=== PATIENT | female | born 1950 | race African-American/Black ===

== ENCOUNTER 2018-08-22 18:10 | Inpatient (IN) | payer MEDICARE, MEDICAID, SELFPAY ==
[2018-08-22 18:12] VITALS: BP 158/96; PULSE 73; RESP 18; TEMP 37.1; O2SAT 100; BMI 25.2
[2018-08-22] MEDS: HYDROcodone Bitartrate/Apap 5/325 Tablet PO (18:39)
--- NOTE | 2018-08-22 18:45 | RAD_ITS ---
STUDY: X-RAY - RIGHT KNEE REASON FOR EXAM: Female, 68 years old. Acute fracture of the distal femur. TECHNIQUE: AP and crosstable lateral view(s) of the knee. COMPARISON: Prior comparison studies are not available for review at this time. FINDINGS: There is demineralization of the visualized distal femur. There is an acute displaced fracture of the distal femoral diaphysis just proximal to the femoral prosthesis. Angulated fracture fragments are present at approximately 55 degrees There is demineralization of the tibia and fibula. 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 Patient has had a total right knee arthroplasty. Patient has distal femoral, proximal tibial and posterior patellar components. Normal patellofemoral articulation. There is a soft tissue prominence in the suprapatellar region suggesting a small volume joint effusion. There is soft tissue swelling. RAD/Knee 1 or 2 Views IMPRESSION: 1. Acute angulated displaced fracture of distal femoral diaphysis. 2. Osteoporosis. 3. Status post total right knee arthroplasty. Electronically Signed: Faith Garay MD at 19:34 EDT , Service support ,
[2018-08-22] MEDS: Morphine 4 MG/ML Syringe IV (19:00)
[2018-08-22] MEDS: Ondansetron 4 MG/2 ML Vial IV (19:00)
--- NOTE | 2018-08-22 19:08 | ED.RN ---
NO OLD EKGS IN MUSE
[2018-08-22 19:22] LABS: Absolute Lymphocyte Count 1.54 X10^3/ul (0.83-4.51); Absolute Neutrophil Count 3.9 X10^3/uL (2.0-7.7); Basophil# 0.01 X10^3/uL; Basophil% 0.2 % (0-1); Eosinophil# 0.07 X10^3/uL; Eosinophils% 1.2 % (0-5); Hematocrit 38.4 % (37-47); Hemoglobin 12.2 g/dl (12.0-15.0); Lymphocyte # 1.54 X10^3/ul (4.0); Lymphocyte % 26.1 % (19-41); Mean Corp Hgb Conc 31.8 g/gl (32-36); Mean Corpuscular Hgb 27.1 pg (27.0-32.0); Mean Corpuscular Volume 85.3 fL (81-99); Mean Platelet Vol. 8.7 fl (6.2-12.0); Monocyte# 0.38 X10^3/uL; Monocyte% 6.4 % (0-10); Neutrophil % 65.9 % (47-70); Platelet Count 304 K/mm3 (150-450); RBC Distribution Width SD 40.6 fl (35.1-43.9); White Blood Count 5.9 K/mm3 (4.4-11.0)
[2018-08-22 19:23] LABS: POSITIVE COUNT NO; POSITIVE DIFFERENTIAL NO; POSITIVE MORPHOLOGY NO
[2018-08-22 19:27] LABS: International Normalized Ratio 1.2; Prothrombin Time (Protime)PT. 14.9 SECONDS (11.7-14.9)
--- NOTE | 2018-08-22 19:27 | ED.VISSUMM ---
- ER Visit Summary Date of Service: 08/22/18 Chief Complaint: Right knee pain History of Present Illness: The patient is a 68 F who presents with right knee pain. She states that she fell on her deck. She was wearing flip-flops and slipped on the wet deck. Her right knee was caught behind her and she fell with all of her weight. She had a right total knee arthroplasty on that side in [address] [facility] in [place]. She was unable to walk afterwards. She called EMS. They administered a vacuum splint on that leg. Physical Examination: Vital signs reviewed. Right knee exam reveals no significant tenderness to palpation. However, if you move her knee and any range of motion it is painful. She has mild swelling. She has 2+ DP pulses. Test Results: Right knee x-ray reveals a right distal femur fracture Emergency Department Course and Treatment: Patient was discussed with Dr. Martines. She reviewed the images and she states that she will be able to repair this here. Patient was given [place] and morphine for pain. She will be admitted to the hospitalist. Treatment Plan: [] Disposition: Admit Impression: Closed right distal femur fracture This note was generated with Aprimo dictation software. It may contain incorrect words, spelling, and punctuation that were not noted in review of the chart prior to signing ED Disposition - Plan for ED Patient: Chief Complaint: Lower Extremity Injury Referrals: [facility] Doctor,Out of [Primary Care Provider] -
--- NOTE | 2018-08-22 19:34 | ED.DCSUM_ITS ---
- ER Visit Summary Date of Service: 08/22/18 Chief Complaint: Right knee pain History of Present Illness: The patient is a 68 F who presents with right knee pain. She states that she fell on her deck. She was wearing flip-flops and slipped on the wet deck. Her right knee was caught behind her and she fell with all of her weight. She had a right total knee arthroplasty on that side in 2016 at [facility] in [place]. She was unable to walk afterwards. She called EMS. They administered a vacuum splint on that leg. Physical Examination: Vital signs reviewed. Right knee exam reveals no significant tenderness to palpation. However, if you move her knee and any range of motion it is painful. She has mild swelling. She has 2+ DP pulses. Test Results: Right knee x-ray reveals a right distal femur fracture Emergency Department Course and Treatment: Patient was discussed with Dr. Martines. She reviewed the images and she states that she will be able to repair this here. Patient was given [place] and morphine for pain. She will be admitted to the hospitalist. Treatment Plan: [] Disposition: Admit Impression: Closed right distal femur fracture This note was generated with [employer] dictation software. It may contain incorrect words, spelling, and punctuation that were not noted in review of the chart prior to signing ED Disposition - Plan for ED Patient: Chief Complaint: Lower Extremity Injury Referrals: [facility] Doctor,Out of [Primary Care Provider] -
[2018-08-22 19:37] LABS: Anion Gap 10 (5-15); BUN 11 mg/dL (7-18); BUN/Creat Ratio 11.8 RATIO (10-20); Calcium,Total 9.2 mg/dL (8.5-10.1); Chloride 103 mmol/L (98-107); Creatinine, Serum 0.93 mg/dL (0.55-1.02); EST Glomerular Filtration Rate 63 mL/min (>60); Est Glom Filt Rate - Afr Amer 77 mL/min (>60); Estimated Creatinine Clearance 51.37 ml/min; Glucose 98 mg/dL (74-106); Potassium 3.9 mmol/L (3.5-5.1); Sodium Level 140 mmol/L (136-145)
--- NOTE | 2018-08-22 19:40 | HP.PCM_ITS ---
Problem List (1) Femur fracture, right Status: Acute (2) HTN (hypertension) Status: Chronic History of Present Illness Date of Admission: 08/22/18 Chief Complaint: FALL The patient is a 68 year old F with a significant history of hypertension, hyperlipidemia, arthritis, bilateral knee replacements who presented because of a fall on the same day of admission. Patient reported that while at home she slid and fell trapping her right leg. She denied any dizziness, or palpitations before the fall. She thinks that her fall was purely mechanical. She reports excruciating pain in her right knee because of the fall. She describes the pain as a 'strain'. In the same extremity she reports buttocks pain and leg pain. She sustained a bruise at her right posterior forearm; and a small wound at right medial ankle because of the fall. At emergency department she received pain medication that helped with her pain. X-ray showed Acute angulated displaced fracture of distal femoral diaphysis. Orthopedic doctor, Dr. Martines, was consulted by the ED doctor. Per ED doctor, Dr. Martines might do surgery tomorrow. Past Medical History Past Medical History (Chronic Problems): Chronic Problems HTN (hypertension) (Chronic) Allergies meloxicam Allergy (Verified 08/22/18 18:15) Itching Sulfa (Sulfonamide Antibiotics) Allergy (Verified 08/22/18 18:15) Swelling Home Medications: Ambulatory Orders Medication Instructions Recorded Amlodipine [Norvasc] 10 mg PO DAILY 08/22/18 Aspirin 81 mg PO DAILY 08/22/18 Atorvastatin Calcium [Lipitor] 20 mg PO QHS 08/22/18 Cholecalciferol (Vitamin D3) 2,000 unit PO DAILY 08/22/18 [Vitamin D3] Cyanocobalamin (Vitamin B-12) 1,000 mcg PO DAILY 08/22/18 [Vitamin B-12] Surgical History: - - Bilateral knee surgery; surgery on fourth finger of left hand. Bilateral foot surgery. Lives: - - She lives by herself in [place]. But she is currently visiting her youngest daughter. Smoking Status: Former smoker Alcohol: None - *Family History Maternal Family History: Family History (Last Updated 08/22/18 @ 20:02 by Rolando Aparicio MD) Mother Chronic mental illness Father Cancer Emphysema lung Review of Systems Constitutional: Denies: Chills, Fever, Weight Change Eyes: Denies: Blurred vision, Pain HEENT: Denies: Head Aches, Sinus Congestion, Sinus Drainage Cardiovascular: Denies: Chest Pain, Palpitations Respiratory: Denies: Cough, Shortness of Breath, Shortness of breath at rest, Shortness of breath upon exertion, Sputum production Gastrointestinal: Denies: Abdominal Pain, Nausea, Vomiting Genitourinary: Denies: Dysuria Musculoskeletal: Reports: Leg Pain - R leg. Denies: Joint Pain, Joint Tenderness Skin: Denies: Rash, Wounds Neurological: Denies: Numbness, Tingling, Focal weakness Psychiatric: Denies: Anxiety, Depression, Homicidal Ideations, Suicidal Ideations Hematologic/ Lymphatic: Denies: Easy Bruising, Easy Bleeding VTE Information - Inpt Only VTE Present on Admission: No VTE Mechan Device Prophylaxis: None VTE Pharm Prophylaxis ordered?: Yes Patient Problems: Active and Suspected Problems Femur fracture, right (Acute) - Physical Exam General: Alert, Oriented x3, Cooperative HEENT: Atraumatic, PERRLA, EOMI, Normocephalic Neck: Supple, No JVD, Negative Carotid Bruits Lungs: Clear to auscultation, Normal air movement Cardiovascular: Regular rate, No murmurs Abdomen: Bowel Sounds Present, Soft, Non Tender Extremities: Capillary Refill Less than 3 Seconds, - - Surgical scar on right knee. swelling of right thigh. Decreased range of motion of right lower extremities. Left lower extremities with sugar scar on knee, otherwise unremarkable Skin: Excoriated - right posterior forearm; opening at right medial ankle. Musculoskeletal: No Tenderness to Palpation of Joints or Extremities Neurological: Cranial nerves II-XII grossly intact Psych/Mental Status: Normal Affect, Anxious - and shaking Vital Signs Temp Pulse Resp BP Pulse Ox 98.7 F 73 18 158/96 H 100 08/22/18 18:12 08/22/18 18:12 08/22/18 18:12 08/22/18 18:12 08/22/18 18:12 Weight: 68.946 kg Body Mass Index (BMI) 25.2 Laboratory Tests Past 24 Hrs 08/22/18 08/22/18 08/22/18 19:10 19:10 19:10 WBC 5.9 RBC 4.50 Hgb 12.2 Hct 38.4 MCV 85.3 MCH 27.1 MCHC 31.8 L RDW 13.0 RDW Differential 40.6 Plt Count 304 MPV 8.7 Immature Gran % (Auto) 0.200 Neut % (Auto) 65.9 Lymph % (Auto) 26.1 [place] % (Auto) 6.4 Eos % (Auto) 1.2 Baso % (Auto) 0.2 Absolute Neuts (auto) 3.9 Absolute Lymphs (auto) 1.54 Total Counted Not Reportable PT 14.9 INR 1.2 Sodium 140 Potassium 3.9 Chloride 103 Carbon Dioxide 27.0 Anion Gap 10 BUN 11 Creatinine 0.93 Estim Creat Clear Calc 51.37 Est GFR (MDRD) Af Amer 77 Est GFR (MDRD) Non-Af 63 BUN/Creatinine Ratio 11.8 Glucose 98 Calcium 9.2 Assessment/Plan All Active Problems Femur fracture, right (Acute) The patient is a 68 year old F with a significant history of hypertension, hyperlipidemia, arthritis, bilateral knee replacements who presented because of a fall and found to have radiographic evidence of acute angulated displaced fracture of the distal femoral diaphysis. Acute angulated displaced fracture of the distal femoral diaphysis X-ray independent reviewed confirms acute angulated displaced fracture of the distal femoral diaphysis Pain control with as needed oxycodone morphine and scheduled Tylenol. Bowel pr otocol initiated. Keep patient n.p.o. for possible procedure in a.m. In view of patient being n.p.o. we will start IV fluids. Aspirin held. Vitamin D continued Vitamin D level ordered. Right posterior forearm excoriation and opening at right medial ankle. Left Leave CAMPAIGN CONSULTANT Hypertension Blood pressure uncontrolled at the time of admission. Amlodipine continued Labetalol as needed ordered. Hyperlipidemia Lipitor continued DVT prophylaxis Subcutaneous heparin. Code Visit Inpatient E&M: 66945 Init Hosp L3
[2018-08-22 19:48] VITALS: BMI 26.3
[2018-08-22] MEDS: Atorvastatin Calcium 20 MG Tablet PO (20:50)
[2018-08-22] MEDS: 0.9% Normal Saline 1,000 ML 75 ML IV (20:50)
[2018-08-22] MEDS: Heparin Injection (Vial) 5,000 UNIT/ML VIAL 5000 UNIT SC (20:50)
[2018-08-22] MEDS: Senna Tablet 1 TABLET PO (20:50)
[2018-08-22] MEDS: oxyCODONE 5 MG Tablet 10 MG PO (20:51)
[2018-08-22 21:06] VITALS: BMI 26.3
[2018-08-22 21:36] LABS: Vitamin D,25 Hydroxy 37.6 ng/mL (29.95-100.01)
[2018-08-22 22:56] VITALS: BP 119/69; PULSE 90; RESP 18; TEMP 37.2; O2SAT 98
[2018-08-22] MEDS: Morphine 2 MG/ML Syringe IV (22:59)
[2018-08-22] MEDS: Acetaminophen 500 MG Tablet PO (22:59)
[2018-08-23] VITALS (12 sets, daily range): BP systolic 93–116; BP diastolic 55–79; PULSE 67–94; RESP 15–16; TEMP 36.5–37.4; O2SAT 91–98; BMI 26.3
[2018-08-23] MEDS: Morphine 2 MG/ML Syringe IV (06:48)
[2018-08-23 08:20] LABS: BUN 11 mg/dL (7-18); BUN/Creat Ratio 13.6 RATIO (10-20); Calcium,Total 7.8 mg/dL (8.5-10.1); Creatinine, Serum 0.81 mg/dL (0.55-1.02); EST Glomerular Filtration Rate 74 mL/min (>60); Est Glom Filt Rate - Afr Amer 90 mL/min (>60); Glucose 104 mg/dL (74-106)
[2018-08-23 08:21] LABS: Anion Gap 10 (5-15); Chloride 105 mmol/L (98-107); Potassium 3.9 mmol/L (3.5-5.1); Sodium Level 142 mmol/L (136-145)
--- NOTE | 2018-08-23 09:06 | CASEMGMT ---
RICHAR VELASCO Assessment PCP: Dr. Jazzmine Gaspar ([place], [place]) Specialists: Ortho physician retired Pharmacy: [facility] [place] -pt would like scripts sent to [facility] on [address]. Entered in chart Prescription coverage: Yes Living Arrangements: Lives in [place] in ground floor apartment. Was in [place] staying with daughter to help with children when fell. DME: Has walker, cane tub bench in her [place] apartment. Daughter will bring down for her. Social Work Consult:no Intro role of CM to patient in room. She plans to return to her daughter's home in [place] on dc. Daughter has two story home, bedrooms upstairs. RN ROD Encouraged pt to have daughter bring her walker from her apartment for use on dc. -PT/OT evaluations pending due to procedure today. Dr. Martines consult. DC PLAN: Home pending PT/OT evaluations and pt ability on dc.
[2018-08-23] MEDS: Dext 5%-0.45% NS 1,000 ML 75 ML IV ×2 (11:15→16:55)
--- NOTE | 2018-08-23 12:01 | PCM.PN.HOSP ---
Patient Problems: Active and Suspected Problems Femur fracture, right (Acute) Subjective: Patient was admitted yesterday after she had mechanical fall complicating into angulated displaced fracture of distal femoral diaphysis. Patient denies cardiac, pulmonary or abdominal chronic disease. She slipped and fell down with right leg trapped under her buttock. She has bilateral TKR. Vitals/I&O's: Vital Signs Temp Pulse Resp BP Pulse Ox 99.4 F H 82 16 113/79 97 08/23/18 11:46 08/23/18 11:46 08/23/18 11:46 08/23/18 11:46 08/23/18 11:46 Oxygen Delivery Method Room Air Weight: 158 lb 1.143 oz Body Mass Index (BMI) 26.3 Intake and Output for Last 24 Hours 08/21/18 08/22/18 08/23/18 23:59 23:59 23:59 Intake Total 852 / 852 Output Total 800 / 800 Balance 52 / 52 General: Alert, Oriented x3, Cooperative HEENT: Atraumatic, PERRLA, EOMI, Normocephalic Neck: Supple, No JVD, Negative Carotid Bruits Lungs: Clear to auscultation, Normal air movement Cardiovascular: Regular rate, Regular Rhythm, Normal S1, Normal S2, No murmurs Abdomen: Bowel Sounds Present, Soft, Non Tender, Non-Distended Extremities: Capillary Refill Less than 3 Seconds, Edema - Right thigh edema Skin: No rashes, No breakdown Musculoskeletal: No Tenderness to Palpation of Joints or Extremities, Arthritic Changes, Muscle Wasting Neurological: Cranial nerves II-XII grossly intact, Neuro grossly intact Psych/Mental Status: Normal Affect, Appropriate Laboratory Results 08/22/18 19:10: WBC 5.9, RBC 4.50, Hgb 12.2, Hct 38.4, MCV 85.3, MCH 27.1, MCHC 31.8 L, RDW 13.0, RDW Differential 40.6, Plt Count 304, MPV 8.7, Immature Gran % (Auto) 0.200, Neut % (Auto) 65.9, Lymph % (Auto) 26.1, [place] % (Auto) 6.4, Eos % (Auto) 1.2, Baso % (Auto) 0.2, Absolute Neuts (auto) 3.9, Absolute Lymphs (auto) 1.54, Total Counted Not Reportable 08/22/18 19:10: PT 14.9, INR 1.2 08/22/18 19:10: Sodium 140, Potassium 3.9, Chloride 103, Carbon Dioxide 27.0, Anion Gap 10, BUN 11, Creatinine 0.93, Estim Creat Clear Calc 51.37, Est GFR (MDRD) Af Amer 77, Est GFR (MDRD) Non-Af 63, BUN/Creatinine Ratio 11.8, Glucose 98, Calcium 9.2 08/22/18 20:51: Vitamin D 25-Hydroxy 37.6 08/23/18 07:00: Sodium 142, Potassium 3.9, Chloride 105, Carbon Dioxide 27.0, Anion Gap 10, BUN 11, Creatinine 0.81, Estim Creat Clear Calc 56.60, Est GFR (MDRD) Af Amer 90, Est GFR (MDRD) Non-Af 74, BUN/Creatinine Ratio 13.6, Glucose 104, Calcium 7.8 L Current Medications Acetaminophen (Tylenol) 500 mg PO Q6 [facility] Last Admin: 08/23/18 04:46 Dose: Not Given Amlodipine Besylate (Norvasc) 10 mg PO DAILY [facility] Atorvastatin Calcium (Lipitor) 20 mg PO QHS [facility] Last Admin: 08/22/18 20:50 Dose: 20 mg Cholecalciferol (Vitamin D) 2,000 unit PO DAILY [facility] Cyanocobalamin (Vitamin B12) 1,000 mcg PO DAILY [facility] Heparin Sodium (Porcine) (Heparin Na) 5,000 unit SC Q8 [facility] Last Admin: 08/23/18 04:45 Dose: Not Given Cefazolin Sodium 2 gm/ Sodium (Chloride) 120 mls @ 240 mls/hr IV SEND TO OR W/PATIENT ONE Stop: 08/23/18 12:29 Dextrose/Sodium Chloride () 1,000 mls @ 75 mls/hr IV .[id number] [facility] Last Admin: 08/23/18 11:15 Dose: 75 mls/hr Labetalol HCl (Trandate) 10 mg IV Q4H PRN PRN PRN Reason: SBP > 160 Magnesium Hydroxide (Milk Of Magnesia) 30 ml PO DAILY PRN PRN PRN Reason: Constipation Morphine Sulfate () 1 - 2 mg IV Q4H PRN PRN PRN Reason: SEVERE PAIN (-08/27) Last Admin: 08/23/18 06:48 Dose: 2 mg Ondansetron HCl (Zofran) 4 mg IV Q8H PRN PRN PRN Reason: NAUSEA Oxycodone HCl (Oxyir) 10 mg PO Q4H PRN PRN PRN Reason: MODERATE PAIN (4-5/10) Last Admin: 08/22/18 20:51 Dose: 10 mg Senna (Senokot) 1 tablet PO BID [facility] Last Admin: 08/22/18 20:50 Dose: 1 tablet Sodium Chloride () 5 - 30 ml IV UD PRN PRN Reason: SALINE FLUSH Zolpidem Tartrate (Ambien (Generic)) 5 mg PO QHS PRN PRN PRN Reason: INSOMNIA Medical Necessity - Tobacco Use Smoking Status: Former smoker Assessment/Plan All Active Problems Femur fracture, right (Acute) The patient is a 68 year old F with a significant history of hypertension, hyperlipidemia, arthritis, bilateral knee replacements who presented because of a fall and found to have radiographic evidence of acute angulated displaced fracture of the distal femoral diaphysis. Patient denies cardiac history including CHF, coronary artery disease/[place], chronic pulmonary disease or stroke. 1. Acute angulated displaced fracture of the distal femoral diaphysis secondary to mechanical fall X-ray reported as acute angulated displaced fracture of the distal femoral diaphysis Pain control with as needed oxycodone morphine and scheduled Tylenol. Bowel protocol initiated. Patient is n.p.o. and is scheduled for orthopedic procedure as recommended by orthopedic surgeon. On IV fluid D5-NS. Aspirin held. Vitamin D continued Vitamin D level ordered. Right posterior forearm excoriation and at right medial ankle. Mupirocin dressing. Leave open Hypertension Blood pressure uncontrolled at the time of admission. Currently controlled. Amlodipine continued Labetalol as needed ordered. Dyslipidemia Lipitor continued DVT prophylaxis Subcutaneous heparin. Home medication reconciliation done. Code Visit Inpatient E&M: 52141 [facility] L3
--- NOTE | 2018-08-23 12:08 | PN_ITS ---
Patient Problems: Active and Suspected Problems Femur fracture, right (Acute) Subjective: Patient was admitted yesterday after she had mechanical fall complicating into angulated displaced fracture of distal femoral diaphysis. Patient denies cardiac, pulmonary or abdominal chronic disease. She slipped and fell down with right leg trapped under her buttock. She has bilateral TKR. Vitals/I&O's: Vital Signs Temp Pulse Resp BP Pulse Ox 99.4 F H 82 16 113/79 97 08/23/18 11:46 08/23/18 11:46 08/23/18 11:46 08/23/18 11:46 08/23/18 11:46 Oxygen Delivery Method Room Air Weight: 158 lb 1.143 oz Body Mass Index (BMI) 26.3 Intake and Output for Last 24 Hours 08/21/18 08/22/18 08/23/18 23:59 23:59 23:59 Intake Total 852 / 852 Output Total 800 / 800 Balance 52 / 52 General: Alert, Oriented x3, Cooperative HEENT: Atraumatic, PERRLA, EOMI, Normocephalic Neck: Supple, No JVD, Negative Carotid Bruits Lungs: Clear to auscultation, Normal air movement Cardiovascular: Regular rate, Regular Rhythm, Normal S1, Normal S2, No murmurs Abdomen: Bowel Sounds Present, Soft, Non Tender, Non-Distended Extremities: Capillary Refill Less than 3 Seconds, Edema - Right thigh edema Skin: No rashes, No breakdown Musculoskeletal: No Tenderness to Palpation of Joints or Extremities, Arthritic Changes, Muscle Wasting Neurological: Cranial nerves II-XII grossly intact, Neuro grossly intact Psych/Mental Status: Normal Affect, Appropriate Laboratory Results 08/22/18 19:10: WBC 5.9, RBC 4.50, Hgb 12.2, Hct 38.4, MCV 85.3, MCH 27.1, MCHC 31.8 L, RDW 13.0, RDW Differential 40.6, Plt Count 304, MPV 8.7, Immature Gran % (Auto) 0.200, Neut % (Auto) 65.9, Lymph % (Auto) 26.1, [place] % (Auto) 6.4, Eos % (Auto) 1.2, Baso % (Auto) 0.2, Absolute Neuts (auto) 3.9, Absolute Lymphs (auto) 1.54, Total Counted Not Reportable 08/22/18 19:10: PT 14.9, INR 1.2 08/22/18 19:10: Sodium 140, Potassium 3.9, Chloride 103, Carbon Dioxide 27.0, Anion Gap 10, BUN 11, Creatinine 0.93, Estim Creat Clear Calc 51.37, Est GFR (MDRD) Af Amer 77, Est GFR (MDRD) Non-Af 63, BUN/Creatinine Ratio 11.8, Glucose 98, Calcium 9.2 08/22/18 20:51: Vitamin D 25-Hydroxy 37.6 08/23/18 07:00: Sodium 142, Potassium 3.9, Chloride 105, Carbon Dioxide 27.0, Anion Gap 10, BUN 11, Creatinine 0.81, Estim Creat Clear Calc 56.60, Est GFR (MDRD) Af Amer 90, Est GFR (MDRD) Non-Af 74, BUN/Creatinine Ratio 13.6, Glucose 104, Calcium 7.8 L Current Medications Acetaminophen (Tylenol) 500 mg PO Q6 [facility] Last Admin: 08/23/18 04:46 Dose: Not Given Amlodipine Besylate (Norvasc) 10 mg PO DAILY [facility] Atorvastatin Calcium (Lipitor) 20 mg PO QHS [facility] Last Admin: 08/22/18 20:50 Dose: 20 mg Cholecalciferol (Vitamin D) 2,000 unit PO DAILY [facility] Cyanocobalamin (Vitamin B12) 1,000 mcg PO DAILY [facility] Heparin Sodium (Porcine) (Heparin Na) 5,000 unit SC Q8 [facility] Last Admin: 08/23/18 04:45 Dose: Not Given Cefazolin Sodium 2 gm/ Sodium (Chloride) 120 mls @ 240 mls/hr IV SEND TO OR W/PATIENT ONE Stop: 08/23/18 12:29 Dextrose/Sodium Chloride () 1,000 mls @ 75 mls/hr IV .[id number] [facility] Last Admin: 08/23/18 11:15 Dose: 75 mls/hr Labetalol HCl (Trandate) 10 mg IV Q4H PRN PRN PRN Reason: SBP > 160 Magnesium Hydroxide (Milk Of Magnesia) 30 ml PO DAILY PRN PRN PRN Reason: Constipation Morphine Sulfate () 1 - 2 mg IV Q4H PRN PRN PRN Reason: SEVERE PAIN (-08/27) Last Admin: 08/23/18 06:48 Dose: 2 mg Ondansetron HCl (Zofran) 4 mg IV Q8H PRN PRN PRN Reason: NAUSEA Oxycodone HCl (Oxyir) 10 mg PO Q4H PRN PRN PRN Reason: MODERATE PAIN (4-5/10) Last Admin: 08/22/18 20:51 Dose: 10 mg Senna (Senokot) 1 tablet PO BID [facility] Last Admin: 08/22/18 20:50 Dose: 1 tablet Sodium Chloride () 5 - 30 ml IV UD PRN PRN Reason: SALINE FLUSH Zolpidem Tartrate (Ambien (Generic)) 5 mg PO QHS PRN PRN PRN Reason: INSOMNIA Medical Necessity - Tobacco Use Smoking Status: Former smoker Assessment/Plan All Active Problems Femur fracture, right (Acute) The patient is a 68 year old F with a significant history of hypertension, hyperlipidemia, arthritis, bilateral knee replacements who presented because of a fall and found to have radiographic evidence of acute angulated displaced fracture of the distal femoral diaphysis. Patient denies cardiac history including CHF, coronary artery disease/[place], chronic pulmonary disease or stroke. 1. Acute angulated displaced fracture of the distal femoral diaphysis secondary to mechanical fall X-ray reported as acute angulated displaced fracture of the distal femoral diaphysis Pain control with as needed oxycodone morphine and scheduled Tylenol. Bowel protocol initiated. Patient is n.p.o. and is scheduled for orthopedic procedure as recommended by orthopedic surgeon. On IV fluid D5-NS. Aspirin held. Vitamin D continued Vitamin D level ordered. Right posterior forearm excoriation and at right medial ankle. Mupirocin dressing. Leave open Hypertension Blood pressure uncontrolled at the time of admission. Currently controlled. Amlodipine continued Labetalol as needed ordered. Dyslipidemia Lipitor continued DVT prophylaxis Subcutaneous heparin. Home medication reconciliation done. Code Visit Inpatient E&M: [id number] [facility] L3
--- NOTE | 2018-08-23 13:19 | NURSING ---
PT TO OR VIA BED.
[2018-08-23] MEDS: Cefazolin 2 GM in 0.9% Normal Saline 100 ML IV (13:35)
--- NOTE | 2018-08-23 13:36 | PCM.CONS.GEN ---
Problem List (1) Fracture, femur, distal Status: Acute Qualifiers: Encounter type: initial encounter Fracture type: closed Fracture morphology: other fracture Laterality: right Qualified Code(s): S72.491A - Other fracture of lower end of right femur, initial encounter for closed fracture Reason for Consult History of Present Illness: The patient is a 68 year old F [] Past Medical History Past Medical History (Chronic Problems): Chronic Problems HTN (hypertension) (Chronic) Allergies meloxicam Allergy (Verified 08/22/18 18:15) Itching Sulfa (Sulfonamide Antibiotics) Allergy (Verified 08/22/18 18:15) Swelling Home Medications: Ambulatory Orders Medication Instructions Recorded Acetaminophen 500 mg PO TID PRN PRN 08/22/18 Amlodipine [Norvasc] 10 mg PO DAILY 08/22/18 Aspirin 81 mg PO DAILY 08/22/18 Atorvastatin Calcium [Lipitor] 20 mg PO QHS 08/22/18 Cholecalciferol (Vitamin D3) 2,000 unit PO DAILY 08/22/18 [Vitamin D3] Cyanocobalamin (Vitamin B-12) 1,000 mcg PO DAILY 08/22/18 [Vitamin B-12] Surgical History: - - Bilateral knee surgery; surgery on fourth finger of left hand. Bilateral foot surgery. Lives: - - She lives by herself in [place]. But she is currently visiting her youngest daughter. Smoking Status: Former smoker Alcohol: None - *Family History Maternal Family History: Family History (Last Updated 08/22/18 @ 20:02 by Rolando Aparicio MD) Mother Chronic mental illness Father Cancer Emphysema lung Patient Problems: Active and Suspected Problems Femur fracture, right (Acute) Fracture, femur, distal (Acute) - Physical Exam Vital Signs Temp Pulse Resp BP Pulse Ox 99.4 F H 82 16 113/79 97 08/23/18 11:46 08/23/18 11:46 08/23/18 11:46 08/23/18 11:46 08/23/18 11:46 Oxygen Delivery Method Room Air Weight: 158 lb 1.143 oz Body Mass Index (BMI) 26.3 Intake and Output for Last 24 Hours 08/21/18 08/22/18 08/23/18 23:59 23:59 23:59 Intake Total 1372 / 1372 Output Total 1050 / 1050 Balance 322 / 322 Laboratory Tests Past 24 Hrs 08/22/18 08/22/18 08/22/18 19:10 19:10 19:10 WBC 5.9 RBC 4.50 Hgb 12.2 Hct 38.4 MCV 85.3 MCH 27.1 MCHC 31.8 L RDW 13.0 RDW Differential 40.6 Plt Count 304 MPV 8.7 Immature Gran % (Auto) 0.200 Neut % (Auto) 65.9 Lymph % (Auto) 26.1 Payette % (Auto) 6.4 Eos % (Auto) 1.2 Baso % (Auto) 0.2 Absolute Neuts (auto) 3.9 Absolute Lymphs (auto) 1.54 Total Counted Not Reportable PT 14.9 INR 1.2 Sodium 140 Potassium 3.9 Chloride 103 Carbon Dioxide 27.0 Anion Gap 10 BUN 11 Creatinine 0.93 Estim Creat Clear Calc 51.37 Est GFR (MDRD) Af Amer 77 Est GFR (MDRD) Non-Af 63 BUN/Creatinine Ratio 11.8 Glucose 98 Calcium 9.2 Vitamin D 25-Hydroxy 08/22/18 08/23/18 20:51 07:00 WBC RBC Hgb Hct MCV MCH MCHC RDW RDW Differential Plt Count MPV Immature Gran % (Auto) Neut % (Auto) Lymph % (Auto) Payette % (Auto) Eos % (Auto) Baso % (Auto) Absolute Neuts (auto) Absolute Lymphs (auto) Total Counted PT INR Sodium 142 Potassium 3.9 Chloride 105 Carbon Dioxide 27.0 Anion Gap 10 BUN 11 Creatinine 0.81 Estim Creat Clear Calc 56.60 Est GFR (MDRD) Af Amer 90 Est GFR (MDRD) Non-Af 74 BUN/Creatinine Ratio 13.6 Glucose 104 Calcium 7.8 L Vitamin D 25-Hydroxy 37.6 Assessment/Plan All Active Problems Femur fracture, right (Acute) Fracture, femur, distal (Acute)
--- NOTE | 2018-08-23 13:38 | PCM.CONS.GEN ---
Problem List (1) Fracture, femur, distal Status: Acute Qualifiers: Encounter type: initial encounter Fracture type: closed Fracture morphology: other fracture Laterality: right Qualified Code(s): S72.491A - Other fracture of lower end of right femur, initial encounter for closed fracture Reason for Consult Date of Consultation: 08/23/18 Reason for Consultation: right femur fracture History of Present Illness: The patient is a 68 year old F who slipped in her flip flop slippers walking thru door and on water and hyperflexed her right knee and landed on it. Had to then straighten out her leg and was unable to weight bear on right leg. brought to er where xrays confirm distal femur fracture and ortho consulted. no head trauma, loc, nausea, vomiting, or other constitutional symptoms. pain localized to right knee. had total knee replacement at OSH and has had no issues or pain in knee recently. [] Past Medical History Past Medical History (Chronic Problems): Chronic Problems HTN (hypertension) (Chronic) Allergies meloxicam Allergy (Verified 08/22/18 18:15) Itching Sulfa (Sulfonamide Antibiotics) Allergy (Verified 08/22/18 18:15) Swelling Home Medications: Ambulatory Orders Medication Instructions Recorded Acetaminophen 500 mg PO TID PRN PRN 08/22/18 Amlodipine [Norvasc] 10 mg PO DAILY 08/22/18 Aspirin 81 mg PO DAILY 08/22/18 Atorvastatin Calcium [Lipitor] 20 mg PO QHS 08/22/18 Cholecalciferol (Vitamin D3) 2,000 unit PO DAILY 08/22/18 [Vitamin D3] Cyanocobalamin (Vitamin B-12) 1,000 mcg PO DAILY 08/22/18 [Vitamin B-12] Surgical History: - - Bilateral knee surgery; surgery on fourth finger of left hand. Bilateral foot surgery. Lives: - - She lives by herself in [place]. But she is currently visiting her youngest daughter. Smoking Status: Former smoker Alcohol: None - *Family History Maternal Family History: Family History (Last Updated 08/22/18 @ 20:02 by Rolando Aparicio MD) Mother Chronic mental illness Father Cancer Emphysema lung Review of Systems Constitutional: Denies: Chills, Fever, Weight Change HEENT: Denies: Head Aches, Sinus Congestion, Sinus Drainage Cardiovascular: Denies: Chest Pain, Palpitations Respiratory: Denies: Cough, Shortness of breath at rest, Sputum production Gastrointestinal: Denies: Abdominal Pain, Nausea, Vomiting Genitourinary: Denies: Dysuria Musculoskeletal: Reports: Leg Pain. Denies: Joint Pain, Joint Tenderness Skin: Denies: Rash, Wounds Neurological: Denies: Numbness, Tingling, Focal weakness Psychiatric: Denies: Anxiety, Depression, Homicidal Ideations, Suicidal Ideations Hematologic/ Lymphatic: Denies: Easy Bruising, Easy Bleeding Patient Problems: Active and Suspected Problems Femur fracture, right (Acute) Fracture, femur, distal (Acute) - Physical Exam General: Alert, Oriented x3, Cooperative HEENT: Atraumatic, PERRLA, EOMI, Normocephalic Neck: Supple, No JVD, Negative Carotid Bruits Lungs: Clear to auscultation, Normal air movement Cardiovascular: Regular rate, No murmurs Abdomen: Bowel Sounds Present, Soft, Non Tender Extremities: No edema, Capillary Refill Less than 3 Seconds Skin: No rashes, No breakdown Musculoskeletal: Tenderness - right distal femur pain, no hip pain, sgi, compts soft, toes rom intact without pain, secondary survey negative Neurological: Cranial nerves II-XII grossly intact Psych/Mental Status: Normal Affect, Appropriate Vital Signs Temp Pulse Resp BP Pulse Ox 99.4 F H 82 16 113/79 97 08/23/18 11:46 08/23/18 11:46 08/23/18 11:46 08/23/18 11:46 08/23/18 11:46 Oxygen Delivery Method Room Air Weight: 158 lb 1.143 oz Body Mass Index (BMI) 26.3 Intake and Output for Last 24 Hours 08/21/18 08/22/18 08/23/18 23:59 23:59 23:59 Intake Total 1372 / 1372 Output Total 1050 / 1050 Balance 322 / 322 Laboratory Tests Past 24 Hrs 08/22/18 08/22/18 08/22/18 19:10 19:10 19:10 WBC 5.9 RBC 4.50 Hgb 12.2 Hct 38.4 MCV 85.3 MCH 27.1 MCHC 31.8 L RDW 13.0 RDW Differential 40.6 Plt Count 304 MPV 8.7 Immature Gran % (Auto) 0.200 Neut % (Auto) 65.9 Lymph % (Auto) 26.1 Alfalfa % (Auto) 6.4 Eos % (Auto) 1.2 Baso % (Auto) 0.2 Absolute Neuts (auto) 3.9 Absolute Lymphs (auto) 1.54 Total Counted Not Reportable PT 14.9 INR 1.2 Sodium 140 Potassium 3.9 Chloride 103 Carbon Dioxide 27.0 Anion Gap 10 BUN 11 Creatinine 0.93 Estim Creat Clear Calc 51.37 Est GFR (MDRD) Af Amer 77 Est GFR (MDRD) Non-Af 63 BUN/Creatinine Ratio 11.8 Glucose 98 Calcium 9.2 Vitamin D 25-Hydroxy 08/22/18 08/23/18 20:51 07:00 WBC RBC Hgb Hct MCV MCH MCHC RDW RDW Differential Plt Count MPV Immature Gran % (Auto) Neut % (Auto) Lymph % (Auto) Alfalfa % (Auto) Eos % (Auto) Baso % (Auto) Absolute Neuts (auto) Absolute Lymphs (auto) Total Counted PT INR Sodium 142 Potassium 3.9 Chloride 105 Carbon Dioxide 27.0 Anion Gap 10 BUN 11 Creatinine 0.81 Estim Creat Clear Calc 56.60 Est GFR (MDRD) Af Amer 90 Est GFR (MDRD) Non-Af 74 BUN/Creatinine Ratio 13.6 Glucose 104 Calcium 7.8 L Vitamin D 25-Hydroxy 37.6 Assessment/Plan All Active Problems Femur fracture, right (Acute) Fracture, femur, distal (Acute) right distal femur intact xrays of entire femur intraop as not done in ER consent with sachinugther present di discussed risks benefits and alternatives surgery. Risks including but not limited to blood loss, blood clot, infection, neurovascular injury, failure procedure, loss of life and loss of limb. Patient and daughter aware would like proceed with right intramedullary fixation of distal femur versus open reduction internal fixation with plating. Ancef on-call the OR [employer] rep notified As long as fracture well aligned well-positioned Intra-Op should be able to weight-bear as tolerated postop Distal planning Lovenox postop This note was generated with P[employer] software. It may contain incorrect words, spelling, and punctuation that were not noted in checking the note before signing.
--- NOTE | 2018-08-23 13:42 | RAD_ITS ---
STUDY: X-RAY - RIGHT FEMUR REASON FOR STUDY: Female, 68 years old. Intramedullary bob placement. TECHNIQUE: Radiological exam, femur, minimum 2 views COMPARISON: August 22, 2018 FINDINGS: 6 intraoperative digital documentation images show placement of an intramedullary bob within the femur. The distal femoral fracture is still identified but is in more anatomic alignment on the prior study. No complications are noted. Normal visualized soft tissue structure. RAD/Femur Min 2 Views IMPRESSION: Intraoperative digital documentation images of intramedullary bob placement without complications. Electronically Signed: Alex Lyons MD at 16:05 EDT , Service support ,
--- NOTE | 2018-08-23 13:45 | FEM_PTH ---
PATIENT: VICENTE REYNOLDS LOC: [facility] U#:[id number] AGE/SX: 68/F ROOM: [facility]308 RE08/22/[address]: Dr. Ozzy Combs MD : 1950 BED: 1 DIS: 08/25/2018 SPEC #: [id number] RECD: 08/25/18 09:19 STATUS: BRITTANI REQ #: [id number] JULIANNA: 08/23/18 13:[address]: Solange Martines DEPT: SURGICAL PATHOLOGY RECD BY: Shelli Hinds ENTERED: 08/25/18 12:06 SP TYPE: FEM HEAD OTHR DR: MD Dr. Rolando Yoder MD No Primary Care Phys Tissues: Femoral region, NOS Procedures: Decalcification bone/plaque Surgery Specimen Level IV HEADER OPERATION: Right femur retrograde intramedullary nailing PRE-OP DIAGNOSIS: Right distal fracture - periprosthetic fracture TISSUE SUBMITTED: Right femoral reamings MICROSCOPIC DIAGNOSIS Right femoral reamings: Fragments of bone reamings with focal area of hemorrhage, clinically periprosthetic fracture. RAMIN:ruiz 08/28/18 MICROSCOPIC DESCRIPTION Slides are reviewed. GROSS DESCRIPTION Received in fixative is one container labeled with the patient's name and designated right femoral reamings. The specimen consists of multiple fragments of hemorrhagic bone reamings that in aggregate measure 2.5 x 1 x 0.3 cm. The entire specimen is submitted in one cassette after decalcification. / Ambrocio 08/25/18 TC: 5 CPT: 31167, 11825
--- NOTE | 2018-08-23 13:45 | RAD_ITS ---
STUDY: X-RAY - RIGHT FEMUR REASON FOR STUDY: Female, 68 years old. Postoperative evaluation after intramedullary bob placement. TECHNIQUE: Radiological exam, femur, minimum 2 views COMPARISON: Earlier in the day and August 22, 2018. FINDINGS: There is generalized osteopenia. And intramedullary bob with proximal and distal interlocking cancellus screws is present in the right femur. There is near-anatomic alignment at the previously described distal femoral fracture site. There is a 3 component total knee arthroplasty. There are skin yancy and soft tissue gas. RAD/Femur Min 2 Views IMPRESSION: Osteopenia with postsurgical changes as described. Electronically Signed: Alex Lyons MD at 21:07 EDT , Service support ,
--- NOTE | 2018-08-23 15:38 | PCM.OPRPT ---
Problem List (1) Fracture, femur, distal Status: Acute Qualifiers: Encounter type: initial encounter Fracture type: closed Fracture morphology: other fracture Laterality: right Qualified Code(s): S72.491A - Other fracture of lower end of right femur, initial encounter for closed fracture (2) Holly-prosthetic femoral shaft fracture Status: Acute Report of Operation Date of Procedure: 08/23/18 Pre-Operative Diagnosis: right distal femur shaft periprosthetic fracture Post-Operative Diagnosis: same Surgery/Procedure Performed:: right retrograde intramedullary nailing Type of Anesthesia:: General Anesthesiologist: Bianka Myers Estimated Blood Loss (mL): 100cc Fluids Replaced: 1500 cc LR Description of Procedure: Preoperative note Patient is a 68-year-old female who slid on water in her flip flop slippers going out the door pain flexion deformity and strain her leg I was unable unable to walk then was brought to the emergency room where x-rays confirmed a distal shaft periprosthetic fracture of the right leg. Orthosis consulted. Risks benefits and alternatives surgery discussed with patient. Risks including but not limited to blood loss, blood clot, infection, neurovascular, failure procedure, loss of life and loss of limb. Patient is aware and would like proceed with right retrograde femoral nailing and possible open reduction internal fixation. Operative note Patient seen and examined preoperative holding area. Right knee was marked. Patient secondary survey was essentially negative. No hip pain. Patient is brought to the operating placed supine on the operating table. Signing consent, and antibiotics, anesthesia was administered. The right leg was prepped and draped in usual sterile fashion. We then used fluoroscopy to see whether or not the fracture to be reduced closed which it was. Timeout was performed. We then palpated our incision incision using on fluoroscopy as well and using her previous total knee arthroplasty incision at the distal pole. We then used a 10 blade cut the skin dissected down with tenotomy syllable of the peritenon which was excised and the tendon was split in the middle of the tendon. We then use our guidewire and center center in the box of the femoral implant. We checked an AP and lateral planes good reduction and good alignment of our guidewire which we did have. We then overreamed using a tissue protector and then placed our ball-tip guidewire down the level of the lesser troches. We then measured to be about 340s we decided to place a 320. We then reamed sequentially up to about a 12-1/2 and placed an 11 x 326 retrograde femoral nailing screw we then Under standard technique. We then placed 2 screws from the and will start 1 screw and a spiral blade using the outrigger in standard technique starting laterally ensuring that we were anterior enough to divide to avoid all neurovascular structures. After this was done we did locked proximally using the perfect cahto technique. We had good fixation of the nail proximally and distally and good reduction of her fracture site in both AP and lateral planes on final fluoroscopy images. We then irrigated all incision with copious amounts of sterile saline. The patella tendon was closed with interrupted start with a running 3-0 Vicryl and the peritenon was closed with interrupted 3-0 Vicryls. The subcuticular skin was closed with a 3-0 Vicryls and the skin was closed with yancy. We then closed the insert perfect Cachil Dehe proximal femur incisions with 3-0 Vicryl and yancy in the lateral incision with again Vicryl and yancy. STERILE dressings were applied patient was placed in a knee immobilizer. Patient tolerated procedure well there are no comp occasions transferred to recovery room in stable condition. Next Postoperative note Resume heparin SCDs Toe-touch weightbearing right leg Ancef 24 hours Discussed with daughter Postop x-rays to be done in the PACU Dragon disclaimer This note was generated with [employer] dictation software. It may contain incorrect words, spelling, and punctuation that were not noted in checking the note before signing.
[2018-08-23] MEDS: Acetaminophen 500 MG Tablet PO (17:20)
[2018-08-23] MEDS: Cefazolin 1 GM/50 ML BAG IV (21:15)
[2018-08-23] MEDS: Heparin Injection (Vial) 5,000 UNIT/ML VIAL 5000 UNIT SC (21:20)
[2018-08-23] MEDS: Atorvastatin Calcium 20 MG Tablet PO (21:21)
[2018-08-23] MEDS: Senna Tablet 1 TABLET PO (21:24)
[2018-08-23] MEDS: oxyCODONE 5 MG Tablet 10 MG PO (22:44)
[2018-08-24 01:00] VITALS: BP 120/60; PULSE 80; RESP 18; TEMP 36.7; O2SAT 98
[2018-08-24] MEDS: Acetaminophen 500 MG Tablet PO ×5 (01:20→23:09)
[2018-08-24] MEDS: oxyCODONE 5 MG Tablet 10 MG PO ×2 (04:02→21:26)
[2018-08-24 04:58] VITALS: BP 104/64; PULSE 68; RESP 16; TEMP 36.6; O2SAT 100
[2018-08-24] MEDS: Cefazolin 1 GM/50 ML BAG IV (05:00)
[2018-08-24] MEDS: Dext 5%-0.45% NS 1,000 ML 75 ML IV ×2 (05:03→18:10)
[2018-08-24] MEDS: Heparin Injection (Vial) 5,000 UNIT/ML VIAL 5000 UNIT SC ×3 (06:04→21:21)
[2018-08-24 06:50] VITALS: O2SAT 98
--- NOTE | 2018-08-24 07:22 | PCM.PN.ORT ---
Patient Problems: Active and Suspected Problems Femur fracture, right (Acute) Fracture, femur, distal (Acute) Holly-prosthetic femoral shaft fracture (Acute) Subjective: Patient seen and examined at bedside. Has no numbness tingling fevers or chills. She has been doing ankle pumps she has not had a bowel movement yet. She is using the incentive spirometer bedside. Denies fevers chills chest pain shortness of breath or other constitutional symptoms. - Physical Exam General: Alert, Oriented x3, Cooperative HEENT: Atraumatic, PERRLA, EOMI, Normocephalic Neck: Supple, No JVD, Negative Carotid Bruits Lungs: Clear to auscultation, Normal air movement Cardiovascular: Regular rate, No murmurs Abdomen: Bowel Sounds Present, Soft, Non Tender Extremities: No edema, Capillary Refill Less than 3 Seconds Skin: No rashes, No breakdown Musculoskeletal: Tenderness - At fracture site tender to palpation, sensation grossly intact bilateral lower externally, active range of motion ankles bilaterally, compartment soft, will have nurse change dressing today, DP pulses intact Neurological: Cranial nerves II-XII grossly intact Psych/Mental Status: Normal Affect, Appropriate Vital Signs Temp Pulse Resp BP Pulse Ox 97.9 F 68 16 104/64 100 08/24/18 04:58 08/24/18 04:58 08/24/18 04:58 08/24/18 04:58 08/24/18 04:58 Oxygen Flow Rate (L/min) 2 Oxygen Delivery Method Nasal Cannula Weight: 158 lb 1.143 oz Body Mass Index (BMI) 26.3 Intake and Output for Last 24 Hours 08/22/18 08/23/18 08/24/18 23:59 23:59 23:59 Intake Total 2972 / 2972 1172 / 1172 Output Total 1200 / 1200 850 / 850 Balance 1772 / 1772 322 / 322 Laboratory Tests Past 24 Hrs 08/23/18 07:00 Sodium 142 Potassium 3.9 Chloride 105 Carbon Dioxide 27.0 Anion Gap 10 BUN 11 Creatinine 0.81 Estim Creat Clear Calc 56.60 Est GFR (MDRD) Af Amer 90 Est GFR (MDRD) Non-Af 74 BUN/Creatinine Ratio 13.6 Glucose 104 Calcium 7.8 L Medical Necessity - Tobacco Use Smoking Status: Former smoker Assessment/Plan All Active Problems Femur fracture, right (Acute) Fracture, femur, distal (Acute) Holly-prosthetic femoral shaft fracture (Acute) Postop day 1 status post right retrograde femoral nailing for periprosthetic distal femur fracture Ancef Heparin patient currently on heparin will transition to Lovenox discussed with nurse to talk to hospitalist about this No labs were ordered for this morning discussed with hospitalist about this as well will order CBC to check her hemoglobin Postop x-rays showed adequate alignment at fracture site Nonweightbearing right leg for at least 2 weeks until I see healing on xray Lovenox postop to start tomorrow, again this was discussed with the nurse received a dose of heparin this morning so hopefully we will transition her to Lovenox to start tomorrow morning per hospitalist for discharge planning Discharge planning Physical therapy/ occupational therapy eval This note was generated with [employer] dictation software. It may contain incorrect words, spelling, and punctuation that were not noted in checking the note before signing.
[2018-08-24 07:48] LABS: Absolute Lymphocyte Count 0.87 X10^3/ul (0.83-4.51); Basophil# 0.01 X10^3/uL; Basophil% 0.1 % (0-1); Eosinophil# 0.01 X10^3/uL; Eosinophils% 0.1 % (0-5); Hematocrit 27.6 % (37-47); Hemoglobin 8.7 g/dl (12.0-15.0); Lymphocyte # 0.87 X10^3/ul (4.0); Lymphocyte % 11.4 % (19-41); Mean Corp Hgb Conc 31.5 g/gl (32-36); Mean Corpuscular Hgb 27.4 pg (27.0-32.0); Mean Corpuscular Volume 87.1 fL (81-99); Monocyte# 0.69 X10^3/uL; Neutrophil # 6.04 X10^3/uL (2.7-7.7); Neutrophil % 79.1 % (47-70); POSITIVE COUNT NO; POSITIVE DIFFERENTIAL NO; POSITIVE MORPHOLOGY NO; Platelet Count 194 K/mm3 (150-450); RBC Distribution Width CV 12.5 % (11.6-14.6); RBC Distribution Width SD 38.7 fl (35.1-43.9); Red Blood Count 3.17 M/mm3 (4.2-5.4); White Blood Count 7.6 K/mm3 (4.4-11.0)
[2018-08-24 09:20] VITALS: BP 107/84; PULSE 69; RESP 16; TEMP 36.7; O2SAT 97
[2018-08-24] MEDS: Cyanocobalamin 500 MCG Tablet 1000 MCG PO (09:46)
[2018-08-24] MEDS: Senna Tablet 1 TABLET PO ×2 (09:47→21:21)
--- NOTE | 2018-08-24 13:09 | PCM.PN.HOSP ---
Patient Problems: Active and Suspected Problems Femur fracture, right (Acute) Fracture, femur, distal (Acute) Holly-prosthetic femoral shaft fracture (Acute) Subjective: Patient feels much relief in pain after the procedure. Feels happy. No fever, chills. Had right intramedullary nailing for distal right femur periprosthetic fracture Vitals/I&O's: Vital Signs Temp Pulse Resp BP Pulse Ox 98.1 F 69 16 107/84 H 97 08/24/18 09:20 08/24/18 09:20 08/24/18 09:20 08/24/18 09:20 08/24/18 09:20 Oxygen Flow Rate (L/min) 2 Oxygen Delivery Method Nasal Cannula Weight: 158 lb 1.143 oz Body Mass Index (BMI) 26.3 Intake and Output for Last 24 Hours 08/22/18 08/23/18 08/24/18 23:59 23:59 23:59 Intake Total 2972 / 2972 1172 / 1172 Output Total 1200 / 1200 1900 / 1900 Balance 1772 / 1772 -728 / -728 General: Alert, Oriented x3, Cooperative HEENT: Atraumatic, PERRLA, EOMI, Normocephalic Neck: Supple, No JVD, Negative Carotid Bruits Lungs: Clear to auscultation, Normal air movement, No rhonchi, No wheeze, No rales Cardiovascular: Regular rate, Normal S1, Normal S2, No murmurs Abdomen: Bowel Sounds Present, Soft, Non Tender, Non-Distended Extremities: No edema, Capillary Refill Less than 3 Seconds Skin: No rashes, No breakdown Musculoskeletal: Arthritic Changes, Tenderness - Expected postop right knee Right lower extremity in strap/brace immobility Neurological: Cranial nerves II-XII grossly intact Psych/Mental Status: Normal Affect, Appropriate Laboratory Results 08/24/18 07:35: WBC 7.6, RBC 3.17 L, Hgb 8.7 L, Hct 27.6 L, MCV 87.1, MCH 27.4, MCHC 31.5 L, RDW 12.5, RDW Differential 38.7, Plt Count 194, MPV 9.0, Immature Gran % (Auto) 0.300, Neut % (Auto) 79.1 H, Lymph % (Auto) 11.4 L, [place] % (Auto) 9.0, Eos % (Auto) 0.1, Baso % (Auto) 0.1, Absolute Neuts (auto) 6.0, Absolute Lymphs (auto) 0.87, Total Counted Not Reportable Current Medications Acetaminophen (Tylenol) 500 mg PO Q6 [facility] Last Admin: 08/24/18 11:46 Dose: 500 mg Amlodipine Besylate (Norvasc) 10 mg PO DAILY [facility] Last Admin: 08/24/18 09:48 Dose: Not Given Atorvastatin Calcium (Lipitor) 20 mg PO QHS [facility] Last Admin: 08/23/18 21:21 Dose: 20 mg Cholecalciferol (Vitamin D) 2,000 unit PO DAILY [facility] Last Admin: 08/24/18 09:46 Dose: 2,000 unit Cyanocobalamin (Vitamin B12) 1,000 mcg PO DAILY [facility] Last Admin: 08/24/18 09:46 Dose: 1,000 mcg Enoxaparin Sodium (Lovenox) 40 mg SC DAILY@0600 [facility] Heparin Sodium (Porcine) (Heparin Na) 5,000 unit SC Q8 [facility] Stop: 08/24/18 22:00 Last Admin: 08/24/18 06:04 Dose: 5,000 unit Dextrose/Sodium Chloride () 1,000 mls @ 75 mls/hr IV .[id number] [facility] Last Admin: 08/24/18 05:03 Dose: 75 mls/hr Labetalol HCl (Trandate) 10 mg IV Q4H PRN PRN PRN Reason: SBP > 160 Magnesium Hydroxide (Milk Of Magnesia) 30 ml PO DAILY PRN PRN PRN Reason: Constipation Morphine Sulfate () 1 - 2 mg IV Q4H PRN PRN PRN Reason: SEVERE PAIN (6-10/10) Last Admin: 08/23/18 06:48 Dose: 2 mg Ondansetron HCl (Zofran) 4 mg IV Q8H PRN PRN PRN Reason: NAUSEA Oxycodone HCl (Oxyir) 10 mg PO Q4H PRN PRN PRN Reason: MODERATE PAIN (4-5/10) Last Admin: 08/24/18 04:02 Dose: 10 mg Senna (Senokot) 1 tablet PO BID [facility] Last Admin: 08/24/18 09:47 Dose: 1 tablet Sodium Chloride () 5 - 30 ml IV UD PRN PRN Reason: SALINE FLUSH Zolpidem Tartrate (Ambien (Generic)) 5 mg PO QHS PRN PRN PRN Reason: INSOMNIA Medical Necessity - Tobacco Use Smoking Status: Former smoker Assessment/Plan All Active Problems Femur fracture, right (Acute) Fracture, femur, distal (Acute) Holly-prosthetic femoral shaft fracture (Acute) The patient is a 68 year old F with a significant history of hypertension, hyperlipidemia, arthritis, bilateral knee replacements who presented because of a fall and found to have radiographic evidence of acute angulated displaced fracture of the distal femoral diaphysis. Patient denies cardiac history including CHF, coronary artery disease/PR, chronic pulmonary disease or stroke. 1. Acute angulated displaced distal femoral shaft periprosthetic fracture secondary to mechanical fall X-ray reported as acute angulated displaced fracture of the distal femoral diaphysis. Postop day 1 of right retrograde intramedullary nailing Pain control with as needed oxycodone morphine and scheduled Tylenol. Bowel protocol initiated. Discontinue IV fluid Aspirin held. Vitamin D continued Vitamin D level 37. Right posterior forearm excoriation and at right medial ankle. Mupirocin dressing. Leave open Acute blood loss postoperative anemia after surgery: Patient hemoglobin dropped from 12.2-8.7. Iron sucrose 200 mg IV ordered. ferrous sulfate on discharge. Monitor H&H at night and CBC tomorrow. Hypertension Blood pressure uncontrolled at the time of admission. Currently controlled. Amlodipine continued Labetalol as needed ordered. Dyslipidemia Lipitor continued DVT prophylaxis Subcutaneous heparin and will be transitioned to Lovenox tomorrow a.m. Home medication reconciliation done. If H&H is stable, patient can be discharged to SNF. Code Visit Inpatient E&M: 62159 Subs Hosp L3
--- NOTE | 2018-08-24 13:16 | PN_ITS ---
Patient Problems: Active and Suspected Problems Femur fracture, right (Acute) Fracture, femur, distal (Acute) Holly-prosthetic femoral shaft fracture (Acute) Subjective: Patient feels much relief in pain after the procedure. Feels happy. No fever, chills. Had right intramedullary nailing for distal right femur periprosthetic fracture Vitals/I&O's: Vital Signs Temp Pulse Resp BP Pulse Ox 98.1 F 69 16 107/84 H 97 08/24/18 09:20 08/24/18 09:20 08/24/18 09:20 08/24/18 09:20 08/24/18 09:20 Oxygen Flow Rate (L/min) 2 Oxygen Delivery Method Nasal Cannula Weight: 158 lb 1.143 oz Body Mass Index (BMI) 26.3 Intake and Output for Last 24 Hours 08/22/18 08/23/18 08/24/18 23:59 23:59 23:59 Intake Total 2972 / 2972 1172 / 1172 Output Total 1200 / 1200 1900 / 1900 Balance 1772 / 1772 -728 / -728 General: Alert, Oriented x3, Cooperative HEENT: Atraumatic, PERRLA, EOMI, Normocephalic Neck: Supple, No JVD, Negative Carotid Bruits Lungs: Clear to auscultation, Normal air movement, No rhonchi, No wheeze, No rales Cardiovascular: Regular rate, Normal S1, Normal S2, No murmurs Abdomen: Bowel Sounds Present, Soft, Non Tender, Non-Distended Extremities: No edema, Capillary Refill Less than 3 Seconds Skin: No rashes, No breakdown Musculoskeletal: Arthritic Changes, Tenderness - Expected postop right knee Right lower extremity in strap/brace immobility Neurological: Cranial nerves II-XII grossly intact Psych/Mental Status: Normal Affect, Appropriate Laboratory Results 08/24/18 07:35: WBC 7.6, RBC 3.17 L, Hgb 8.7 L, Hct 27.6 L, MCV 87.1, MCH 27.4, MCHC 31.5 L, RDW 12.5, RDW Differential 38.7, Plt Count 194, MPV 9.0, Immature Gran % (Auto) 0.300, Neut % (Auto) 79.1 H, Lymph % (Auto) 11.4 L, [place] % (Auto) 9.0, Eos % (Auto) 0.1, Baso % (Auto) 0.1, Absolute Neuts (auto) 6.0, Absolute Lymphs (auto) 0.87, Total Counted Not Reportable Current Medications Acetaminophen (Tylenol) 500 mg PO Q6 [facility] Last Admin: 08/24/18 11:46 Dose: 500 mg Amlodipine Besylate (Norvasc) 10 mg PO DAILY [facility] Last Admin: 08/24/18 09:48 Dose: Not Given Atorvastatin Calcium (Lipitor) 20 mg PO QHS [facility] Last Admin: 08/23/18 21:21 Dose: 20 mg Cholecalciferol (Vitamin D) 2,000 unit PO DAILY [facility] Last Admin: 08/24/18 09:46 Dose: 2,000 unit Cyanocobalamin (Vitamin B12) 1,000 mcg PO DAILY [facility] Last Admin: 08/24/18 09:46 Dose: 1,000 mcg Enoxaparin Sodium (Lovenox) 40 mg SC DAILY@0600 [facility] Heparin Sodium (Porcine) (Heparin Na) 5,000 unit SC Q8 [facility] Stop: 08/24/18 22:00 Last Admin: 08/24/18 06:04 Dose: 5,000 unit Dextrose/Sodium Chloride () 1,000 mls @ 75 mls/hr IV .[id number] [facility] Last Admin: 08/24/18 05:03 Dose: 75 mls/hr Labetalol HCl (Trandate) 10 mg IV Q4H PRN PRN PRN Reason: SBP > 160 Magnesium Hydroxide (Milk Of Magnesia) 30 ml PO DAILY PRN PRN PRN Reason: Constipation Morphine Sulfate () 1 - 2 mg IV Q4H PRN PRN PRN Reason: SEVERE PAIN (6-10/10) Last Admin: 08/23/18 06:48 Dose: 2 mg Ondansetron HCl (Zofran) 4 mg IV Q8H PRN PRN PRN Reason: NAUSEA Oxycodone HCl (Oxyir) 10 mg PO Q4H PRN PRN PRN Reason: MODERATE PAIN (4-5/10) Last Admin: 08/24/18 04:02 Dose: 10 mg Senna (Senokot) 1 tablet PO BID [facility] Last Admin: 08/24/18 09:47 Dose: 1 tablet Sodium Chloride () 5 - 30 ml IV UD PRN PRN Reason: SALINE FLUSH Zolpidem Tartrate (Ambien (Generic)) 5 mg PO QHS PRN PRN PRN Reason: INSOMNIA Medical Necessity - Tobacco Use Smoking Status: Former smoker Assessment/Plan All Active Problems Femur fracture, right (Acute) Fracture, femur, distal (Acute) Holly-prosthetic femoral shaft fracture (Acute) The patient is a 68 year old F with a significant history of hypertension, hyperlipidemia, arthritis, bilateral knee replacements who presented because of a fall and found to have radiographic evidence of acute angulated displaced fracture of the distal femoral diaphysis. Patient denies cardiac history including CHF, coronary artery disease/CO, chronic pulmonary disease or stroke. 1. Acute angulated displaced distal femoral shaft periprosthetic fracture secondary to mechanical fall X-ray reported as acute angulated displaced fracture of the distal femoral diaphysis. Postop day 1 of right retrograde intramedullary nailing Pain control with as needed oxycodone morphine and scheduled Tylenol. Bowel protocol initiated. Discontinue IV fluid Aspirin held. Vitamin D continued Vitamin D level 37. Right posterior forearm excoriation and at right medial ankle. Mupirocin dressing. Leave open Acute blood loss postoperative anemia after surgery: Patient hemoglobin dropped from 12.2-8.7. Iron sucrose 200 mg IV ordered. ferrous sulfate on discharge. Monitor H&H at night and CBC tomorrow. Hypertension Blood pressure uncontrolled at the time of admission. Currently controlled. Amlodipine continued Labetalol as needed ordered. Dyslipidemia Lipitor continued DVT prophylaxis Subcutaneous heparin and will be transitioned to Lovenox tomorrow a.m. Home medication reconciliation done. If H&H is stable, patient can be discharged to SNF. Code Visit Inpatient E&M: 26002 Subs Hosp L3
[2018-08-24 13:50] VITALS: BP 113/74; PULSE 62; RESP 16; TEMP 36.9; O2SAT 97
[2018-08-24 20:35] LABS: Hematocrit 26.7 % (37-47); Hemoglobin 8.4 g/dl (12.0-15.0)
[2018-08-24 20:57] VITALS: BP 124/65; PULSE 97; RESP 18; TEMP 37.3; O2SAT 95
[2018-08-24] MEDS: Atorvastatin Calcium 20 MG Tablet PO (21:21)
[2018-08-24] MEDS: Morphine 2 MG/ML Syringe IV (23:11)
[2018-08-24] MEDS: 0.9% NaCl Peripheral Flush Adult/Peds IV (23:11)
[2018-08-25 03:58] VITALS: BP 105/62; PULSE 79; RESP 18; TEMP 36.9; O2SAT 95
[2018-08-25] MEDS: Acetaminophen 500 MG Tablet PO ×2 (05:48→12:26)
[2018-08-25] MEDS: Enoxaparin 40 MG/0.4 ML Syringe SC (05:48)
[2018-08-25 06:54] VITALS: O2SAT 90
[2018-08-25 06:56] LABS: Absolute Lymphocyte Count 1.47 X10^3/ul (0.83-4.51); Absolute Neutrophil Count 3.8 X10^3/uL (2.0-7.7); Basophil# 0.02 X10^3/uL; Basophil% 0.3 % (0-1); Eosinophil# 0.22 X10^3/uL; Eosinophils% 3.6 % (0-5); Hematocrit 26.1 % (37-47); Hemoglobin 8.1 g/dl (12.0-15.0); Lymphocyte # 1.47 X10^3/ul (4.0); Lymphocyte % 23.9 % (19-41); Mean Corpuscular Hgb 27.3 pg (27.0-32.0); Mean Corpuscular Volume 87.9 fL (81-99); Mean Platelet Vol. 9.5 fl (6.2-12.0); Monocyte# 0.57 X10^3/uL; Monocyte% 9.3 % (0-10); Neutrophil # 3.81 X10^3/uL (2.7-7.7); Neutrophil % 62.1 % (47-70); Platelet Count 205 K/mm3 (150-450); RBC Distribution Width CV 12.5 % (11.6-14.6); RBC Distribution Width SD 38.8 fl (35.1-43.9); Red Blood Count 2.97 M/mm3 (4.2-5.4); White Blood Count 6.1 K/mm3 (4.4-11.0)
[2018-08-25 07:04] LABS: POSITIVE COUNT NO; POSITIVE DIFFERENTIAL NO; POSITIVE MORPHOLOGY NO
[2018-08-25 07:11] LABS: Anion Gap 7 (5-15); BUN 8 mg/dL (7-18); BUN/Creat Ratio 11.8 RATIO (10-20); Calcium,Total 7.9 mg/dL (8.5-10.1); Chloride 107 mmol/L (98-107); Creatinine, Serum 0.68 mg/dL (0.55-1.02); EST Glomerular Filtration Rate 91 mL/min (>60); Est Glom Filt Rate - Afr Amer 110 mL/min (>60); Estimated Creatinine Clearance 45.85 ml/min; Glucose 98 mg/dL (74-106); Potassium 3.6 mmol/L (3.5-5.1); Sodium Level 142 mmol/L (136-145)
--- NOTE | 2018-08-25 08:59 | PCM.TXEXTCAR ---
- Diet 08/23/18 23:13 Diet: Cardiac/Low Cholesterol Is pt able to select menu?: Yes - Routine Orders/Code Status Code Status: Full Code - Wound(s) R. FA Wound Type: Abrasion right knee Wound Type: Surgical Incision Dressing Change: christopher - Therapies Weight Bearing: Non weight bearing Physical Therapy: Eval and Treat Occupational Therapy: Eval and Treat - Allergies/Procedures Done in Hospital Allergies/Adverse Reactions: Allergies meloxicam Allergy (Verified 08/22/18 18:15) Itching Sulfa (Sulfonamide Antibiotics) Allergy (Verified 08/22/18 18:15) Swelling - Type of Care/Length of Stay Estimated LOS: Convalescent Care Less Than 30 days Type of Care Needed: Skilled Rehab Potential: Good Prognosis: Good - Additional Orders/Day of Discharge Day of Discharge: 08/25/18 - Follow Up Care Primary Care Physician: Hany Morley,Out of [NON-STAFF] - Please Follow Up With: Solange Martines DO When: in 1-2 weeks
--- NOTE | 2018-08-25 09:01 | PCM.DC.SUM ---
Discharge Date and Diagnosis - Problem List Patient Problems: Active and Suspected Problems Femur fracture, right (Acute) Fracture, femur, distal (Acute) Holly-prosthetic femoral shaft fracture (Acute) Date of Admission: 08/22/18 Date of Discharge: 08/25/18 - Primary Discharge Diagnosis Active and Suspected Problems Femur fracture, right (Acute) Fracture, femur, distal (Acute) Holly-prosthetic femoral shaft fracture (Acute) - Secondary Discharge Diagnosis Chronic Problems HTN (hypertension) (Chronic) Hospital Course and Treatment Imaging Results: Clinical Impression(s) from Imaging Studies Knee X-Ray 08/22/18 18:45 IMPRESSION: 1. Acute angulated displaced fracture of distal femoral diaphysis. 2. Osteoporosis. 3. Status post total right knee arthroplasty. Electronically Signed: Faith Garay MD at 19:34 EDT , Service support , Femur X-Ray 08/23/18 13:42 IMPRESSION: Intraoperative digital documentation images of intramedullary bob placement without complications. Electronically Signed: Alex Lyons MD at 16:05 EDT , Service support , Femur X-Ray 08/23/18 13:45 IMPRESSION: Osteopenia with postsurgical changes as described. Electronically Signed: Alex Lyons MD at 21:07 EDT , Service support , Summary of Care Provided: The patient is a 68 year old F resented following a fall imaging studies demonstrated acute angulated displaced fracture of the distal femoral diaphysis. 1. Acute angulated displaced distal femoral shaft periprosthetic fracture secondary to mechanical fall. Patient was admitted to regular nursing floor consultation was placed to Dr. Quintero with orthopedic surgery who did perform right retrograde intramedullary nailing she was transferred to the inpatient rehab unit 2. Anemia secondary to acute blood loss anemia following patient distal femur fracture as well as surgery. Patient did receive adjuvant was discharged on oral iron supplementation 3. Dyslipidemia-patient is on statin therapy, continued at home dose 4. Hypertension-blood pressure controlled, home medications continued with dose adjustment as needed 5. DVT prophylaxis; Lovenox Discharge Diet: No Restrictions Home Medications: Medications to take at Discharge Acetaminophen 500 mg PO TID PRN PRN 08/22/18 Amlodipine [Norvasc] 10 mg PO DAILY 08/22/18 Aspirin 81 mg PO DAILY 08/22/18 Atorvastatin Calcium [Lipitor] 20 mg PO QHS 08/22/18 Cholecalciferol (Vitamin D3) [Vitamin D3] 2,000 unit PO DAILY 08/22/18 Cyanocobalamin (Vitamin B-12) [Vitamin B-12] 1,000 mcg PO DAILY 08/22/18 Enoxaparin [Lovenox] 40 mg SUBCUT DAILY@0600 #20 syringe 08/25/18 Iron Poly/Vit C [Niferex-150] 150 mg PO DAILYCM #60 cap 08/25/18 Magnesium Hydroxide [Milk Of Magnesia] 30 ml PO DAILY PRN PRN #30 udc 08/25/18 Oxycodone [Oxyir] 5 mg PO Q4H PRN PRN 5 Days #20 tab 08/25/18 Senna [Senokot] 1 tab PO BID #60 tab 08/25/18 Following Prescrptions Were Given to Patient: Enoxaparin [Lovenox] 40 mg SUBCUT DAILY@0600 #20 syringe Iron Poly/Vit C [Niferex-150] 150 mg PO DAILYCM #60 cap Magnesium Hydroxide [Milk Of Magnesia] 30 ml PO DAILY PRN PRN #30 udc PRN Reason: Constipation Oxycodone [Oxyir] 5 mg PO Q4H PRN PRN 5 Days #20 tab PRN Reason: Moderate Pain (4-5/10) Senna [Senokot] 1 tab PO BID #60 tab Primary Care Physician: [facility] Doctor,Out of [NON-STAFF] - Please Follow Up With: Solange Martines DO When: in 1-2 weeks Disposition: Inpt Rehab Unit/Facility Minutes spent on discharge:: 35 Patient Condition:: Stable Medical Necessity - Tobacco Use Smoking Status: Former smoker Meaningful Use Info Meaningful Use Diagnoses (Choose all that apply): None applicable Code Visit Inpatient E&M: 60468 Disch Hosp - Physical Exam General: Oriented x3 HEENT: Atraumatic Lungs: Clear to auscultation Neurological: Neuro grossly intact Psych/Mental Status: Normal Affect Vital Signs Temp Pulse Resp BP Pulse Ox 98.4 F 79 18 105/62 90 08/25/18 03:58 08/25/18 03:58 08/25/18 03:58 08/25/18 03:58 08/25/18 06:54 Oxygen Flow Rate (L/min) 2 Oxygen Delivery Method Room Air Weight: 71.7 kg Body Mass Index (BMI) 26.3 Intake and Output for Last 24 Hours 08/23/18 08/24/18 08/25/18 23:59 23:59 23:59 Intake Total 2972 / 2972 4235 / 4235 893 / 893 Output Total 1200 / 1200 2500 / 2500 600 / 600 Balance 1772 / 1772 1735 / 1735 293 / 293 Laboratory Tests Past 24 Hrs 08/24/18 08/25/18 08/25/18 19:54 06:07 06:07 WBC 6.1 RBC 2.97 L Hgb 8.4 L 8.1 L Hct 26.7 L 26.1 L MCV 87.9 MCH 27.3 MCHC 31.0 L RDW 12.5 RDW Differential 38.8 Plt Count 205 MPV 9.5 Immature Gran % (Auto) 0.800 Neut % (Auto) 62.1 Lymph % (Auto) 23.9 [place] % (Auto) 9.3 Eos % (Auto) 3.6 Baso % (Auto) 0.3 Absolute Neuts (auto) 3.8 Absolute Lymphs (auto) 1.47 Total Counted Not Reportable Sodium 142 Potassium 3.6 Chloride 107 Carbon Dioxide 28.0 Anion Gap 7 BUN 8 Creatinine 0.68 Estim Creat Clear Calc 45.85 Est GFR (MDRD) Af Amer 110 Est GFR (MDRD) Non-Af 91 BUN/Creatinine Ratio 11.8 Glucose 98 Calcium 7.9 L
[2018-08-25] MEDS: amLODIPine 10 MG Tablet PO (09:12)
[2018-08-25] MEDS: Cyanocobalamin 500 MCG Tablet 1000 MCG PO (09:13)
[2018-08-25] MEDS: Senna Tablet 1 TABLET PO (09:14)
[2018-08-25 09:46] VITALS: BP 123/71; PULSE 74; RESP 14; TEMP 36.9; O2SAT 97
[2018-08-25 09:50] VITALS: PULSE 74; RESP 14; O2SAT 97
--- NOTE | 2018-08-25 11:09 | NURSING ---
Assisted pt with bed bath and changed linens. Pt resting comfortably in bed. side rails up X2, call light in reach. No further requests at this time.
--- NOTE | 2018-08-25 11:15 | CASEMGMT ---
Social Work Note Per physician pt is interested in TCU. CHANEL placed a call to [facility] in TCU who states she doesn't currently have any beds. SW in to update pt of this. Pt states that she would really like to stay at [facility] for rehab. CHANEL explained RU to pt but that this worker is unsure if pt will qualify but can make referral. Pt stated understanding and is agreeable to referral being sent to . SW explained that it would be beneficial to have another choice for SNF in the even [facility] is unable to accept. CHANEL provided pt with list of SNF in area and Medicare ratings. Pt states that she will talk to her daughter and then let this worker know about SNF. CHANEL placed a call to referral line and asked if pt would be appropriate for [facility]. Per Trina she will check with Dr. Hoffman and give this worker a call back. CHANEL received call from [facility] who states Dr. Post is able to accept pt on RU. CHANEL updated pt and pt's daughter was present in room that is able to accept pt. Pt states understanding. CHANEL updated physician that pt will be going to at discharge. Plan: Discharge to today Porsha Neal GUEST SERVICE AIDE, ESTATE PLANNING COUNSELOR
--- NOTE | 2018-08-25 11:32 | PCM.DC ---
- Discharge Diagnoses Current Active Problems: Current Active and Chronic Problems Femur fracture, right (Acute) HTN (hypertension) (Chronic) Fracture, femur, distal (Acute) Holly-prosthetic femoral shaft fracture (Acute) You will use the following diet at home:: No restrictions Allergies/Adverse Reactions: Allergies meloxicam Allergy (Verified 08/22/18 18:15) Itching Sulfa (Sulfonamide Antibiotics) Allergy (Verified 08/22/18 18:15) Swelling Medications to take at Discharge Acetaminophen 500 mg PO TID PRN PRN 08/22/18 Amlodipine [Norvasc] 10 mg PO DAILY 08/22/18 Aspirin 81 mg PO DAILY 08/22/18 Atorvastatin Calcium [Lipitor] 20 mg PO QHS 08/22/18 Cholecalciferol (Vitamin D3) [Vitamin D3] 2,000 unit PO DAILY 08/22/18 Cyanocobalamin (Vitamin B-12) [Vitamin B-12] 1,000 mcg PO DAILY 08/22/18 Enoxaparin [Lovenox] 40 mg SUBCUT DAILY@0600 #20 syringe 08/25/18 Iron Poly/Vit C [Niferex-150] 150 mg PO DAILYCM #60 cap 08/25/18 Magnesium Hydroxide [Milk Of Magnesia] 30 ml PO DAILY PRN PRN #30 udc 08/25/18 Oxycodone [Oxyir] 5 mg PO Q4H PRN PRN 5 Days #20 tab 08/25/18 Senna [Senokot] 1 tab PO BID #60 tab 08/25/18 The following prescriptions were given: Enoxaparin [Lovenox] 40 mg SUBCUT DAILY@0600 #20 syringe Iron Poly/Vit C [Niferex-150] 150 mg PO DAILYCM #60 cap Magnesium Hydroxide [Milk Of Magnesia] 30 ml PO DAILY PRN PRN #30 udc PRN Reason: Constipation Oxycodone [Oxyir] 5 mg PO Q4H PRN PRN 5 Days #20 tab PRN Reason: Moderate Pain (4-5/10) Senna [Senokot] 1 tab PO BID #60 tab Primary Care Physician: [facility] Doctor,Out of [NON-STAFF] - Test Results: Test results from this visit will be discussed in further detail at your follow-up appointment, if applicable. Please Follow Up With: Solange Martines DO When: in 1-2 weeks Proposed Discharge Date: 08/25/18
[2018-08-25] MEDS: Bisacodyl 10 MG Suppository RECTAL (11:54)
[2018-08-25 12:19] VITALS: BP 120/69; PULSE 82; RESP 14; TEMP 36.6; O2SAT 96
[2018-08-25 12:32] VITALS: PULSE 82; RESP 14; O2SAT 96
--- NOTE | 2018-08-25 14:08 | NURSING ---
report given to Jacquelyn MCQUEEN on RU
[2018-08-25] MEDS: oxyCODONE 5 MG Tablet 10 MG PO (14:30)
== END 2018-08-25 14:40 | DRG 481 ==
LOC: ED 19:31 → MS3 19:45
PROVIDERS: Internal Medicine; Orthopaedic Surgery; Admitting Provider Hospitalist; Emergency Provider Emergency Medicine; Referring Provider Hospitalist; Visit Provider Internal Medicine
PROC: 0QS836Z Reposition Right Femoral Shaft with Intramedullary Internal Fixation Device, Percutaneous Approach (ICD-10-PCS; principal; 2018-08-23 13:30)
DX: S72.301A Unspecified fracture of shaft of right femur, initial encounter for closed fracture (principal); M97.11XA Periprosthetic fracture around internal prosthetic right knee joint, initial encounter; D62 Acute posthemorrhagic anemia; E78.5 Hyperlipidemia, unspecified; I10 Essential (primary) hypertension; W01.0XXA Fall on same level from slipping, tripping and stumbling without subsequent striking against object, initial encounter; Y92.018 Other place in single-family (private) house as the place of occurrence of the external cause; Z96.653 Presence of artificial knee joint, bilateral; Z87.891 Personal history of nicotine dependence
CPT/HCPCS: 36415; 73552; 73560; 76000; 80048; 82306; 85014; 85018; 85025; 85610; 88305; 88307; 88311; 94762; 97162; 97166; 97530; 99283; C1713; J1756; J7030; A4216; J2405; J7799

== ENCOUNTER 2018-08-25 15:00 | Inpatient (IN) | payer MEDICARE, MEDICAID, SELFPAY ==
[2018-08-25 15:13] VITALS: BP 131/82; PULSE 94; RESP 18; TEMP 36.7; O2SAT 95; BMI 27.3; BMI 28.1
--- NOTE | 2018-08-25 15:17 | HP.PCM.COS_ITS ---
History of Present Illness Date of Admission: 08/25/18 Chief Complaint: Right Femoral Fracture The patient is a 68 year old Female who is admitted to the rehab unit for rehabilitation after suffering a mechanical fall on her back deck. She has a pass medical history of HTN, HLD, Arthritis. According to the patient the deck was slightly wet, and at the time she was wearing flip flops, when she slipped trapping her right leg behind her. An X-ray showed an acute angulated displaced fracture of the distal femoral diaphysis. She was taken to the OR by Dr. Martines on where a right retrograde femoral nailing for periprosthetic distal femur fracture was preformed with out complications. Patient received Ancef postop for 24 hours, she is Non-weightbearing with brace at all time to the right leg for at least 2 weeks until cleared by Dr. Martines. She also sustained a bruise at her right posterior forearm; and a small wound at the right medial ankle. She lives alone, in an apartment, in [place]. The plan is for her to go home with her youngest daughter would lives here in [place], until she is ready to return home. She was previously completely functionally independent and is admitted to the rehab unit in order to restore her previous level of functional independence. Past Medical History Past Medical History (Chronic Problems): Chronic Problems HTN (hypertension) (Chronic) Allergies meloxicam Allergy (Verified 08/22/18 18:15) Itching Sulfa (Sulfonamide Antibiotics) Allergy (Verified 08/22/18 18:15) Swelling Home Medications: Ambulatory Orders Medication Instructions Recorded Acetaminophen 500 mg PO TID 08/22/18 Amlodipine [Norvasc] 10 mg PO DAILY 08/22/18 Aspirin 81 mg PO DAILY 08/22/18 Atorvastatin Calcium [Lipitor] 20 mg PO QHS 08/22/18 Cholecalciferol (Vitamin D3) 2,000 unit PO DAILY 08/22/18 [Vitamin D3] Cyanocobalamin (Vitamin B-12) 1,000 mcg PO DAILY 08/22/18 [Vitamin B-12] Enoxaparin [Lovenox] 40 mg SC DAILY@0600 08/25/18 Iron Poly/Vit C [Niferex-150] 150 mg PO DAILYCM 08/25/18 Oxycodone [Oxyir] 5 mg PO Q4H PRN PRN 5 Days #20 tab 10/08/18 Surgical History: total knee arthroplasty - bilateral, - - Surgery on fourth fi nger of left hand. Bilateral foot surgery. Tubal Ligation Lives: Alone - In an apartment on the ground floor. Daughter lives in an apartment above her. Smoking Status: Former smoker Alcohol: Occasional Drugs: Marijuana Review of Systems Constitutional: Denies: Chills, Fever, Weight Change HEENT: Denies: Head Aches, Sinus Congestion, Sinus Drainage Cardiovascular: Denies: Chest Pain, Palpitations Respiratory: Denies: Cough, Shortness of breath at rest, Sputum production Gastrointestinal: Denies: Abdominal Pain, Nausea, Vomiting Genitourinary: Denies: Dysuria Musculoskeletal: Denies: Joint Pain, Joint Tenderness Skin: Denies: Rash, Wounds Neurological: Denies: Numbness, Tingling, Focal weakness Psychiatric: Denies: Anxiety, Depression, Homicidal Ideations, Suicidal Ideations Hematologic/ Lymphatic: Denies: Easy Bruising, Easy Bleeding VTE Information - Inpt Only VTE Present on Admission: No VTE Mechan Device Prophylaxis: SCD's - Left leg only, Knee High RENE Hose - Left leg only VTE Pharm Prophylaxis ordered?: Yes - Physical Exam General: Alert, Oriented x3, Cooperative HEENT: Atraumatic, PERRLA, EOMI, Normocephalic Neck: Supple, No JVD, Negative Carotid Bruits Lungs: Clear to auscultation, Normal air movement Cardiovascular: Regular rate, No murmurs Abdomen: Bowel Sounds Present, Soft, Non Tender Extremities: No edema, Capillary Refill Less than 3 Seconds Skin: No rashes, No breakdown Musculoskeletal: No Tenderness to Palpation of Joints or Extremities Neurological: Cranial nerves II-XII grossly intact Psych/Mental Status: Normal Affect, Appropriate, Alert and oriented to time, place, person, mood and affect Assessment/Plan All Active Problems Femur fracture, right (Acute) Fracture, femur, distal (Acute) Holly-prosthetic femoral shaft fracture (Acute) Debility s/p right retrograde intramedullary nailing of an angulated displaced distal femoral shaft periprosthetic fracture. Complicated by HTN, and acute blood loss anemia. Goal of rehab is jainism of functional independence. Plan: - Physical therapy for gait and balance - Occupational Therapy for ADLs - Weight bearing status is Non-weight bearing with brace at all time for next two weeks, will be reassessed by Dr. Martines for new weight bearing status at that time. Obtain X-Rays of right femur prior to appointment. - As needed analgesics - Bowel protocol - Incision wound -> right retrograde intramedullary nailing of an angulated displaced distal femoral shaft periprosthetic fracture - Anemia 2/2 acute blood loss anemia following distal femur fracture and surgery. Patient did receive parenteral iron transfusion; discharged on oral iron - HX of HLD - Continue home dose of Statin - Hx of HTN - BP well controlled on home medications - DVT prophylaxis - Lovenox, SCDs,and Rene hoses on the Left only. - Fall Precautions
--- NOTE | 2018-08-25 15:32 | PCM.PN.HOSP ---
Subjective: The patient is a 68 year old F resented following a fall imaging studies demonstrated acute angulated displaced fracture of the distal femoral diaphysis. Objective: GENERAL: cooperative HEENT: Atraumatic; moist oral mucosa EYES; Anicteric, Normal Conjunctiva NECK; supple, normal thyroid, no distended JVD. RESPIRATORY: Diminished to auscultation bilaterally, CARDIOVASCULAR: Regular S1 S2, no audible murmurs GI: soft, non-tender, normoactive bowel sounds, : No Renal angle tenderness; No hernandez EXTREMITIES: No edema, no clubbing, no cyanosis. MUSCULOSKELETAL: No Joint Tenderness; no muscle waisting NEURO: Awake; no lateralizing signs. SKIN: No Rash PSYCH; Normal affect Medical Necessity - Tobacco Use Smoking Status: Former smoker Assessment/Plan All Active Problems Femur fracture, right (Acute) Fracture, femur, distal (Acute) Holly-prosthetic femoral shaft fracture (Acute) The patient is a 68 year old F resented following a fall imaging studies demonstrated acute angulated displaced fracture of the distal femoral diaphysis. 1. Acute angulated displaced distal femoral shaft periprosthetic fracture secondary to mechanical fall. Patient underwent right retrograde intramedullary nailing by Dr. Martines and subsequently transferred to the inpatient rehab unit 2. Anemia secondary to acute blood loss anemia following patient distal femur fracture as well as surgery. Patient did receive parenteral iron transfusion; discharged on oral iron 3. Dyslipidemia-patient is on statin therapy, continued at home dose 4. Hypertension-blood pressure controlled, home medications continued with dose adjustment as needed 5. DVT prophylaxis; Lovenox
--- NOTE | 2018-08-25 16:03 | PCM.PN.ORT ---
Subjective: Patient is being seen today at 12:50PM for post-op progress noted following repair of displaced right distal femur fracture with retrograde femoral nail fixation. Patient states that she is doing excellent at this time having minimal to no pains at this time. She states that she has been able to get up and use the restroom without much problem. She denies constipation at this time. She also denies shortness of breath (admits to using her incentive spirometer as directed), leg swelling, or calf tenderness. She states that she had minimal discharge on the dressing that was just recently changed. - Physical Exam General: Alert, Oriented x3, Cooperative - patient answered questions and commands appropriately, No apparent distress Lungs: Normal air movement Extremities: No edema, No Calf Tenderness Skin: No rashes, No breakdown, Incision - Three separate incision sites were found and inspected. The proximal incision site showed indwelling yancy within the incision. There was good approximation without any erythema, swelling, or discharge. The distal incisions on the knee (one larger directly anterior and a smaller on lateral knee) area had overlying xeroform gauze still in place. there was good approximation of these wound edges and no evidence of swelling, erythema, or discharge. Musculoskeletal: Tenderness - She has some minor tenderness on the lateral hip near proximal incision as well as some on the distal femur. Psych/Mental Status: Normal Affect, Appropriate Vital Signs Temp Pulse Resp BP Pulse Ox 98.0 F 94 18 131/82 H 95 08/25/18 15:13 08/25/18 15:13 08/25/18 15:13 08/25/18 15:13 08/25/18 15:13 Oxygen Delivery Method Room Air Weight: 168 lb 12.8 oz Body Mass Index (BMI) 28.0 Medical Necessity - Tobacco Use Smoking Status: Former smoker Assessment/Plan All Active Problems Femur fracture, right (Acute) Fracture, femur, distal (Acute) Holly-prosthetic femoral shaft fracture (Acute) Patient is doing very well status post displaced distal femur fracture repair with retrograde nail fixation. Patients pains are very well controlled at this time and she has no changes at her incision sites to indicate infection. She is to continue to be non weight-bearing and is to wear her brace at all times until she has a f/u in 2 weeks to X-ray the hip in order to see some evidence of healing with callus formation. She is to follow her physical therapy guided rehabilitation at this time. She is to monitor and notify of calf pains, shortness of breath, increase in pains, changes about the incision sites (redness, swelling, or discharge) or any falls or injury.
--- NOTE | 2018-08-25 16:41 | PCM.RU.PYE ---
Admission Information Status Changes from Prescreening?: No changes Identified Actual Problem List:: Falls, Mobility Impaired, Self Care Deficit, BP, Hypertension Potential Problem List:: DVT, Bleeding, Infection, UTI, Aspiration, Falls, Skin Integrity, Depression Risk of Complications DVT: LMWH, ELIECER Hose, Sequential Compression Device Bleeding: Monitor Lab Values, Nursing to Teach Precautions for anti-coagulation therapy., Wound, if applicable, to be assessed every shift., Stroke patients assessed for lethargy or change in status. Infection: Clinical Staff to Monitor for S/S of infection:, S/S of infection include fever, redness, warmth, etc. Urinary Tract Infection: Monitor for frequency, burning, discomfort, or incontinence., Nursing will obtain urine sample for urinalysis and C&S when ordered. Aspiration: Clinical staff will monitor for coughing, drooling, congestion., Speech will evaluate swallowing and dsyphasia., Nursing will monitor patient swallowing during meals. Falls: Patient will be evaluated for Fall Precautions, Patient will be placed on Fall Precautions as indicated per protocol. Skin Breakdown: Nursing will assess skin daily using assessment tool., Nursing will place on Skin Breakdown Precautions as indicated. Pain: Clinical staff will assess patient's pain level per protocol., Medications will be given, if needed, and the pain level reassessed., Other methods: Massage, distraction, decrease stimulus, etc. used PRN. Plan of Care Patient requires physician specializing in physical medicine and rehab oversight to provide close medical supervision of rehab issues including: Pain Management, Sleep Problems, Bowel and Bladder, Medical and co-morbidity Management, DVT prophylaxis, Rehabilitation Leadership, Coordination of treatment team Patient needs Physical Therapy: For a minimum of 1 hour, At least 5 out of 7 days Patient needs Physical Therapy to improve:: Mobility, Mobility, Mobility, Strengthening, Transfers, Stretching, ROM, Endurance, Stairs, Gait, Balance Patient needs Occupational Therapy: For a minimum of 1 hour, At least 5 out of 7 days Patient needs Occupational Therapy to improve ADL's incl.: Eating, Grooming, Bathing, Dressing, Toileting, Toilet transfers, Community Reintegration, Higher functioning activities, Household tasks, Adaptive Equipment, Splinting, Other activities as determined Patient requires 24/ Rehabilitation Nursing for: Pain Issues, Identifying and preventing risk factors, Monitoring and reporting current medical conditions, Assisting with ambulation, transfer, and all ADL's, Teaching patients about disease process and medications, Family teaching, Providing safe environment, Bowel and Bladder Issues, Skin integrity, Medication Management Patient needs Air And Water Filler/ Case Management for: Discharge Planning, Arranging Home Equipment or Services, Family Interventions Patient needs Dietary and Nutrition Services for: Adequate Nutrition, Nutritional Supplements, Nutritional Education Goals Patient will remain: free from falls, or injury at time of discharge. Patient will perform bed mobility at: MOD I level of assist. Patient will complete transfers from bed to chair at: MOD I level of assist. Patient will ambulate: 100 feet, with MOD I assist, with LRD Patient will complete upper body dressing at: MOD I level of assist. Patient will complete lower body dressing at: MOD I level of assist. Patient will complete toileting at: MOD I level of assist. Patient will perform bathing at: MOD I level of assist. Patient will complete grooming at: MOD I level of assist. Patient will complete home management skills at: MOD I level of assist. Patient will achieve: 12 stairs, at MOD I assist Patient will have pain level of: of 3 or less Patient's skin will: remain intact, free from infection. Patient will receive: adequate nutrition. Discharge Planning Pt Prognosis for Sig. Practical Improv. w/in Reasonable Time: Good Estimated Length of stay (days): 16 Anticipated D/C Destination: Home with Outpt Therapy Was Preadmission Assessment Accurate?: Yes
[2018-08-25] MEDS: Ascorbic Acid 500 MG Tablet 250 MG PO (18:04)
[2018-08-25] MEDS: Iron Polysaccharide Complex 150 MG CAPSULE PO (18:05)
[2018-08-25 19:20] VITALS: O2SAT 98
[2018-08-25 19:53] VITALS: BP 124/66; PULSE 91; RESP 16; TEMP 36.8; O2SAT 98
[2018-08-25] MEDS: Atorvastatin Calcium 20 MG Tablet PO (21:01)
[2018-08-25] MEDS: Acetaminophen 500 MG Tablet PO (21:01)
[2018-08-25] MEDS: Senna/Docusate Sodium 1 Tablet 2 TABLET PO (21:01)
[2018-08-26] MEDS: Enoxaparin 40 MG/0.4 ML Syringe SC (05:02)
[2018-08-26] MEDS: Acetaminophen 500 MG Tablet PO ×3 (05:02→21:31)
[2018-08-26 05:51] LABS: Absolute Lymphocyte Count 1.37 X10^3/ul (0.83-4.51); Absolute Neutrophil Count 2.9 X10^3/uL (2.0-7.7); Basophil# 0.01 X10^3/uL; Basophil% 0.2 % (0-1); Eosinophil# 0.31 X10^3/uL; Eosinophils% 6.1 % (0-5); Hematocrit 29.1 % (37-47); Hemoglobin 9.1 g/dl (12.0-15.0); Lymphocyte # 1.37 X10^3/ul (4.0); Mean Corp Hgb Conc 31.3 g/gl (32-36); Mean Corpuscular Hgb 27.3 pg (27.0-32.0); Mean Corpuscular Volume 87.4 fL (81-99); Mean Platelet Vol. 9.3 fl (6.2-12.0); Monocyte% 7.9 % (0-10); Neutrophil # 2.92 X10^3/uL (2.7-7.7); Neutrophil % 57.6 % (47-70); Platelet Count 273 K/mm3 (150-450); RBC Distribution Width CV 12.7 % (11.6-14.6); RBC Distribution Width SD 39.5 fl (35.1-43.9); Red Blood Count 3.33 M/mm3 (4.2-5.4); White Blood Count 5.1 K/mm3 (4.4-11.0)
[2018-08-26 05:58] LABS: POSITIVE COUNT NO; POSITIVE DIFFERENTIAL NO; POSITIVE MORPHOLOGY NO
[2018-08-26 06:01] LABS: ALB/GLOB Ratio 0.8 RATIO (0.9-2.4); AST(SGOT) 14 U/L (15-37); Alanine Aminotransfer ALT/SGPT 15 U/L (13-56); Albumin, Serum 2.7 g/dL (3.2-5.0); Alkaline Phosphatase 78 U/L (45-117); Anion Gap 9 (5-15); BUN 7 mg/dL (7-18); BUN/Creat Ratio 9.5 RATIO (10-20); Calcium,Total 8.4 mg/dL (8.5-10.1); Chloride 104 mmol/L (98-107); Creatinine, Serum 0.74 mg/dL (0.55-1.02); EST Glomerular Filtration Rate 83 mL/min (>60); Est Glom Filt Rate - Afr Amer 100 mL/min (>60); Estimated Creatinine Clearance 47.78 ml/min; Globulin 3.5 g/dL (2.2-4.2); Glucose 83 mg/dL (74-106); Magnesium 1.9 mg/dL (1.6-2.6); Phosphorus 3.1 mg/dL (2.5-4.9); Potassium 3.7 mmol/L (3.5-5.1); Protein, Total 6.2 g/dL (6.4-8.2); Sodium Level 141 mmol/L (136-145)
[2018-08-26 06:58] VITALS: BP 152/78; PULSE 82; RESP 17; TEMP 36.6; O2SAT 95
[2018-08-26] MEDS: Ascorbic Acid 500 MG Tablet 250 MG PO (08:16)
[2018-08-26] MEDS: Polyethylene Glycol 3350 17 GM PACKET PO (08:16)
[2018-08-26] MEDS: amLODIPine 10 MG Tablet PO (08:16)
[2018-08-26] MEDS: Senna/Docusate Sodium 1 Tablet 2 TABLET PO ×2 (08:17→21:31)
[2018-08-26] MEDS: Iron Polysaccharide Complex 150 MG CAPSULE PO (08:17)
[2018-08-26] MEDS: Aspirin 81 MG TAB.CHEW PO (08:17)
[2018-08-26] MEDS: Cyanocobalamin 500 MCG Tablet 1000 MCG PO (08:22)
--- NOTE | 2018-08-26 09:11 | PN_ITS ---
Subjective: The patient is a 68 year old F resented following a fall imaging studies demonstrated acute angulated displaced fracture of the distal femoral diaphysis. Objective: GENERAL: cooperative HEENT: Atraumatic; moist oral mucosa EYES; Anicteric, Normal Conjunctiva NECK; supple, normal thyroid, no distended JVD. RESPIRATORY: Diminished to auscultation bilaterally, CARDIOVASCULAR: Regular S1 S2, no audible murmurs GI: soft, non-tender, normoactive bowel sounds, : No Renal angle tenderness; No hernandez EXTREMITIES: No edema, no clubbing, no cyanosis. MUSCULOSKELETAL: No Joint Tenderness; no muscle waisting NEURO: Awake; no lateralizing signs. SKIN: No Rash PSYCH; Normal affect Vitals/I&O's: Vital Signs Temp Pulse Resp BP Pulse Ox 97.9 F 82 17 152/78 H 95 08/26/18 06:58 08/26/18 06:58 08/26/18 06:58 08/26/18 06:58 08/26/18 06:58 Oxygen Delivery Method Room Air Weight: 74.4 kg Body Mass Index (BMI) 27.3 Laboratory Results 08/26/18 05:10: WBC 5.1, RBC 3.33 L, Hgb 9.1 L, Hct 29.1 L, MCV 87.4, MCH 27.3, MCHC 31.3 L, RDW 12.7, RDW Differential 39.5, Plt Count 273, MPV 9.3, Immature Gran % (Auto) 1.200 H, Neut % (Auto) 57.6, Lymph % (Auto) 27.0, [place] % (Auto) 7.9, Eos % (Auto) 6.1 H, Baso % (Auto) 0.2, Absolute Neuts (auto) 2.9, Absolute Lymphs (auto) 1.37, Total Counted Not Reportable 08/26/18 05:10: Sodium 141, Potassium 3.7, Chloride 104, Carbon Dioxide 28.0, Anion Gap 9, BUN 7, Creatinine 0.74, Estim Creat Clear Calc 47.78, Est GFR (MDRD) Af Amer 100, Est GFR (MDRD) Non-Af 83, BUN/Creatinine Ratio 9.5 L, Glucose 83, Calcium 8.4 L, Phosphorus 3.1, Magnesium 1.9, Total Bilirubin 0.90, AST 14 L, ALT 15, Alkaline Phosphatase 78, Total Protein 6.2 L, Albumin 2.7 L, Globulin 3.5, Albumin/Globulin Ratio 0.8 L Current Medications Acetaminophen (Tylenol) 500 mg PO TID [facility] Last Admin: 08/26/18 05:02 Dose: 500 mg Amlodipine Besylate (Norvasc) 10 mg PO DAILY [facility] Last Admin: 08/26/18 08:16 Dose: 10 mg Ascorbic [facility] (Vitamin C) [facility] Last Admin: 08/26/18 08:16 Dose: 250 mg Aspirin (Aspirin, Baby) [facility] Last Admin: 08/26/18 08:17 Dose: 81 mg Atorvastatin Calcium (Lipitor) 20 mg PO QHS [facility] Last Admin: 08/25/18 21:01 Dose: 20 mg Bisacodyl (Dulcolax) 10 mg RECTAL .PRN X 1 PRN PRN Reason: Constipation Cholecalciferol (Vitamin D) 2,000 unit PO DAILY [facility] Last Admin: 08/26/18 08:17 Dose: 2,000 unit Cyanocobalamin (Vitamin B12) 1,000 mcg PO DAILY [facility] Last Admin: 08/26/18 08:22 Dose: 1,000 mcg Enoxaparin Sodium (Lovenox) 40 mg SC DAILY@0600 [facility] Last Admin: 08/26/18 05:02 Dose: 40 mg Magnesium Hydroxide (Milk Of Magnesia) 30 ml PO .PRN X 1 PRN PRN Reason: Constipation Oxycodone HCl (Oxyir) 5 mg PO Q4H PRN PRN PRN Reason: MODERATE PAIN (4-5/10) Polyethylene Glycol (Miralax) 17 gm PO DAILY [facility] Last Admin: 08/26/18 08:16 Dose: 17 gm Polysaccharide Iron Complex (Ferrex 150) [facility] Last Admin: 08/26/18 08:17 Dose: 150 mg Senna/Docusate Sodium (Senokot-S, Holly-Colace) 2 tablet PO BID [facility] Last Admin: 08/26/18 08:17 Dose: 2 tablet Medical Necessity - Tobacco Use Smoking Status: Former smoker Assessment/Plan All Active Problems Femur fracture, right (Acute) Fracture, femur, distal (Acute) Holly-prosthetic femoral shaft fracture (Acute) The patient is a 68 year old F resented following a fall imaging studies demonstrated acute angulated displaced fracture of the distal femoral diaphysis. 1. Acute angulated displaced distal femoral shaft periprosthetic fracture secondary to mechanical fall. Patient underwent right retrograde intramedullary nailing by Dr. Martines and subsequently transferred to the inpatient rehab unit 2. Anemia secondary to acute blood loss anemia following patient distal femur fracture as well as surgery. Patient did receive parenteral iron transfusion; discharged on oral iron 3. Dyslipidemia-patient is on statin therapy, continued at home dose 4. Hypertension-blood pressure controlled, home medications continued with dose adjustment as needed 5. DVT prophylaxis; Lovenox Code Visit Inpatient E&M: 29619 Subs Hosp L2
--- NOTE | 2018-08-26 09:28 | PN.NEURO_ITS ---
Subjective: Patient napping quietly in bedside recliner. No acute events over night, pain is well controlled on current medications. Tolerating therapy, no issues with GI/. - Physical Exam General: Alert, Oriented x3, Cooperative HEENT: Atraumatic, PERRLA, EOMI, Normocephalic Neck: Supple, No JVD, Negative Carotid Bruits Lungs: Clear to auscultation, Normal air movement Cardiovascular: Regular rate, No murmurs Abdomen: Bowel Sounds Present, Soft, Non Tender Extremities: No edema, Capillary Refill Less than 3 Seconds Skin: No rashes, No breakdown Musculoskeletal: No Tenderness to Palpation of Joints or Extremities Neurological: Cranial nerves II-XII grossly intact Psych/Mental Status: Normal Affect, Appropriate, Alert and oriented to time, place, person, mood and affect Vital Signs Temp Pulse Resp BP Pulse Ox 97.9 F 82 17 152/78 H 95 08/26/18 06:58 08/26/18 06:58 08/26/18 06:58 08/26/18 06:58 08/26/18 06:58 Oxygen Delivery Method Room Air Weight: 74.4 kg Body Mass Index (BMI) 27.3 Intake and Output for Last 24 Hours 08/24/18 08/25/18 08/26/18 23:59 23:59 23:59 Intake Total 240 / 240 Balance 240 / 240 Laboratory Tests Past 24 Hrs 08/26/18 08/26/18 05:10 05:10 WBC 5.1 RBC 3.33 L Hgb 9.1 L Hct 29.1 L MCV 87.4 MCH 27.3 MCHC 31.3 L RDW 12.7 RDW Differential 39.5 Plt Count 273 MPV 9.3 Immature Gran % (Auto) 1.200 H Neut % (Auto) 57.6 Lymph % (Auto) 27.0 [place] % (Auto) 7.9 Eos % (Auto) 6.1 H Baso % (Auto) 0.2 Absolute Neuts (auto) 2.9 Absolute Lymphs (auto) 1.37 Total Counted Not Reportable Sodium 141 Potassium 3.7 Chloride 104 Carbon Dioxide 28.0 Anion Gap 9 BUN 7 Creatinine 0.74 Estim Creat Clear Calc 47.78 Est GFR (MDRD) Af Amer 100 Est GFR (MDRD) Non-Af 83 BUN/Creatinine Ratio 9.5 L Glucose 83 Calcium 8.4 L Phosphorus 3.1 Magnesium 1.9 Total Bilirubin 0.90 AST 14 L ALT 15 Alkaline Phosphatase 78 Total Protein 6.2 L Albumin 2.7 L Globulin 3.5 Albumin/Globulin Ratio 0.8 L Active Medications Acetaminophen (Tylenol) 500 mg PO TID [facility] Last Admin: 08/26/18 05:02 Dose: 500 mg Amlodipine Besylate (Norvasc) 10 mg PO DAILY [facility] Last Admin: 08/26/18 08:16 Dose: 10 mg Ascorbic Acid (Vitamin C) [facility] Last Admin: 08/26/18 08:16 Dose: 250 mg Aspirin (Aspirin, Baby) 81 [facility] Last Admin: 08/26/18 08:17 Dose: 81 mg Atorvastatin Calcium (Lipitor) 20 mg PO QHS [facility] Last Admin: 08/25/18 21:01 Dose: 20 mg Bisacodyl (Dulcolax) 10 mg RECTAL .PRN X 1 PRN PRN Reason: Constipation Cholecalciferol (Vitamin D) 2,000 unit PO DAILY [facility] Last Admin: 08/26/18 08:17 Dose: 2,000 unit Cyanocobalamin (Vitamin B12) 1,000 mcg PO DAILY [facility] Last Admin: 08/26/18 08:22 Dose: 1,000 mcg Enoxaparin Sodium (Lovenox) 40 mg SC DAILY@0600 [facility] Last Admin: 08/26/18 05:02 Dose: 40 mg Magnesium Hydroxide (Milk Of Magnesia) 30 ml PO .PRN X 1 PRN PRN Reason: Constipation Oxycodone HCl (Oxyir) 5 mg PO Q4H PRN PRN PRN Reason: MODERATE PAIN (4-5/10) Polyethylene Glycol (Miralax) 17 gm PO DAILY [facility] Last Admin: 08/26/18 08:16 Dose: 17 gm Polysaccharide Iron Complex (Ferrex 150) [facility] Last Admin: 08/26/18 08:17 Dose: 150 mg Senna/Docusate Sodium (Senokot-S, Holly-Colace) 2 tablet PO BID [facility] Last Admin: 08/26/18 08:17 Dose: 2 tablet Medical Necessity - Tobacco Use Smoking Status: Former smoker Assessment/Plan All Active Problems Femur fracture, right (Acute) Fracture, femur, distal (Acute) Holly-prosthetic femoral shaft fracture (Acute) Debility s/p right retrograde intramedullary nailing of an angulated displaced distal femoral shaft periprosthetic fracture. Complicated by HTN, and acute blood loss anemia. Goal of rehab is cheondoism of functional independence. Plan: - Physical therapy for gait and balance - Occupational Therapy for ADLs - Weight bearing status is Non-weight bearing with brace at all time for next two weeks, will be reassessed by Dr. Martines for new weight bearing status at that time. Obtain X-Rays of right femur prior to appointment. - As needed analgesics - Bowel protocol - Incision wound -> right retrograde intramedullary nailing of an angulated displaced distal femoral shaft periprosthetic fracture - Anemia 2/2 acute blood loss anemia following distal femur fracture and surgery. Patient did receive parenteral iron transfusion; discharged on oral iron - HX of HLD - Continue home dose of Statin - Hx of HTN - BP well controlled on home medications - DVT prophylaxis - Lovenox, SCDs,and Erne hoses on the Left only. - Fall Precautions
[2018-08-26 16:48] VITALS: O2SAT 96
[2018-08-26 19:24] VITALS: BP 116/71; PULSE 92; RESP 18; TEMP 37; O2SAT 96
[2018-08-26] MEDS: Atorvastatin Calcium 20 MG Tablet PO (21:31)
[2018-08-27] MEDS: Acetaminophen 500 MG Tablet PO ×3 (07:06→21:33)
[2018-08-27] MEDS: Enoxaparin 40 MG/0.4 ML Syringe SC (07:06)
[2018-08-27 07:52] VITALS: BP 121/75; PULSE 92; RESP 18; TEMP 36.7; O2SAT 94
[2018-08-27] MEDS: Cyanocobalamin 500 MCG Tablet 1000 MCG PO (08:00)
[2018-08-27] MEDS: Aspirin 81 MG TAB.CHEW PO (08:00)
[2018-08-27] MEDS: Senna/Docusate Sodium 1 Tablet 2 TABLET PO (08:00)
[2018-08-27] MEDS: Polyethylene Glycol 3350 17 GM PACKET PO (08:01)
[2018-08-27] MEDS: amLODIPine 10 MG Tablet PO (08:01)
[2018-08-27] MEDS: Ascorbic Acid 500 MG Tablet 250 MG PO (08:34)
[2018-08-27] MEDS: Iron Polysaccharide Complex 150 MG CAPSULE PO (08:34)
--- NOTE | 2018-08-27 09:19 | PN.NEURO_ITS ---
Subjective: Patient seen and examined. No acute events over night. Tolerating therapy. Incision site has some drainage at th the hip area, the other areas are clean, dry and intact. some slight swelling no redness and no tenderness along incision. No issues with GI/. - Physical Exam General: Alert, Oriented x3, Cooperative HEENT: Atraumatic, PERRLA, EOMI, Normocephalic Neck: Supple, No JVD, Negative Carotid Bruits Lungs: Clear to auscultation, Normal air movement Cardiovascular: Regular rate, No murmurs Abdomen: Bowel Sounds Present, Soft, Non Tender Extremities: No edema, Capillary Refill Less than 3 Seconds Skin: No rashes, No breakdown Musculoskeletal: No Tenderness to Palpation of Joints or Extremities Neurological: Cranial nerves II-XII grossly intact Psych/Mental Status: Normal Affect, Appropriate, Alert and oriented to time, place, person, mood and affect Vital Signs Temp Pulse Resp BP Pulse Ox 98.1 F 92 18 121/75 H 94 08/27/18 07:52 08/27/18 07:52 08/27/18 07:52 08/27/18 07:52 08/27/18 07:52 Oxygen Delivery Method Room Air Weight: 74.4 kg Body Mass Index (BMI) 27.3 Intake and Output for Last 24 Hours 08/25/18 08/26/18 08/27/18 23:59 23:59 23:59 Intake Total 700 / 700 Balance 700 / 700 Active Medications Acetaminophen (Tylenol) 500 mg PO TID [facility] Last Admin: 08/27/18 07:06 Dose: 500 mg Amlodipine Besylate (Norvasc) 10 mg PO DAILY [facility] Last Admin: 08/27/18 08:01 Dose: 10 mg Ascorbic Acid (Vitamin C) 250 mg PO DAILYCM [facility] Last Admin: 08/27/18 08:34 Dose: 250 mg Aspirin (Aspirin, Baby) 81 mg PO DAILYCM [facility] Last Admin: 08/27/18 08:00 Dose: 81 mg Atorvastatin Calcium (Lipitor) 20 mg PO QHS [facility] Last Admin: 08/26/18 21:31 Dose: 20 mg Bisacodyl (Dulcolax) 10 mg RECTAL .PRN X 1 PRN PRN Reason: Constipation Cholecalciferol (Vitamin D) 2,000 unit PO DAILY [facility] Last Admin: 08/27/18 08:00 Dose: 2,000 unit Cyanocobalamin (Vitamin B12) 1,000 mcg PO DAILY [facility] Last Admin: 08/27/18 08:00 Dose: 1,000 mcg Enoxaparin Sodium (Lovenox) 40 mg SC DAILY@0600 [facility] Last Admin: 08/27/18 07:06 Dose: 40 mg Magnesium Hydroxide (Milk Of Magnesia) 30 ml PO .PRN X 1 PRN PRN Reason: Constipation Oxycodone HCl (Oxyir) 5 mg PO Q4H PRN PRN PRN Reason: MODERATE PAIN (4-5/10) Polyethylene Glycol (Miralax) 17 gm PO DAILY [facility] Last Admin: 08/27/18 08:01 Dose: 17 gm Polysaccharide Iron Complex (Ferrex 150) 150 mg PO DAILYCM [facility] Last Admin: 08/27/18 08:34 Dose: 150 mg Senna/Docusate Sodium (Senokot-S, Holly-Colace) 2 tablet PO BID [facility] Last Admin: 08/27/18 08:00 Dose: 2 tablet Medical Necessity - Tobacco Use Smoking Status: Former smoker Assessment/Plan All Active Problems Femur fracture, right (Acute) Fracture, femur, distal (Acute) Holly-prosthetic femoral shaft fracture (Acute) Debility s/p right retrograde intramedullary nailing of an angulated displaced distal femoral shaft periprosthetic fracture. Complicated by HTN, and acute blood loss anemia. Goal of rehab is pentecostalism of functional independence. Plan: - Physical therapy for gait and balance - Occupational Therapy for ADLs - Weight bearing status is Non-weight bearing with brace at all time for next two weeks, will be reassessed by Dr. Martines for new weight bearing status at that time. Obtain X-Rays of right femur prior to appointment. - As needed analgesics - Bowel protocol - Incision wound -> right retrograde intramedullary nailing of an angulated displaced distal femoral shaft periprosthetic fracture - Anemia 2/2 acute blood loss anemia following distal femur fracture and surgery. Patient did receive parenteral iron transfusion; discharged on oral iron - HX of HLD - Continue home dose of Statin - Hx of HTN - BP well controlled on home medications - DVT prophylaxis - Lovenox, SCDs,and Rene hoses on the Left only. - Fall Precautions
--- NOTE | 2018-08-27 11:28 | NURSING ---
personal alarm removed. patient calls for assistance with all needs and transfers. discussed with therapy.
--- NOTE | 2018-08-27 12:41 | PN_ITS ---
Subjective: Patient seen has tolerated PT well Objective: GENERAL: cooperative HEENT: Atraumatic; moist oral mucosa EYES; Anicteric, Normal Conjunctiva NECK; supple, normal thyroid, no distended JVD. RESPIRATORY: Diminished to auscultation bilaterally, CARDIOVASCULAR: Regular S1 S2, no audible murmurs GI: soft, non-tender, normoactive bowel sounds, : No Renal angle tenderness; No hernandez EXTREMITIES: No edema, no clubbing, no cyanosis. MUSCULOSKELETAL: No Joint Tenderness; no muscle waisting NEURO: Awake; no lateralizing signs. SKIN: No Rash PSYCH; Normal affect Vitals/I&O's: Vital Signs Temp Pulse Resp BP Pulse Ox 98.1 F 92 18 121/75 H 94 08/27/18 07:52 08/27/18 07:52 08/27/18 07:52 08/27/18 07:52 08/27/18 07:52 Oxygen Delivery Method Room Air Weight: 74 kg Body Mass Index (BMI) 27.3 Intake and Output for Last 24 Hours 08/25/18 08/26/18 08/27/18 23:59 23:59 23:59 Intake Total 700 / 700 Balance 700 / 700 Current Medications Acetaminophen (Tylenol) 500 mg PO TID [facility] Last Admin: 08/27/18 07:06 Dose: 500 mg Amlodipine Besylate (Norvasc) 10 mg PO DAILY [facility] Last Admin: 08/27/18 08:01 Dose: 10 mg Ascorbic Acid (Vitamin C) 250 mg PO DAILYCM [facility] Last Admin: 08/27/18 08:34 Dose: 250 mg [facility], [facility]) [facility] Last Admin: 08/27/18 08:00 Dose: 81 mg Atorvastatin Calcium (Lipitor) 20 mg PO QHS [facility] Last Admin: 08/26/18 21:31 Dose: 20 mg Bisacodyl (Dulcolax) 10 mg RECTAL .PRN X 1 PRN PRN Reason: Constipation Cholecalciferol (Vitamin D) 2,000 unit PO DAILY [facility] Last Admin: 08/27/18 08:00 Dose: 2,000 unit Cyanocobalamin (Vitamin B12) 1,000 mcg PO DAILY [facility] Last Admin: 08/27/18 08:00 Dose: 1,000 mcg Enoxaparin Sodium (Lovenox) 40 mg SC DAILY@0600 [facility] Last Admin: 08/27/18 07:06 Dose: 40 mg Magnesium Hydroxide (Milk Of Magnesia) 30 ml PO .PRN X 1 PRN PRN Reason: Constipation Oxycodone HCl (Oxyir) 5 mg PO Q4H PRN PRN PRN Reason: MODERATE PAIN (4-5/10) Polyethylene Glycol (Miralax) 17 gm PO DAILY [facility] Last Admin: 08/27/18 08:01 Dose: 17 gm Polysaccharide Iron Complex (Ferrex 150) 150 mg PO DAILYCM [facility] Last Admin: 08/27/18 08:34 Dose: 150 mg Senna/Docusate Sodium (Senokot-S, Holly-Colace) 2 tablet PO BID [facility] Last Admin: 08/27/18 08:00 Dose: 2 tablet Medical Necessity - Tobacco Use Smoking Status: Former smoker Assessment/Plan All Active Problems Femur fracture, right (Acute) Fracture, femur, distal (Acute) Holly-prosthetic femoral shaft fracture (Acute) The patient is a 68 year old F resented following a fall imaging studies demonstrated acute angulated displaced fracture of the distal femoral diaphysis. 1. Acute angulated displaced distal femoral shaft periprosthetic fracture secondary to mechanical fall. Patient underwent right retrograde intramedullary nailing by Dr. Martines and subsequently transferred to the inpatient rehab unit 2. Anemia secondary to acute blood loss anemia following patient distal femur fracture as well as surgery. Patient did receive parenteral iron transfusion; discharged on oral iron 3. Dyslipidemia-patient is on statin therapy, continued at home dose 4. Hypertension-blood pressure controlled, home medications continued with dose adjustment as needed 5. DVT prophylaxis; Jordan Code Visit Inpatient E&M: 56680 [facility] Hosp L2
[2018-08-27 20:32] VITALS: BP 125/77; PULSE 89; RESP 12; TEMP 36.7; O2SAT 97
[2018-08-27] MEDS: Atorvastatin Calcium 20 MG Tablet PO (21:34)
[2018-08-28] MEDS: Acetaminophen 500 MG Tablet PO ×3 (05:00→20:24)
[2018-08-28] MEDS: Enoxaparin 40 MG/0.4 ML Syringe SC (05:01)
[2018-08-28 07:00] VITALS: O2SAT 98
[2018-08-28 07:59] VITALS: BP 131/69; PULSE 82; RESP 20; TEMP 36.5; O2SAT 98
[2018-08-28] MEDS: Cyanocobalamin 500 MCG Tablet 1000 MCG PO (08:03)
[2018-08-28] MEDS: Aspirin 81 MG TAB.CHEW PO (08:03)
[2018-08-28] MEDS: Senna/Docusate Sodium 1 Tablet 2 TABLET PO (08:03)
[2018-08-28] MEDS: Ascorbic Acid 500 MG Tablet 250 MG PO (08:04)
[2018-08-28] MEDS: Iron Polysaccharide Complex 150 MG CAPSULE PO (08:04)
[2018-08-28] MEDS: amLODIPine 10 MG Tablet PO (08:04)
--- NOTE | 2018-08-28 10:20 | PCM.PN.NEU ---
Subjective: Patient seen and examined. No new complaints. Tolerating therapy. Incision C/D/I - Physical Exam General: Alert, Oriented x3, Cooperative HEENT: Atraumatic, PERRLA, EOMI, Normocephalic Neck: Supple, No JVD, Negative Carotid Bruits Lungs: Clear to auscultation, Normal air movement Cardiovascular: Regular rate, No murmurs Abdomen: Bowel Sounds Present, Soft, Non Tender Extremities: No edema, Capillary Refill Less than 3 Seconds Skin: No rashes, No breakdown Musculoskeletal: No Tenderness to Palpation of Joints or Extremities Neurological: Cranial nerves II-XII grossly intact Psych/Mental Status: Normal Affect, Appropriate, Alert and oriented to time, place, person, mood and affect Vital Signs Temp Pulse Resp BP Pulse Ox 97.7 F L 82 20 H 131/69 H 98 08/28/18 07:59 08/28/18 07:59 08/28/18 07:59 08/28/18 07:59 08/28/18 07:59 Oxygen Delivery Method Room Air Weight: 74 kg Body Mass Index (BMI) 27.3 Intake and Output for Last 24 Hours 08/26/18 08/27/18 08/28/18 23:59 23:59 23:59 Intake Total 700 / 700 Balance 700 / 700 Active Medications Acetaminophen (Tylenol) 500 mg PO TID [facility] Last Admin: 08/28/18 05:00 Dose: 500 mg Amlodipine Besylate (Norvasc) 10 mg PO DAILY [facility] Last Admin: 08/28/18 08:04 Dose: 10 mg [facility] Admin: 08/28/18 08:04 Dose: 250 mg [facility], [facility]) [facility] Last Admin: 08/28/18 08:03 Dose: 81 mg Atorvastatin Calcium (Lipitor) 20 mg PO QHS [facility] Last Admin: 08/27/18 21:34 Dose: 20 mg Bisacodyl (Dulcolax) 10 mg RECTAL .PRN X 1 PRN PRN Reason: Constipation Cholecalciferol (Vitamin D) 2,000 unit PO DAILY [facility] Last Admin: 08/28/18 08:03 Dose: 2,000 unit Cyanocobalamin (Vitamin B12) 1,000 mcg PO DAILY [facility] Last Admin: 08/28/18 08:03 Dose: 1,000 mcg Enoxaparin Sodium (Lovenox) 40 mg SC DAILY@0600 [facility] Last Admin: 08/28/18 05:01 Dose: 40 mg Magnesium Hydroxide (Milk Of Magnesia) 30 ml PO .PRN X 1 PRN PRN Reason: Constipation Oxycodone HCl (Oxyir) 5 mg PO Q4H PRN PRN PRN Reason: MODERATE PAIN (4-5/10) Polyethylene Glycol (Miralax) 17 gm PO DAILY [facility] Last Admin: 08/28/18 08:53 Dose: Not Given Polysaccharide Iron Complex (Ferrex 150) 150 mg PO DAILYCM [facility] Last Admin: 08/28/18 08:04 Dose: 150 mg Senna/Docusate Sodium (Senokot-S, Holly-Colace) 2 tablet PO BID [facility] Last Admin: 08/28/18 08:03 Dose: 2 tablet Medical Necessity - Tobacco Use Smoking Status: Former smoker Assessment/Plan All Active Problems Femur fracture, right (Acute) Fracture, femur, distal (Acute) Holly-prosthetic femoral shaft fracture (Acute) Debility s/p right retrograde intramedullary nailing of an angulated displaced distal femoral shaft periprosthetic fracture. Complicated by HTN, and acute blood loss anemia. Goal of rehab is moravian of functional independence. Plan: - Physical therapy for gait and balance - Occupational Therapy for ADLs - Weight bearing status is Non-weight bearing with brace at all time for next two weeks, will be reassessed by Dr. Martines for new weight bearing status at that time. Obtain X-Rays of right femur prior to appointment. - As needed analgesics - Bowel protocol - Incision wound -> right retrograde intramedullary nailing of an angulated displaced distal femoral shaft periprosthetic fracture - Anemia 2/2 acute blood loss anemia following distal femur fracture and surgery. Patient did receive parenteral iron transfusion; discharged on oral iron - HX of HLD - Continue home dose of Statin - Hx of HTN - BP well controlled on home medications - DVT prophylaxis - Lovenox, SCDs,and Rene hoses on the Left only. - Fall Precautions
[2018-08-28 19:37] VITALS: BP 127/78; PULSE 95; RESP 18; TEMP 36.9; O2SAT 98
[2018-08-28] MEDS: Atorvastatin Calcium 20 MG Tablet PO (20:24)
[2018-08-29] MEDS: Enoxaparin 40 MG/0.4 ML Syringe SC (06:20)
[2018-08-29] MEDS: Acetaminophen 500 MG Tablet PO ×3 (06:20→21:28)
[2018-08-29 07:52] VITALS: BP 121/71; PULSE 93; RESP 20; TEMP 36.7; O2SAT 95
[2018-08-29] MEDS: Ascorbic Acid 500 MG Tablet 250 MG PO (10:02)
[2018-08-29] MEDS: amLODIPine 10 MG Tablet PO (10:02)
[2018-08-29] MEDS: Aspirin 81 MG TAB.CHEW PO (10:04)
[2018-08-29] MEDS: Cyanocobalamin 500 MCG Tablet 1000 MCG PO (10:04)
[2018-08-29] MEDS: Iron Polysaccharide Complex 150 MG CAPSULE PO (10:05)
--- NOTE | 2018-08-29 13:44 | PCM.PN.NEU ---
Subjective: Patient seen and examined. No new complaints. Tolerating therapy. Denies any calf pain, or shortness of breath. Incision site is C/D/I, some slight edema along incision site, wound is well approximated. No issues with GI/. - Physical Exam General: Alert, Oriented x3, Cooperative HEENT: Atraumatic, PERRLA, EOMI, Normocephalic Neck: Supple, No JVD, Negative Carotid Bruits Lungs: Clear to auscultation, Normal air movement Cardiovascular: Regular rate, No murmurs Abdomen: Bowel Sounds Present, Soft, Non Tender Extremities: No edema, Capillary Refill Less than 3 Seconds Skin: No rashes, No breakdown Musculoskeletal: No Tenderness to Palpation of Joints or Extremities Neurological: Cranial nerves II-XII grossly intact Psych/Mental Status: Normal Affect, Appropriate, Alert and oriented to time, place, person, mood and affect Vital Signs Temp Pulse Resp BP Pulse Ox 98.0 F 93 20 H 121/71 H 95 08/29/18 07:52 08/29/18 07:52 08/29/18 07:52 08/29/18 07:52 08/29/18 07:52 Oxygen Delivery Method Room Air Weight: 74 kg Body Mass Index (BMI) 27.3 Intake and Output for Last 24 Hours 08/27/18 08/28/18 08/29/18 23:59 23:59 23:59 Intake Total 360 / 360 Balance 360 / 360 Active Medications Acetaminophen (Tylenol) 500 mg PO TID [facility] Last Admin: 08/29/18 13:42 Dose: 500 mg Amlodipine Besylate (Norvasc) 10 mg PO DAILY [facility] Last Admin: 08/29/18 10:02 Dose: 10 mg Ascorbic Acid (Vitamin C) 250 mg PO DAILYCM [facility] Last Admin: 08/29/18 10:02 Dose: 250 mg Aspirin (Aspirin, Baby) 81 mg PO DAILYCM [facility] Last Admin: 08/29/18 10:04 Dose: 81 mg Atorvastatin Calcium (Lipitor) 20 mg PO QHS [facility] Last Admin: 08/28/18 20:24 Dose: 20 mg Bisacodyl (Dulcolax) 10 mg RECTAL .PRN X 1 PRN PRN Reason: Constipation Cholecalciferol (Vitamin D) 2,000 unit PO DAILY [facility] Last Admin: 08/29/18 10:04 Dose: 2,000 unit Cyanocobalamin (Vitamin B12) 1,000 mcg PO DAILY [facility] Last Admin: 08/29/18 10:04 Dose: 1,000 mcg Enoxaparin Sodium (Lovenox) 40 mg SC DAILY@0600 [facility] Last Admin: 08/29/18 06:20 Dose: 40 mg Magnesium Hydroxide (Milk Of Magnesia) 30 ml PO .PRN X 1 PRN PRN Reason: Constipation Oxycodone HCl (Oxyir) 5 mg PO Q4H PRN PRN PRN Reason: MODERATE PAIN (4-5/10) Polyethylene Glycol (Miralax) 17 gm PO DAILY [facility] Last Admin: 08/29/18 10:07 Dose: Not Given Polysaccharide Iron Complex (Ferrex 150) 150 mg PO DAILYCM [facility] Last Admin: 08/29/18 10:05 Dose: 150 mg Senna/Docusate Sodium (Senokot-S, Holly-Colace) 2 tablet PO BID [facility] Last Admin: 08/29/18 10:08 Dose: Not Given Medical Necessity - Tobacco Use Smoking Status: Former smoker Assessment/Plan All Active Problems Femur fracture, right (Acute) Fracture, femur, distal (Acute) Holly-prosthetic femoral shaft fracture (Acute) Debility s/p right retrograde intramedullary nailing of an angulated displaced distal femoral shaft periprosthetic fracture. Complicated by HTN, and acute blood loss anemia. Goal of rehab is buddhist of functional independence. Plan: - Physical therapy for gait and balance - Occupational Therapy for ADLs - Weight bearing status is Non-weight bearing with brace at all time for next two weeks, will be reassessed by Dr. Martines for new weight bearing status at that time. Obtain X-Rays of right femur prior to appointment. - As needed analgesics - Bowel protocol - Incision wound -> right retrograde intramedullary nailing of an angulated displaced distal femoral shaft periprosthetic fracture - Anemia 2/2 acute blood loss anemia following distal femur fracture and surgery. Patient did receive parenteral iron transfusion; discharged on oral iron - HX of HLD - Continue home dose of Statin - Hx of HTN - BP well controlled on home medications - DVT prophylaxis - Lovenox, SCDs,and Rene hoses on the Left only. - Fall Precautions
--- NOTE | 2018-08-29 13:47 | PN.NEURO_ITS ---
Subjective: Patient seen and examined. No new complaints. Tolerating therapy. Denies any calf pain, or shortness of breath. Incision site is C/D/I, some slight edema along incision site, wound is well approximated. No issues with GI/. - Physical Exam General: Alert, Oriented x3, Cooperative HEENT: Atraumatic, PERRLA, EOMI, Normocephalic Neck: Supple, No JVD, Negative Carotid Bruits Lungs: Clear to auscultation, Normal air movement Cardiovascular: Regular rate, No murmurs Abdomen: Bowel Sounds Present, Soft, Non Tender Extremities: No edema, Capillary Refill Less than 3 Seconds Skin: No rashes, No breakdown Musculoskeletal: No Tenderness to Palpation of Joints or Extremities Neurological: Cranial nerves II-XII grossly intact Psych/Mental Status: Normal Affect, Appropriate, Alert and oriented to time, place, person, mood and affect Vital Signs Temp Pulse Resp BP Pulse Ox 98.0 F 93 20 H 121/71 H 95 08/29/18 07:52 08/29/18 07:52 08/29/18 07:52 08/29/18 07:52 08/29/18 07:52 Oxygen Delivery Method Room Air Weight: 74 kg Body Mass Index (BMI) 27.3 Intake and Output for Last 24 Hours 08/27/18 08/28/18 08/29/18 23:59 23:59 23:59 Intake Total 360 / 360 Balance 360 / 360 Active Medications Acetaminophen (Tylenol) [address] [facility] Last Admin: 08/29/18 13:42 Dose: 500 mg Amlodipine Besylate (Norvasc) [address] [facility] Last Admin: 08/29/18 10:02 Dose: 10 mg Ascorbic Acid (Vitamin C) [address] [facility] Last Admin: 08/29/18 10:02 Dose: 250 mg Aspirin (Aspirin, Baby) [address] [facility] Last Admin: 08/29/18 10:04 Dose: 81 mg Atorvastatin Calcium (Lipitor) [address] [facility] Last Admin: 08/28/18 20:24 Dose: 20 mg Bisacodyl (Dulcolax) 10 mg RECTAL .PRN X 1 PRN PRN Reason: Constipation Cholecalciferol (Vitamin D) 2,[address] [facility] Last Admin: 08/29/18 10:04 Dose: 2,000 unit Cyanocobalamin (Vitamin B12) 1,[address] [facility] Last Admin: 08/29/18 10:04 Dose: 1,000 mcg Enoxaparin Sodium (Lovenox) 40 mg SC DAILY@0600 [facility] Last Admin: 08/29/18 06:20 Dose: 40 mg Magnesium Hydroxide (Milk Of Magnesia) 30 ml PO .PRN X 1 PRN PRN Reason: Constipation Oxycodone HCl (Oxyir) 5 mg PO Q4H PRN PRN PRN Reason: MODERATE PAIN (4-5/10) Polyethylene Glycol (Miralax) [address] [facility] Last Admin: 08/29/18 10:07 Dose: Not Given Polysaccharide Iron Complex (Ferrex 150) [address] [facility] Last Admin: 08/29/18 10:05 Dose: 150 mg Senna/Docusate Sodium (Senokot-S, Holly-Colace) [address] [facility] Last Admin: 08/29/18 10:08 Dose: Not Given Medical Necessity - Tobacco Use Smoking Status: Former smoker Assessment/Plan All Active Problems Femur fracture, right (Acute) Fracture, femur, distal (Acute) Holly-prosthetic femoral shaft fracture (Acute) Debility s/p right retrograde intramedullary nailing of an angulated displaced distal femoral shaft periprosthetic fracture. Complicated by HTN, and acute blood loss anemia. Goal of rehab is scientology of functional independence. Plan: - Physical therapy for gait and balance - Occupational Therapy for ADLs - Weight bearing status is Non-weight bearing with brace at all time for next two weeks, will be reassessed by Dr. Martines for new weight bearing status at that time. Obtain X-Rays of right femur prior to appointment. - As needed analgesics - Bowel protocol - Incision wound -> right retrograde intramedullary nailing of an angulated displaced distal femoral shaft periprosthetic fracture - Anemia 2/2 acute blood loss anemia following distal femur fracture and surgery. Patient did receive parenteral iron transfusion; discharged on oral iron - HX of HLD - Continue home dose of Statin - Hx of HTN - BP well controlled on home medications - DVT prophylaxis - Lovenox, SCDs,and Rene hoses on the Left only. - Fall Precautions
--- NOTE | 2018-08-29 17:34 | PN_ITS ---
Subjective: Patient seen, PT going as planned. Blood pressure is stable. Hemoglobin on admission 9.0 plan is to repeat H&H for tomorrow Objective: GENERAL: cooperative HEENT: Atraumatic; moist oral mucosa EYES; Anicteric, Normal Conjunctiva NECK; supple, normal thyroid, no distended JVD. RESPIRATORY: Diminished to auscultation bilaterally, CARDIOVASCULAR: Regular S1 S2, no audible murmurs GI: soft, non-tender, normoactive bowel sounds, : No Renal angle tenderness; No hernandez EXTREMITIES: No edema, no clubbing, no cyanosis. MUSCULOSKELETAL: No Joint Tenderness; no muscle waisting NEURO: Awake; no lateralizing signs. SKIN: No Rash PSYCH; Normal affect Vitals/I&O's: Vital Signs Temp Pulse Resp BP Pulse Ox 98.0 F 93 20 H 121/71 H 95 08/29/18 07:52 08/29/18 07:52 08/29/18 07:52 08/29/18 07:52 08/29/18 07:52 Oxygen Delivery Method Room Air Weight: 74 kg Body Mass Index (BMI) 27.3 Intake and Output for Last 24 Hours 08/27/18 08/28/18 08/29/18 23:59 23:59 23:59 Intake Total 720 / 720 Balance 720 / 720 Current Medications Acetaminophen (Tylenol) 500 mg PO TID [facility] Last Admin: 08/29/18 13:42 Dose: 500 mg Amlodipine Besylate (Norvasc) 10 mg PO DAILY [facility] Last Admin: 08/29/18 10:02 Dose: 10 mg [facility]orbic [facility] ([facility]itamin [facility]) [address] [facility] Last Admin: 08/29/18 10:02 Dose: 250 mg Aspirin ([facility]spirin, Baby) [address] [facility] Last Admin: 08/29/18 10:04 Dose: 81 mg Atorvastatin Calcium (Lipitor) 20 mg PO QHS [facility] Last Admin: 08/28/18 20:24 Dose: 20 mg Bisacodyl (Dulcolax) 10 mg RECTAL .PRN X 1 PRN PRN Reason: Constipation Cholecalciferol (Vitamin D) 2,000 unit PO DAILY [facility] Last Admin: 08/29/18 10:04 Dose: 2,000 unit Cyanocobalamin (Vitamin B12) 1,000 mcg PO DAILY [facility] Last Admin: 10/12/18 10:04 Dose: 1,000 mcg Enoxaparin Sodium (Lovenox) 40 mg SC DAILY@0600 [facility] Last Admin: 08/29/18 06:20 Dose: 40 mg Magnesium Hydroxide (Milk Of Magnesia) 30 ml PO .PRN X 1 PRN PRN Reason: Constipation Oxycodone HCl (Oxyir) 5 mg PO Q4H PRN PRN PRN Reason: MODERATE PAIN (4-5/10) Polyethylene Glycol (Miralax) 17 gm PO DAILY [facility] Last Admin: 08/29/18 10:07 Dose: Not Given Polysaccharide Iron Complex (Ferrex 150) 150 mg PO DAILYCM [facility] Last Admin: 08/29/18 10:05 Dose: 150 mg Senna/Docusate Sodium (Senokot-S, Holly-Colace) 2 tablet PO BID [facility] Last Admin: 08/29/18 10:08 Dose: Not Given Medical Necessity - Tobacco Use Smoking Status: Former smoker Assessment/Plan All Active Problems Femur fracture, right (Acute) Fracture, femur, distal (Acute) Holly-prosthetic femoral shaft fracture (Acute) The patient is a 68 year old F resented following a fall imaging studies demonstrated acute angulated displaced fracture of the distal femoral diaphysis. 1. Acute angulated displaced distal femoral shaft periprosthetic fracture secondary to mechanical fall. Patient underwent right retrograde intramedullary nailing by Dr. Martines and subsequently transferred to the inpatient rehab unit. Patient has tolerated PT well so far 2. Anemia secondary to acute blood loss anemia following patient distal femur fracture as well as surgery. Patient did receive parenteral iron transfusion; discharged on oral iron with hemoglobin level on 08/30/2018 3. Dyslipidemia-patient is on statin therapy, continued at home dose 4. Hypertension-blood pressure controlled, home medications continued with dose adjustment as needed 5. DVT prophylaxis; Lovenox Code Visit Inpatient E&M: 19087 [facility] Hosp L2
[2018-08-29 19:35] VITALS: BP 123/58; PULSE 81; RESP 12; TEMP 36.6; O2SAT 98
[2018-08-29] MEDS: Atorvastatin Calcium 20 MG Tablet PO (21:29)
[2018-08-30] MEDS: Acetaminophen 500 MG Tablet PO ×3 (06:40→21:20)
[2018-08-30] MEDS: Enoxaparin 40 MG/0.4 ML Syringe SC (06:40)
[2018-08-30 07:34] VITALS: BP 123/64; PULSE 80; RESP 16; TEMP 36.5; O2SAT 98
[2018-08-30] MEDS: Ascorbic Acid 500 MG Tablet 250 MG PO (08:55)
[2018-08-30] MEDS: Iron Polysaccharide Complex 150 MG CAPSULE PO (08:55)
[2018-08-30] MEDS: Cyanocobalamin 500 MCG Tablet 1000 MCG PO (08:55)
[2018-08-30] MEDS: amLODIPine 10 MG Tablet PO (08:55)
[2018-08-30] MEDS: Aspirin 81 MG TAB.CHEW PO (08:55)
[2018-08-30] MEDS: Polyethylene Glycol 3350 17 GM PACKET PO (08:57)
[2018-08-30 18:48] VITALS: BP 132/66; PULSE 103; RESP 16; TEMP 36.4; O2SAT 98
[2018-08-30] MEDS: Atorvastatin Calcium 20 MG Tablet PO (21:20)
[2018-08-30] MEDS: Senna/Docusate Sodium 1 Tablet 2 TABLET PO (21:20)
[2018-08-31] MEDS: Acetaminophen 500 MG Tablet PO ×3 (06:14→21:06)
[2018-08-31] MEDS: Enoxaparin 40 MG/0.4 ML Syringe SC (06:15)
[2018-08-31 08:15] VITALS: BP 120/69; PULSE 70; RESP 16; TEMP 36.6; O2SAT 99
[2018-08-31] MEDS: amLODIPine 10 MG Tablet PO (09:20)
[2018-08-31] MEDS: Cyanocobalamin 500 MCG Tablet 1000 MCG PO (09:20)
[2018-08-31] MEDS: Polyethylene Glycol 3350 17 GM PACKET PO (09:20)
[2018-08-31] MEDS: Iron Polysaccharide Complex 150 MG CAPSULE PO (09:21)
[2018-08-31] MEDS: Ascorbic Acid 500 MG Tablet 250 MG PO (09:21)
[2018-08-31] MEDS: Aspirin 81 MG TAB.CHEW PO (09:21)
[2018-08-31] MEDS: Senna/Docusate Sodium 1 Tablet 2 TABLET PO ×2 (09:23→21:06)
--- NOTE | 2018-08-31 09:29 | PCM.PN.HOSP ---
Subjective: Patient seen PT going as expected. Blood pressure stable pain is tolerable Objective: GENERAL: cooperative HEENT: Atraumatic; moist oral mucosa EYES; Anicteric, Normal Conjunctiva NECK; supple, normal thyroid, no distended JVD. RESPIRATORY: Diminished to auscultation bilaterally, CARDIOVASCULAR: Regular S1 S2, no audible murmurs GI: soft, non-tender, normoactive bowel sounds, : No Renal angle tenderness; No hernandez EXTREMITIES: No edema, no clubbing, no cyanosis. MUSCULOSKELETAL: No Joint Tenderness; no muscle waisting NEURO: Awake; no lateralizing signs. SKIN: No Rash PSYCH; Normal affect Vitals/I&O's: Vital Signs Temp Pulse Resp BP Pulse Ox 97.8 F 70 16 120/69 99 08/31/18 08:15 08/31/18 08:15 08/31/18 08:15 08/31/18 08:15 08/31/18 08:15 Oxygen Delivery Method Room Air Weight: 74 kg Body Mass Index (BMI) 27.3 Intake and Output for Last 24 Hours 08/29/18 08/30/18 08/31/18 23:59 23:59 23:59 Intake Total 720 / 720 720 / 720 Balance 720 / 720 720 / 720 Current Medications Acetaminophen (Tylenol) 500 mg PO TID [facility] Last Admin: 08/31/18 06:14 Dose: 500 mg Amlodipine Besylate (Norvasc) 10 mg PO DAILY [facility] Last Admin: 08/31/18 09:20 Dose: 10 mg [facility]orbic [facility]) [facility] Last Admin: 08/31/18 09:21 Dose: 250 mg Aspirin (A[facility]in, Baby) [facility] Last Admin: 08/31/18 09:21 Dose: 81 mg Atorvastatin Calcium (Lipitor) 20 mg PO QHS [facility] Last Admin: 08/30/18 21:20 Dose: 20 mg Bisacodyl (Dulcolax) 10 mg RECTAL .PRN X 1 PRN PRN Reason: Constipation Cholecalciferol (Vitamin D) 2,000 unit PO DAILY [facility] Last Admin: 08/31/18 09:23 Dose: 2,000 unit Cyanocobalamin (Vitamin B12) 1,000 mcg PO DAILY [facility] Last Admin: 08/31/18 09:20 Dose: 1,000 mcg Enoxaparin Sodium (Lovenox) 40 mg SC DAILY@0600 [facility] Last Admin: 08/31/18 06:15 Dose: 40 mg Magnesium Hydroxide (Milk Of Magnesia) 30 ml PO .PRN X 1 PRN PRN Reason: Constipation Oxycodone HCl (Oxyir) 5 mg PO Q4H PRN PRN PRN Reason: MODERATE PAIN (4-5/10) Polyethylene Glycol (Miralax) 17 gm PO DAILY [facility] Last Admin: 08/31/18 09:20 Dose: 17 gm Polysaccharide Iron Complex (Ferrex 150) 150 mg PO DAILYCM [facility] Last Admin: 08/31/18 09:21 Dose: 150 mg Senna/Docusate Sodium (Senokot-S, Holly-Colace) 2 tablet PO BID [facility] Last Admin: 08/31/18 09:23 Dose: 2 tablet Medical Necessity - Tobacco Use Smoking Status: Former smoker Assessment/Plan All Active Problems Femur fracture, right (Acute) Fracture, femur, distal (Acute) Holly-prosthetic femoral shaft fracture (Acute) The patient is a 68 year old F resented following a fall imaging studies demonstrated acute angulated displaced fracture of the distal femoral diaphysis. 1. Acute angulated displaced distal femoral shaft periprosthetic fracture secondary to mechanical fall. Patient underwent right retrograde intramedullary nailing by Dr. Martines and subsequently transferred to the inpatient rehab unit. Patient has tolerated PT well so far 2. Anemia secondary to acute blood loss anemia following patient distal femur fracture as well as surgery. Patient did receive parenteral iron transfusion; discharged on oral iron with hemoglobin level on 08/30/2018 3. Dyslipidemia-patient is on statin therapy, continued at home dose 4. Hypertension-blood pressure controlled, home medications continued with dose adjustment as needed 5. DVT prophylaxis; Lovenox Code Visit Inpatient E&M: 00145 Subs Hosp L2
--- NOTE | 2018-08-31 15:41 | NURSING ---
This RN changed 3 dressings to RLE, yancy intact on all three areas, no drainage noted, new dressing applied, pt tolerated well.
--- NOTE | 2018-08-31 15:43 | NURSING ---
Staff gave shower to pt, pt tolerated well.
[2018-08-31 18:43] VITALS: BP 116/69; PULSE 90; RESP 16; TEMP 36.4; O2SAT 98
[2018-08-31] MEDS: Atorvastatin Calcium 20 MG Tablet PO (21:06)
[2018-09-01] MEDS: Acetaminophen 500 MG Tablet PO ×3 (06:12→22:02)
[2018-09-01] MEDS: Enoxaparin 40 MG/0.4 ML Syringe SC (06:12)
[2018-09-01 07:40] VITALS: BP 109/66; PULSE 78; RESP 18; TEMP 36.7; O2SAT 95
[2018-09-01] MEDS: Aspirin 81 MG TAB.CHEW PO (07:42)
[2018-09-01] MEDS: amLODIPine 10 MG Tablet PO (07:42)
[2018-09-01] MEDS: Ascorbic Acid 500 MG Tablet 250 MG PO (07:42)
[2018-09-01] MEDS: Cyanocobalamin 500 MCG Tablet 1000 MCG PO (07:43)
[2018-09-01] MEDS: Senna/Docusate Sodium 1 Tablet 2 TABLET PO ×2 (07:43→22:03)
[2018-09-01] MEDS: Polyethylene Glycol 3350 17 GM PACKET PO (07:43)
[2018-09-01] MEDS: Iron Polysaccharide Complex 150 MG CAPSULE PO (07:44)
--- NOTE | 2018-09-01 10:13 | PCM.PN.NEU ---
Subjective: Staffed in team meeting. Family at bedside, questions answered. With Physical therapy, she is able to get in and out of bed at stand by assist. She is hopping using the left leg 2/2 NWBT on the right 25 feet using a walker. They have simulated a step by having her hop onto a platform the same height as the entryway into her home, at stand by assist. With Occupational therapy, she is able to do all her own self care at set up level, for showers they wrap her leg so that she is able to take a shower using a shower chair. They have worked on wheelchair mobility which she is doing well. With Nursing her pain is well controlled, she does not require pain medication, only the occasional Tylenol. Her incision site is C/D/I, and well approximated, there is no swelling, or redness noted to the site. The plan is for discharge on 09/05. - Physical Exam General: Alert, Oriented x3, Cooperative HEENT: Atraumatic, PERRLA, EOMI, Normocephalic Neck: Supple, No JVD, Negative Carotid Bruits Lungs: Clear to auscultation, Normal air movement Cardiovascular: Regular rate, No murmurs Abdomen: Bowel Sounds Present, Soft, Non Tender Extremities: No edema, Capillary Refill Less than 3 Seconds Skin: No rashes, No breakdown Musculoskeletal: No Tenderness to Palpation of Joints or Extremities Neurological: Cranial nerves II-XII grossly intact Psych/Mental Status: Normal Affect, Appropriate, Alert and oriented to time, place, person, mood and affect Vital Signs Temp Pulse Resp BP Pulse Ox 98.1 F 78 18 109/66 95 09/01/18 07:40 09/01/18 07:40 09/01/18 07:40 09/01/18 07:40 09/01/18 07:40 Oxygen Delivery Method Room Air Weight: 74 kg Body Mass Index (BMI) 27.3 Intake and Output for Last 24 Hours 08/30/18 08/31/18 09/01/18 23:59 23:59 23:59 Intake Total 720 / 720 240 / 240 Balance 720 / 720 240 / 240 Active Medications Acetaminophen (Tylenol) 500 mg PO TID [facility] Last Admin: 09/01/18 06:12 Dose: 500 mg Amlodipine Besylate (Norvasc) 10 mg PO DAILY [facility] Last Admin: 09/01/18 07:42 Dose: 10 mg Ascorbic [facility] ([facility]amin C) [facility] Last Admin: 09/01/18 07:42 Dose: 250 mg Aspirin (Aspirin, Baby) [facility] Last Admin: 09/01/18 07:42 Dose: 81 mg Atorvastatin Calcium (Lipitor) 20 mg PO QHS [facility] Last Admin: 08/31/18 21:06 Dose: 20 mg Bisacodyl (Dulcolax) 10 mg RECTAL .PRN X 1 PRN PRN Reason: Constipation Cholecalciferol (Vitamin D) 2,000 unit PO DAILY [facility] Last Admin: 09/01/18 07:43 Dose: 2,000 unit Cyanocobalamin (Vitamin B12) 1,000 mcg PO DAILY [facility] Last Admin: 09/01/18 07:43 Dose: 1,000 mcg Enoxaparin Sodium (Lovenox) 40 mg SC DAILY@0600 [facility] Last Admin: 09/01/18 06:12 Dose: 40 mg Magnesium Hydroxide (Milk Of Magnesia) 30 ml PO .PRN X 1 PRN PRN Reason: Constipation Oxycodone HCl (Oxyir) 5 mg PO Q4H PRN PRN PRN Reason: MODERATE PAIN (4-5/10) Polyethylene Glycol (Miralax) 17 gm PO DAILY [facility] Last Admin: 09/01/18 07:43 Dose: 17 gm Polysaccharide Iron Complex (Ferrex 150) [facility] Last Admin: 09/01/18 07:44 Dose: 150 mg Senna/Docusate Sodium (Senokot-S, Holly-Colace) 2 tablet PO BID [facility] Last Admin: 09/01/18 07:43 Dose: 2 tablet Medical Necessity - Tobacco Use Smoking Status: Former smoker Assessment/Plan All Active Problems Femur fracture, right (Acute) Fracture, femur, distal (Acute) Holly-prosthetic femoral shaft fracture (Acute) Debility s/p right retrograde intramedullary nailing of an angulated displaced distal femoral shaft periprosthetic fracture. Complicated by HTN, and acute blood loss anemia. Goal of rehab is yazdanism of functional independence. Plan: - Physical therapy for gait and balance - Occupational Therapy for ADLs - Weight bearing status is Non-weight bearing with brace at all time for next two weeks, will be reassessed by Dr. Martines for new weight bearing status at that time. Obtain X-Rays of right femur prior to appointment. - As needed analgesics - Bowel protocol - Incision wound -> right retrograde intramedullary nailing of an angulated displaced distal femoral shaft periprosthetic fracture - Anemia 2/2 acute blood loss anemia following distal femur fracture and surgery. Patient did receive parenteral iron transfusion; discharged on oral iron - HX of HLD - Continue home dose of Statin - Hx of HTN - BP well controlled on home medications - DVT prophylaxis - Lovenox, SCDs,and Rene hoses on the Left only. - Fall Precautions
--- NOTE | 2018-09-01 10:24 | PN.NEURO_ITS ---
Subjective: Staffed in team meeting. Family at bedside, questions answered. With Physical therapy, she is able to get in and out of bed at stand by assist. She is hopping using the left leg 2/2 NWBT on the right 25 feet using a walker. They have simulated a step by having her hop onto a platform the same height as the entryway into her home, at stand by assist. With Occupational therapy, she is able to do all her own self care at set up level, for showers they wrap her leg so that she is able to take a shower using a shower chair. They have worked on wheelchair mobility which she is doing well. With Nursing her pain is well controlled, she does not require pain medication, only the occasional Tylenol. Her incision site is C/D/I, and well approximated, there is no swelling, or redness noted to the site. The plan is for discharge on 09/05. - Physical Exam General: Alert, Oriented x3, Cooperative HEENT: Atraumatic, PERRLA, EOMI, Normocephalic Neck: Supple, No JVD, Negative Carotid Bruits Lungs: Clear to auscultation, Normal air movement Cardiovascular: Regular rate, No murmurs Abdomen: Bowel Sounds Present, Soft, Non Tender Extremities: No edema, Capillary Refill Less than 3 Seconds Skin: No rashes, No breakdown Musculoskeletal: No Tenderness to Palpation of Joints or Extremities Neurological: Cranial nerves II-XII grossly intact Psych/Mental Status: Normal Affect, Appropriate, Alert and oriented to time, place, person, mood and affect Vital Signs Temp Pulse Resp BP Pulse Ox 98.1 F 78 18 109/66 95 09/01/18 07:40 09/01/18 07:40 09/01/18 07:40 09/01/18 07:40 09/01/18 07:40 Oxygen Delivery Method Room Air Weight: 74 kg Body Mass Index (BMI) 27.3 Intake and Output for Last 24 Hours 08/30/18 08/31/18 09/01/18 23:59 23:59 23:59 Intake Total 720 / 720 240 / 240 Balance 720 / 720 240 / 240 Active Medications Acetaminophen (Tylenol) 500 mg PO TID [facility] Last Admin: 09/01/18 06:12 Dose: 500 mg Amlodipine Besylate (Norvasc) 10 mg PO DAILY [facility] Last Admin: 09/01/18 07:42 Dose: 10 mg Ascorbic Acid (Vitamin C) [facility] Last Admin: 09/01/18 07:42 Dose: 250 mg Aspirin (Aspirin, Baby) [facility] Last Admin: 09/01/18 07:42 Dose: 81 mg Atorvastatin Calcium (Lipitor) 20 mg PO QHS [facility] Last Admin: 08/31/18 21:06 Dose: 20 mg Bisacodyl (Dulcolax) 10 mg RECTAL .PRN X 1 PRN PRN Reason: Constipation Cholecalciferol (Vitamin D) 2,000 unit PO DAILY [facility] Last Admin: 09/01/18 07:43 Dose: 2,000 unit Cyanocobalamin (Vitamin B12) 1,000 mcg PO DAILY [facility] Last Admin: 09/01/18 07:43 Dose: 1,000 mcg Enoxaparin Sodium (Lovenox) 40 mg SC DAILY@0600 [facility] Last Admin: 09/01/18 06:12 Dose: 40 mg Magnesium Hydroxide (Milk Of Magnesia) 30 ml PO .PRN X 1 PRN PRN Reason: Constipation Oxycodone HCl (Oxyir) 5 mg PO Q4H PRN PRN PRN Reason: MODERATE PAIN (4-5/10) Polyethylene Glycol (Miralax) 17 gm PO DAILY [facility] Last Admin: 09/01/18 07:43 Dose: 17 gm Polysaccharide Iron Complex (Ferrex 150) [facility] Last Admin: 09/01/18 07:44 Dose: 150 mg Senna/Docusate Sodium (Senokot-S, Holly-Colace) 2 tablet PO BID [facility] Last Admin: 09/01/18 07:43 Dose: 2 tablet Medical Necessity - Tobacco Use Smoking Status: Former smoker Assessment/Plan All Active Problems Femur fracture, right (Acute) Fracture, femur, distal (Acute) Holly-prosthetic femoral shaft fracture (Acute) Debility s/p right retrograde intramedullary nailing of an angulated displaced distal femoral shaft periprosthetic fracture. Complicated by HTN, and acute blood loss anemia. Goal of rehab is presybeterian of functional independence. Plan: - Physical therapy for gait and balance - Occupational Therapy for ADLs - Weight bearing status is Non-weight bearing with brace at all time for next two weeks, will be reassessed by Dr. Martines for new weight bearing status at that time. Obtain X-Rays of right femur prior to appointment. - As needed analgesics - Bowel protocol - Incision wound -> right retrograde intramedullary nailing of an angulated displaced distal femoral shaft periprosthetic fracture - Anemia 2/2 acute blood loss anemia following distal femur fracture and surgery. Patient did receive parenteral iron transfusion; discharged on oral iron - HX of HLD - Continue home dose of Statin - Hx of HTN - BP well controlled on home medications - DVT prophylaxis - Lovenox, SCDs,and Rene hoses on the Left only. - Fall Precautions
--- NOTE | 2018-09-01 10:41 | CASEMGMT ---
Team meeting held. Patient present as well as patient daughter. Collaborating with team, discharge date set for 09/05/18. Patient plans to discharge to home where patient lives in a 1-story apartment with daughter on the 2nd floor. Patient plans to return to [place], [place]. At this time no further therapy is being recommended. Patient is recommended to follow up with orthopeadic on when to begin therapy. Patient reporting to have all needed durable medical equipment needs already set up within the home. Support given. Will continue to follow. Yamileth VILLAGOMEZ, DIGESTER
--- NOTE | 2018-09-01 11:55 | NURSING ---
spoke with [facility] orthopedic office, dionna NICHOLAS will see pateint on 09/05 about lunch time before discharge home. xrays ordered for post op.
--- NOTE | 2018-09-01 17:19 | PCM.PN.HOSP ---
Patient Problems: Active and Suspected Problems Femur fracture, right (Acute) Subjective: Some pain, but relieved with Tylenol. Vitals/I&O's: Vital Signs Temp Pulse Resp BP Pulse Ox 36.7 C 78 18 109/66 95 09/01/18 07:40 09/01/18 07:40 09/01/18 07:40 09/01/18 07:40 09/01/18 07:40 Oxygen Delivery Method Room Air Weight: 74 kg Body Mass Index (BMI) 27.3 Intake and Output for Last 24 Hours 08/30/18 08/31/18 09/01/18 23:59 23:59 23:59 Intake Total 720 / 720 240 / 240 360 / 360 Balance 720 / 720 240 / 240 360 / 360 General: Alert, No apparent distress HEENT: Atraumatic, Normocephalic Oral: Moist Mucosa, No Gingival or Mucosal Lesions/ Ulcerations Lungs: Clear to auscultation, Normal air movement, No rhonchi, No wheeze Cardiovascular: Regular rate, Regular Rhythm, Normal S1, Normal S2, No murmurs Abdomen: Bowel Sounds Present, Soft, Non Tender, Non-Distended, No Hepato-splenomegaly Extremities: No edema, No Calf Tenderness Musculoskeletal: No Tenderness to Palpation of Joints or Extremities, No Muscle Wasting Psych/Mental Status: Normal Affect, Appropriate Current Medications Acetaminophen (Tylenol) 500 mg PO TID [facility] Last Admin: 09/01/18 14:21 Dose: 500 mg Amlodipine Besylate (Norvasc) 10 mg PO DAILY [facility] Last Admin: 09/01/18 07:42 Dose: 10 mg Ascorbic [facility] (Vitamin C) [facility] Admin: 09/01/18 07:42 Dose: 250 mg Aspirin (Aspirin, Baby) [facility] Last Admin: 09/01/18 07:42 Dose: 81 mg Atorvastatin Calcium (Lipitor) 20 mg PO QHS [facility] Last Admin: 08/31/18 21:06 Dose: 20 mg Bisacodyl (Dulcolax) 10 mg RECTAL .PRN X 1 PRN PRN Reason: Constipation Cholecalciferol (Vitamin D) 2,000 unit PO DAILY [facility] Last Admin: 09/01/18 07:43 Dose: 2,000 unit Cyanocobalamin (Vitamin B12) 1,000 mcg PO DAILY [facility] Last Admin: 09/01/18 07:43 Dose: 1,000 mcg Enoxaparin Sodium (Lovenox) 40 mg SC DAILY@0600 [facility] Last Admin: 09/01/18 06:12 Dose: 40 mg Magnesium Hydroxide (Milk Of Magnesia) 30 ml PO .PRN X 1 PRN PRN Reason: Constipation Oxycodone HCl (Oxyir) 5 mg PO Q4H PRN PRN PRN Reason: MODERATE PAIN (4-5/10) Polyethylene Glycol (Miralax) 17 gm PO DAILY [facility] Last Admin: 09/01/18 07:43 Dose: 17 gm Polysaccharide Iron Complex (Ferrex 150) 150 mg PO DAILYCM [facility] Last Admin: 09/01/18 07:44 Dose: 150 mg Senna/Docusate Sodium (Senokot-S, Holly-Colace) 2 tablet PO BID [facility] Last Admin: 09/01/18 07:43 Dose: 2 tablet Medical Necessity - Tobacco Use Smoking Status: Former smoker Assessment/Plan All Active Problems Femur fracture, right (Acute) Fracture, femur, distal (Acute) Holly-prosthetic femoral shaft fracture (Acute) 1. right distal femu periprosthetic fracture s/p ORIF (right retrograde intramedullary nailing) on 08/23 ortho to eval in Rehab later this week has immobilizer in place non-weight bearing until healing seen xray 2. DVT prophylaxis LMWH while NWB Code Visit Inpatient E&M: 37534 Subs Hosp L2
--- NOTE | 2018-09-01 17:27 | PN_ITS ---
Patient Problems: Active and Suspected Problems Femur fracture, right (Acute) Subjective: Some pain, but relieved with Tylenol. Vitals/I&O's: Vital Signs Temp Pulse Resp BP Pulse Ox 36.7 C 78 18 109/66 95 09/01/18 07:40 09/01/18 07:40 09/01/18 07:40 09/01/18 07:40 09/01/18 07:40 Oxygen Delivery Method Room Air Weight: 74 kg Body Mass Index (BMI) 27.3 Intake and Output for Last 24 Hours 08/30/18 08/31/18 09/01/18 23:59 23:59 23:59 Intake Total 720 / 720 240 / 240 360 / 360 Balance 720 / 720 240 / 240 360 / 360 General: Alert, No apparent distress HEENT: Atraumatic, Normocephalic Oral: Moist Mucosa, No Gingival or Mucosal Lesions/ Ulcerations Lungs: Clear to auscultation, Normal air movement, No rhonchi, No wheeze Cardiovascular: Regular rate, Regular Rhythm, Normal S1, Normal S2, No murmurs Abdomen: Bowel Sounds Present, Soft, Non Tender, Non-Distended, No Hepato- splenomegaly Extremities: No edema, No Calf Tenderness Musculoskeletal: No Tenderness to Palpation of Joints or Extremities, No Muscle Wasting Psych/Mental Status: Normal Affect, Appropriate Current Medications Acetaminophen (Tylenol) 500 mg PO TID [facility] Last Admin: 09/01/18 14:21 Dose: 500 mg Amlodipine Besylate (Norvasc) 10 mg PO DAILY [facility] Last Admin: 09/01/18 07:42 Dose: 10 mg [facility]orbic [facility] ([facility]itamin C) [facility] Admin: 09/01/18 07:42 Dose: 250 mg Aspirin (Aspirin, Baby) [facility] Last Admin: 09/01/18 07:42 Dose: 81 mg Atorvastatin Calcium (Lipitor) 20 mg PO QHS [facility] Last Admin: 08/31/18 21:06 Dose: 20 mg Bisacodyl (Dulcolax) 10 mg RECTAL .PRN X 1 PRN PRN Reason: Constipation Cholecalciferol (Vitamin D) 2,000 unit PO DAILY [facility] Last Admin: 09/01/18 07:43 Dose: 2,000 unit Cyanocobalamin (Vitamin B12) 1,000 mcg PO DAILY [facility] Last Admin: 09/01/18 07:43 Dose: 1,000 mcg Enoxaparin Sodium (Lovenox) 40 mg SC DAILY@0600 [facility] Last Admin: 09/01/18 06:12 Dose: 40 mg Magnesium Hydroxide (Milk Of Magnesia) 30 ml PO .PRN X 1 PRN PRN Reason: Constipation Oxycodone HCl (Oxyir) 5 mg PO Q4H PRN PRN PRN Reason: MODERATE PAIN (4-5/10) Polyethylene Glycol (Miralax) 17 gm PO DAILY [facility] Last Admin: 09/01/18 07:43 Dose: 17 gm Polysaccharide Iron Complex (Ferrex 150) 150 mg PO DAILYCM [facility] Last Admin: 09/01/18 07:44 Dose: 150 mg Senna/Docusate Sodium (Senokot-S, Holly-Colace) 2 tablet PO BID [facility] Last Admin: 09/01/18 07:43 Dose: 2 tablet Medical Necessity - Tobacco Use Smoking Status: Former smoker Assessment/Plan All Active Problems Femur fracture, right (Acute) Fracture, femur, distal (Acute) Holly-prosthetic femoral shaft fracture (Acute) 1. right distal femu periprosthetic fracture * s/p ORIF (right retrograde intramedullary nailing) on 08/23 * ortho to eval in Rehab later this week * has immobilizer in place * non-weight bearing until healing seen xray 2. DVT prophylaxis LMWH while NWB Code Visit Inpatient E&M: 69321 Subs Hosp L2
[2018-09-01 19:51] VITALS: BP 129/82; PULSE 84; RESP 16; TEMP 36.8; O2SAT 99
[2018-09-01] MEDS: Atorvastatin Calcium 20 MG Tablet PO (22:03)
[2018-09-02] MEDS: Acetaminophen 500 MG Tablet PO ×3 (06:49→20:49)
[2018-09-02] MEDS: Enoxaparin 40 MG/0.4 ML Syringe SC (06:49)
[2018-09-02 08:04] VITALS: BP 134/54; PULSE 85; RESP 16; TEMP 36.6; O2SAT 99
[2018-09-02] MEDS: Aspirin 81 MG TAB.CHEW PO (09:43)
[2018-09-02] MEDS: Cyanocobalamin 500 MCG Tablet 1000 MCG PO (09:43)
[2018-09-02] MEDS: Iron Polysaccharide Complex 150 MG CAPSULE PO (09:43)
[2018-09-02] MEDS: Ascorbic Acid 500 MG Tablet 250 MG PO (09:43)
[2018-09-02] MEDS: amLODIPine 10 MG Tablet PO (09:44)
--- NOTE | 2018-09-02 16:57 | PN.NEURO_ITS ---
Subjective: Tolerating therapy, pain well controlled on Tylenol. No new complaints. - Physical Exam General: Alert, Oriented x3, Cooperative HEENT: Atraumatic, PERRLA, EOMI, Normocephalic Neck: Supple, No JVD, Negative Carotid Bruits Lungs: Clear to auscultation, Normal air movement Cardiovascular: Regular rate, No murmurs Abdomen: Bowel Sounds Present, Soft, Non Tender Extremities: No edema, Capillary Refill Less than 3 Seconds Skin: No rashes, No breakdown Musculoskeletal: No Tenderness to Palpation of Joints or Extremities Neurological: Cranial nerves II-XII grossly intact Psych/Mental Status: Normal Affect, Appropriate, Alert and oriented to time, place, person, mood and affect Vital Signs Temp Pulse Resp BP Pulse Ox 97.8 F 85 16 134/54 H 99 09/02/18 08:04 09/02/18 08:04 09/02/18 08:04 09/02/18 08:04 09/02/18 08:04 Oxygen Delivery Method Room Air Weight: 74 kg Body Mass Index (BMI) 27.3 Intake and Output for Last 24 Hours 08/31/18 09/01/18 09/02/18 23:59 23:59 23:59 Intake Total 240 / 240 360 / 360 240 / 240 Balance 240 / 240 360 / 360 240 / 240 Active Medications Acetaminophen (Tylenol) 500 mg PO TID REPLACED BY [facility] Last Admin: 09/02/18 13:21 Dose: 500 mg Amlodipine Besylate (Norvasc) 10 mg PO DAILY REPLACED BY [facility] Last Admin: 09/02/18 09:44 Dose: 10 mg [facility]orbic [facility] Last Admin: 09/02/18 09:43 Dose: 250 mg Aspirin (Aspirin, Baby) [facility] Last Admin: 09/02/18 09:43 Dose: 81 mg Atorvastatin Calcium (Lipitor) 20 mg PO QHS REPLACED BY [facility] Last Admin: 09/01/18 22:03 Dose: 20 mg Bisacodyl (Dulcolax) 10 mg RECTAL .PRN X 1 PRN PRN Reason: Constipation Cholecalciferol (Vitamin D) 2,000 unit PO DAILY REPLACED BY [facility] Last Admin: 09/02/18 09:43 Dose: 2,000 unit Cyanocobalamin (Vitamin B12) 1,000 mcg PO DAILY REPLACED BY [facility] Last Admin: 09/02/18 09:43 Dose: 1,000 mcg Enoxaparin Sodium (Lovenox) 40 mg SC DAILY@0600 REPLACED BY [facility] Last Admin: 09/02/18 06:49 Dose: 40 mg Magnesium Hydroxide (Milk Of Magnesia) 30 ml PO .PRN X 1 PRN PRN Reason: Constipation Oxycodone HCl (Oxyir) 5 mg PO Q4H PRN PRN PRN Reason: MODERATE PAIN (4-5/10) Polyethylene Glycol (Miralax) 17 gm PO DAILY REPLACED BY [facility] Last Admin: 09/02/18 09:42 Dose: Not Given Polysaccharide Iron Complex (Ferrex 150) 150 mg PO DAILYCM REPLACED BY [facility] Last Admin: 09/02/18 09:43 Dose: 150 mg Senna/Docusate Sodium (Senokot-S, Holly-Colace) 2 tablet PO BID REPLACED BY [facility] Last Admin: 09/02/18 15:55 Dose: Not Given Medical Necessity - Tobacco Use Smoking Status: Former smoker Assessment/Plan All Active Problems Femur fracture, right (Acute) Fracture, femur, distal (Acute) Holly-prosthetic femoral shaft fracture (Acute) Debility s/p right retrograde intramedullary nailing of an angulated displaced distal femoral shaft periprosthetic fracture. Complicated by HTN, and acute blood loss anemia. Goal of rehab is taoism of functional independence. Plan: - Physical therapy for gait and balance - Occupational Therapy for ADLs - Weight bearing status is Non-weight bearing with brace at all time for next two weeks, will be reassessed by Dr. Martines for new weight bearing status at that time. Obtain X-Rays of right femur prior to appointment. - As needed analgesics - Bowel protocol - Incision wound -> right retrograde intramedullary nailing of an angulated displaced distal femoral shaft periprosthetic fracture - Anemia 2/2 acute blood loss anemia following distal femur fracture and surgery. Patient did receive parenteral iron transfusion; discharged on oral iron - HX of HLD - Continue home dose of Statin - Hx of HTN - BP well controlled on home medications - DVT prophylaxis - Lovenox, SCDs,and Rene hoses on the Left only. - Fall Precautions
[2018-09-02 20:20] VITALS: BP 116/72; PULSE 80; RESP 20; TEMP 36.6; O2SAT 97
[2018-09-02] MEDS: Atorvastatin Calcium 20 MG Tablet PO (20:49)
[2018-09-03] MEDS: Acetaminophen 500 MG Tablet PO ×3 (06:15→21:04)
[2018-09-03] MEDS: Enoxaparin 40 MG/0.4 ML Syringe SC (06:16)
[2018-09-03 07:01] VITALS: BP 112/68; PULSE 69; RESP 16; TEMP 36.9; O2SAT 99
[2018-09-03] MEDS: Ascorbic Acid 500 MG Tablet 250 MG PO (07:52)
[2018-09-03] MEDS: Iron Polysaccharide Complex 150 MG CAPSULE PO (07:52)
[2018-09-03] MEDS: Cyanocobalamin 500 MCG Tablet 1000 MCG PO (07:52)
[2018-09-03] MEDS: Aspirin 81 MG TAB.CHEW PO (07:52)
[2018-09-03] MEDS: amLODIPine 10 MG Tablet PO (07:53)
--- NOTE | 2018-09-03 08:00 | RAD_ITS ---
STUDY: X-RAY - PELVIS REASON FOR EXAM: Female, 68 years old. Fractured distal femur on August 23. History of previous knee replacement. Surgical repair, August 24. TECHNIQUE: One view of the pelvis was obtained. COMPARISON: None. FINDINGS: There is a non-specific bowel gas pattern. Normal visualized soft tissue structures. There are atherosclerotic vascular calcifications. Normal bilateral iliac wings, sacroiliac joints and visualized sacrum. Normal visualized bilateral superior and inferior pubic rami. Normal pubic symphysis. Normal ischial tuberosities. Normal visualized right femoral head. Normal right acetabulum. There is mild articular joint space narrowing of the right hip. Normal visualized left femoral head. Normal left acetabulum. There is mild articular joint space narrowing of the left hip. RAD/Pelvis 1 or 2 Views IMPRESSION: Mild degenerative changes of the bilateral hips. Electronically Signed: Maxx Lockett DO at 21:14 EDT Tel [phone], Service support ,
--- NOTE | 2018-09-03 08:15 | RAD_ITS ---
STUDY: X-RAY - RIGHT FEMUR REASON FOR STUDY: Female, 68 years old. Fractured femur on August 23. Previous knee replacement. Surgical repair, August 24, 2018. TECHNIQUE: Radiological exam, femur, minimum 2 views COMPARISON: August 23, 2018. FINDINGS: There is now an intramedullary bob in the distal femoral shaft which extends down to the femoral component of the knee replacement are transfixing cortical screws. The distal femoral fracture is in grossly normal anatomic alignment.. The knee prosthesis appears intact without gross abnormality. There is a suprapatellar joint effusion. There is midline surgical clips below and lateral to the knee as well as laterally along the upper thigh. RAD/Femur Min 2 Views IMPRESSION: Status post internal fixation of a distal femoral fracture. Electronically Signed: Maxx Lockett DO at 21:18 EDT Tel [phone], Service support ,
--- NOTE | 2018-09-03 09:56 | PCM.PN.NEU ---
Subjective: Patient seen and examined. No new complaints. Tolerating therapy, pain well controlled. Incision site is C/D/I, no drainage noted. Pelvic and Femur x-rays was done this morning in preparation for discharge and appointment with Dr. Martines on Saturday. - Physical Exam General: Alert, Oriented x3, Cooperative HEENT: Atraumatic, PERRLA, EOMI, Normocephalic Neck: Supple, No JVD, Negative Carotid Bruits Lungs: Clear to auscultation, Normal air movement Cardiovascular: Regular rate, No murmurs Abdomen: Bowel Sounds Present, Soft, Non Tender Extremities: No edema, Capillary Refill Less than 3 Seconds Skin: No rashes, No breakdown Musculoskeletal: No Tenderness to Palpation of Joints or Extremities Neurological: Cranial nerves II-XII grossly intact Psych/Mental Status: Normal Affect, Appropriate, Alert and oriented to time, place, person, mood and affect Vital Signs Temp Pulse Resp BP Pulse Ox 98.5 F 69 16 112/68 99 09/03/18 07:01 09/03/18 07:01 09/03/18 07:01 09/03/18 07:01 09/03/18 07:01 Oxygen Delivery Method Room Air Weight: 74 kg Body Mass Index (BMI) 27.3 Intake and Output for Last 24 Hours 09/01/18 09/02/18 09/03/18 23:59 23:59 23:59 Intake Total 360 / 360 240 / 240 Balance 360 / 360 240 / 240 Active Medications Acetaminophen (Tylenol) 500 mg PO TID [facility] Last Admin: 09/03/18 06:15 Dose: 500 mg Amlodipine Besylate (Norvasc) 10 mg PO DAILY [facility] Last Admin: 09/03/18 07:53 Dose: 10 mg Ascorbic Acid (Vitamin C) 250 mg PO DAILYCM [facility] Last Admin: 09/03/18 07:52 Dose: 250 mg Aspirin (Aspirin, Baby) 81 mg PO DAILYCM [facility] Last Admin: 09/03/18 07:52 Dose: 81 mg Atorvastatin Calcium (Lipitor) 20 mg PO QHS [facility] Last Admin: 09/02/18 20:49 Dose: 20 mg Bisacodyl (Dulcolax) 10 mg RECTAL .PRN X 1 PRN PRN Reason: Constipation Cholecalciferol (Vitamin D) 2,000 unit PO DAILY [facility] Last Admin: 09/03/18 07:52 Dose: 2,000 unit Cyanocobalamin (Vitamin B12) 1,000 mcg PO DAILY [facility] Last Admin: 09/03/18 07:52 Dose: 1,000 mcg Enoxaparin Sodium (Lovenox) 40 mg SC DAILY@0600 [facility] Last Admin: 09/03/18 06:16 Dose: 40 mg Magnesium Hydroxide (Milk Of Magnesia) 30 ml PO .PRN X 1 PRN PRN Reason: Constipation Oxycodone HCl (Oxyir) 5 mg PO Q4H PRN PRN PRN Reason: MODERATE PAIN (4-5/10) Polyethylene Glycol (Miralax) 17 gm PO DAILY [facility] Last Admin: 09/03/18 07:52 Dose: Not Given Polysaccharide Iron Complex (Ferrex 150) 150 mg PO DAILYCM [facility] Last Admin: 09/03/18 07:52 Dose: 150 mg Senna/Docusate Sodium (Senokot-S, Holly-Colace) 2 tablet PO BID [facility] Last Admin: 09/03/18 07:53 Dose: Not Given Medical Necessity - Tobacco Use Smoking Status: Former smoker Assessment/Plan All Active Problems Femur fracture, right (Acute) Fracture, femur, distal (Acute) Holly-prosthetic femoral shaft fracture (Acute) Debility s/p right retrograde intramedullary nailing of an angulated displaced distal femoral shaft periprosthetic fracture. Complicated by HTN, and acute blood loss anemia. Goal of rehab is sikhism of functional independence. Plan: - Physical therapy for gait and balance - Occupational Therapy for ADLs - Weight bearing status is Non-weight bearing with brace at all time for next two weeks, will be reassessed by Dr. Martines for new weight bearing status at that time. Obtain X-Rays of right femur prior to appointment. - As needed analgesics - Bowel protocol - Incision wound -> right retrograde intramedullary nailing of an angulated displaced distal femoral shaft periprosthetic fracture - Anemia 2/2 acute blood loss anemia following distal femur fracture and surgery. Patient did receive parenteral iron transfusion; discharged on oral iron - HX of HLD - Continue home dose of Statin - Hx of HTN - BP well controlled on home medications - DVT prophylaxis - Lovenox, SCDs,and Rene hoses on the Left only. - Fall Precautions - X-rays of Femur and Pelvic done in preparation for discharge and appointment with Dr. Martines - Plan is for discharge Jesus 10/19 home, Therapy will be determined by Orthopedic surgeon Dr. Martines.
--- NOTE | 2018-09-03 10:00 | PN.NEURO_ITS ---
Subjective: Patient seen and examined. No new complaints. Tolerating therapy, pain well controlled. Incision site is C/D/I, no drainage noted. Pelvic and Femur x-rays was done this morning in preparation for discharge and appointment with Dr. Martines on Saturday. - Physical Exam General: Alert, Oriented x3, Cooperative HEENT: Atraumatic, PERRLA, EOMI, Normocephalic Neck: Supple, No JVD, Negative Carotid Bruits Lungs: Clear to auscultation, Normal air movement Cardiovascular: Regular rate, No murmurs Abdomen: Bowel Sounds Present, Soft, Non Tender Extremities: No edema, Capillary Refill Less than 3 Seconds Skin: No rashes, No breakdown Musculoskeletal: No Tenderness to Palpation of Joints or Extremities Neurological: Cranial nerves II-XII grossly intact Psych/Mental Status: Normal Affect, Appropriate, Alert and oriented to time, place, person, mood and affect Vital Signs Temp Pulse Resp BP Pulse Ox 98.5 F 69 16 112/68 99 09/03/18 07:01 09/03/18 07:01 09/03/18 07:01 09/03/18 07:01 09/03/18 07:01 Oxygen Delivery Method Room Air Weight: 74 kg Body Mass Index (BMI) 27.3 Intake and Output for Last 24 Hours 09/01/18 09/02/18 09/03/18 23:59 23:59 23:59 Intake Total 360 / 360 240 / 240 Balance 360 / 360 240 / 240 Active Medications Acetaminophen (Tylenol) 500 mg PO TID [facility] Last Admin: 09/03/18 06:15 Dose: 500 mg Amlodipine Besylate (Norvasc) 10 mg PO DAILY [facility] Last Admin: 09/03/18 07:53 Dose: 10 mg Ascorbic Acid (Vitamin C) 250 mg PO DAILYCM [facility] Last Admin: 09/03/18 07:52 Dose: 250 mg Aspirin (Aspirin, Baby) 81 mg PO DAILYCM [facility] Last Admin: 09/03/18 07:52 Dose: 81 mg Atorvastatin Calcium (Lipitor) 20 mg PO QHS [facility] Last Admin: 09/02/18 20:49 Dose: 20 mg Bisacodyl (Dulcolax) 10 mg RECTAL .PRN X 1 PRN PRN Reason: Constipation Cholecalciferol (Vitamin D) 2,000 unit PO DAILY [facility] Last Admin: 09/03/18 07:52 Dose: 2,000 unit Cyanocobalamin (Vitamin B12) 1,000 mcg PO DAILY [facility] Last Admin: 09/03/18 07:52 Dose: 1,000 mcg Enoxaparin Sodium (Lovenox) 40 mg SC DAILY@0600 [facility] Last Admin: 09/03/18 06:16 Dose: 40 mg Magnesium Hydroxide (Milk Of Magnesia) 30 ml PO .PRN X 1 PRN PRN Reason: Constipation Oxycodone HCl (Oxyir) 5 mg PO Q4H PRN PRN PRN Reason: MODERATE PAIN (4-5/10) Polyethylene Glycol (Miralax) 17 gm PO DAILY [facility] Last Admin: 09/03/18 07:52 Dose: Not Given Polysaccharide Iron Complex (Ferrex 150) 150 mg PO DAILYCM [facility] Last Admin: 09/03/18 07:52 Dose: 150 mg Senna/Docusate Sodium (Senokot-S, Holly-Colace) 2 tablet PO BID [facility] Last Admin: 09/03/18 07:53 Dose: Not Given Medical Necessity - Tobacco Use Smoking Status: Former smoker Assessment/Plan All Active Problems Femur fracture, right (Acute) Fracture, femur, distal (Acute) Holly-prosthetic femoral shaft fracture (Acute) Debility s/p right retrograde intramedullary nailing of an angulated displaced distal femoral shaft periprosthetic fracture. Complicated by HTN, and acute blood loss anemia. Goal of rehab is hoahaoism of functional independence. Plan: - Physical therapy for gait and balance - Occupational Therapy for ADLs - Weight bearing status is Non-weight bearing with brace at all time for next two weeks, will be reassessed by Dr. Martines for new weight bearing status at that time. Obtain X-Rays of right femur prior to appointment. - As needed analgesics - Bowel protocol - Incision wound -> right retrograde intramedullary nailing of an angulated displaced distal femoral shaft periprosthetic fracture - Anemia 2/2 acute blood loss anemia following distal femur fracture and surgery. Patient did receive parenteral iron transfusion; discharged on oral iron - HX of HLD - Continue home dose of Statin - Hx of HTN - BP well controlled on home medications - DVT prophylaxis - Lovenox, SCDs,and Rene hoses on the Left only. - Fall Precautions - X-rays of Femur and Pelvic done in preparation for discharge and appointment with Dr. Martines - Plan is for discharge Jesus 10/19 home, Therapy will be determined by Orthopedic surgeon Dr. Martines.
--- NOTE | 2018-09-03 11:23 | NURSING ---
patient mod i with walker, gait steady.
[2018-09-03] MEDS: Atorvastatin Calcium 20 MG Tablet PO (21:06)
[2018-09-03 21:15] VITALS: BP 123/77; PULSE 87; RESP 18; TEMP 36.8; O2SAT 99
[2018-09-04] MEDS: Enoxaparin 40 MG/0.4 ML Syringe SC (06:01)
[2018-09-04] MEDS: Acetaminophen 500 MG Tablet PO ×3 (06:01→21:17)
[2018-09-04 07:54] VITALS: BP 129/75; PULSE 77; RESP 16; TEMP 36.8; O2SAT 100
[2018-09-04] MEDS: Ascorbic Acid 500 MG Tablet 250 MG PO (09:27)
[2018-09-04] MEDS: Iron Polysaccharide Complex 150 MG CAPSULE PO (09:27)
[2018-09-04] MEDS: Cyanocobalamin 500 MCG Tablet 1000 MCG PO (09:27)
[2018-09-04] MEDS: amLODIPine 10 MG Tablet PO (09:27)
[2018-09-04] MEDS: Aspirin 81 MG TAB.CHEW PO (09:27)
--- NOTE | 2018-09-04 10:31 | PCM.PN.NEU ---
Subjective: Patient seen, no new complaints. Tolerating therapy, anticipating discharge tomorrow. Ortho scheduled to see patient later today concerning weight bearing status. The plan is for discharge on Saturday, 09/05. - Physical Exam General: Alert, Oriented x3, Cooperative HEENT: Atraumatic, PERRLA, EOMI, Normocephalic Neck: Supple, No JVD, Negative Carotid Bruits Lungs: Clear to auscultation, Normal air movement Cardiovascular: Regular rate, No murmurs Abdomen: Bowel Sounds Present, Soft, Non Tender Extremities: No edema, Capillary Refill Less than 3 Seconds Skin: No rashes, No breakdown Musculoskeletal: No Tenderness to Palpation of Joints or Extremities Neurological: Cranial nerves II-XII grossly intact Psych/Mental Status: Normal Affect, Appropriate Vital Signs Temp Pulse Resp BP Pulse Ox 98.2 F 77 16 129/75 H 100 09/04/18 07:54 09/04/18 07:54 09/04/18 07:54 09/04/18 07:54 09/04/18 07:54 Oxygen Delivery Method Room Air Weight: 75.2 kg Body Mass Index (BMI) 27.3 Intake and Output for Last 24 Hours 09/02/18 09/03/18 09/04/18 23:59 23:59 23:59 Intake Total 240 / 240 240 / 240 Balance 240 / 240 240 / 240 Medical Necessity - Tobacco Use Smoking Status: Former smoker Assessment/Plan All Active Problems Femur fracture, right (Acute) Fracture, femur, distal (Acute) Holly-prosthetic femoral shaft fracture (Acute)
--- NOTE | 2018-09-04 10:36 | PN.NEURO_ITS ---
Addendum entered and electronically signed by AARON Gold 09/04/18 10:39: Debility s/p right retrograde intramedullary nailing of an angulated displaced distal femoral shaft periprosthetic fracture. Complicated by HTN, and acute blood loss anemia. Goal of rehab is church of functional independence. Plan: - Physical therapy for gait and balance - Occupational Therapy for ADLs - Weight bearing status is Non-weight bearing with brace at all time for next two weeks, will be reassessed by Dr. Martines for new weight bearing status at that time. Obtain X-Rays of right femur prior to appointment. - As needed analgesics - Bowel protocol - Incision wound -> right retrograde intramedullary nailing of an angulated displaced distal femoral shaft periprosthetic fracture - Anemia 2/2 acute blood loss anemia following distal femur fracture and surgery. Patient did receive parenteral iron transfusion; discharged on oral iron - HX of HLD - Continue home dose of Statin - Hx of HTN - BP well controlled on home medications - DVT prophylaxis - Lovenox, SCDs,and Rene hoses on the Left only. - Fall Precautions - X-rays of Femur and Pelvic done in preparation for discharge and appointment with Dr. Martines - Plan is for discharge Wednesday 09/05 home, Therapy will be determined by Orthopedic surgeon Dr. Martines. Original Note: Subjective: Patient seen, no new complaints. Tolerating therapy, anticipating discharge tomorrow. Ortho scheduled to see patient later today concerning weight bearing status. The plan is for discharge on Saturday, 09/05. - Physical Exam General: Alert, Oriented x3, Cooperative HEENT: Atraumatic, PERRLA, EOMI, Normocephalic Neck: Supple, No JVD, Negative Carotid Bruits Lungs: Clear to auscultation, Normal air movement Cardiovascular: Regular rate, No murmurs Abdomen: Bowel Sounds Present, Soft, Non Tender Extremities: No edema, Capillary Refill Less than 3 Seconds Skin: No rashes, No breakdown Musculoskeletal: No Tenderness to Palpation of Joints or Extremities Neurological: Cranial nerves II-XII grossly intact Psych/Mental Status: Normal Affect, Appropriate Vital Signs Temp Pulse Resp BP Pulse Ox 98.2 F 77 16 129/75 H 100 09/04/18 07:54 09/04/18 07:54 09/04/18 07:54 09/04/18 07:54 09/04/18 07:54 Oxygen Delivery Method Room Air Weight: 75.2 kg Body Mass Index (BMI) 27.3 Intake and Output for Last 24 Hours 09/02/18 09/03/18 09/04/18 23:59 23:59 23:59 Intake Total 240 / 240 240 / 240 Balance 240 / 240 240 / 240 Medical Necessity - Tobacco Use Smoking Status: Former smoker Assessment/Plan All Active Problems Femur fracture, right (Acute) Fracture, femur, distal (Acute) Holly-prosthetic femoral shaft fracture (Acute)
--- NOTE | 2018-09-04 12:04 | PCM.PN.ORT ---
Subjective: Patient states that she has been doing very well and is very pleased with her recovery thus far. She states that she has hardly had any pains at this time. She has been going to therapy as directed and states that she feels she is getting stronger in her leg being able to do quad sets now fairly easily. She states that she has seen swelling improve. She denies any numbness or tingling in the leg. She does admit to having calf and ankle pains (pain on palpation and with ankle movement.) - Physical Exam General: Alert, Oriented x3, Cooperative, Well developed, Well nourished Oral: Moist Mucosa Extremities: Edema - some minor generalized edema around the anterior knee, Tenderness - she has moderate to sever pains with palpation of the calf with guarding / resistance. She does have Pain with Homans. Skin: No rashes, No breakdown, Incision - Incisions sites are clean and dry without any erythema, inflammation, or discharge. Yancy are still in place with good approximation and adherence. Musculoskeletal: Tenderness - she has some minor tenderness on the anterior knee. She does not have tenderness at the distal femur which is where the fracture is located. Psych/Mental Status: Normal Affect, Appropriate Vital Signs Temp Pulse Resp BP Pulse Ox 98.2 F 77 16 129/75 H 100 09/04/18 07:54 09/04/18 07:54 09/04/18 07:54 09/04/18 07:54 09/04/18 07:54 Oxygen Delivery Method Room Air Weight: 165 lb 12.602 oz Body Mass Index (BMI) 27.3 Intake and Output for Last 24 Hours 09/02/18 09/03/18 09/04/18 23:59 23:59 23:59 Intake Total 240 / 240 240 / 240 Balance 240 / 240 240 / 240 Medical Necessity - Tobacco Use Smoking Status: Former smoker Assessment/Plan All Active Problems Femur fracture, right (Acute) Fracture, femur, distal (Acute) Holly-prosthetic femoral shaft fracture (Acute) At this time patient is 2 weeks post operative from retrograde femoral nail placement for distal femur fracture. She is doing very well and has no concerns or complaints today. Her incision sites are healing great without any signs of infection. We will have nursing go ahead and remove the yancy today and can apply some steri-strips at the sites. X-rays were reviewed with patient today which she nearly anatomic alignment of the fracture site and hardware in place without any abnormalities. There is not really any noticeable callus formation at the site today. Patient is to continue be in the brace at all times. The brace is to be locked in extension when she is up at the same time she is to be non-weight bearing still due to limited callus formation. Will advance to TTWB in a few weeks under PT guidance. She is able to unlock the brace allowing passive flexion (gravity assisted) to 90 degrees while seated, but again needs to be locked in extension when up. We are going to order a doppler to be done before she leaves the hospital due to her calf pains. It is very possible this is due to being locked in extension for the past two weeks but need to rule out DVT. She is going to need to continue physical therapy at home and is going need to find where she wants to go and will have to get an order to them. She will f/u in 1 month to have repeat x-rays to check the fracture and hardware. She is to continue to monitor incision sites for signs of infection including erythema, inflammation, discharge, or increased pains. She is to notify the office with any of these signs.
--- NOTE | 2018-09-04 12:25 | VDLE_ITS ---
Reason For Study: RLE Pain RIGHT LEFT GSV is normal. CFV is compressible, spontaneous, phasic, CFV is compressible, spontaneous, phasic, competent, and demonstrates normal competent and demonstrates normal augmentation. augmentation. FV is compressible, spontaneous, phasic, competent and demonstrates normal augmentation. POP V is compressible, spontaneous, phasic, competent and demonstrates normal augmentation. T/P Trunk is compressible. PTV is compressible. RT PerV is compressible. Procedure Exam performed portable in patient room. A preliminary report was called and/or faxed to [facility] Nurse. Interpretation Summary There is no evidence of right lower extremity deep vein thrombosis. Right greater saphenous vein appears patent and compressible segmentally. Normal flow patterns left common femoral vein Ordering Physician: Magdi Petit Performed By: Hanna Deshpande RVT and Student
--- NOTE | 2018-09-04 14:06 | CASEMGMT ---
Social Work Spoke with team, team is now recommending for patient to discharge to home with continued physical therapy through home health care. Spoke with patient in room. Patient is agreeable to above recommendation and requesting for home health services to be set up through [facility] Patient also reporting to need a walker at time of discharge. Patient does not have a preference of [employer] to be utilized. Patient daughter plans to provide transportation home for patient at time of discharge. Support given. Telephone call to [facility], Referral made for physical therapy. Clinical information faxed. Will fax discharge instructions when obtained. Telephone call to [facility]. This social sciences professor making referral for wheelchair. [facility] reporting to be able to supply wheelchair even though resident is discharging to [place], [place]. Order faxed. [facility] to have wheelchair delivered to patient room prior to discharge. Proposed discharge date: 09/05/18 PLAN: Discharge to home with home health services and daughter. Yamileth VILLAGOMEZ, HOUSEKEEPING ASSOCIATE
[2018-09-04 19:49] VITALS: BP 111/61; PULSE 89; RESP 16; TEMP 36.7; O2SAT 98
[2018-09-04] MEDS: Atorvastatin Calcium 20 MG Tablet PO (21:17)
[2018-09-05] MEDS: Acetaminophen 500 MG Tablet PO ×2 (06:10→13:57)
[2018-09-05] MEDS: Enoxaparin 40 MG/0.4 ML Syringe SC (06:11)
[2018-09-05 08:00] VITALS: BP 130/70; PULSE 84; RESP 16; TEMP 36.6; O2SAT 97
[2018-09-05] MEDS: amLODIPine 10 MG Tablet PO (08:28)
[2018-09-05] MEDS: Cyanocobalamin 500 MCG Tablet 1000 MCG PO (08:28)
[2018-09-05] MEDS: Ascorbic Acid 500 MG Tablet 250 MG PO (08:29)
[2018-09-05] MEDS: Iron Polysaccharide Complex 150 MG CAPSULE PO (08:30)
[2018-09-05] MEDS: Aspirin 81 MG TAB.CHEW PO (08:30)
--- NOTE | 2018-09-05 09:05 | PCM.RU.DC ---
Rehab Discharge Summary DATE OF ADMISSION: 08/25/18 DATE OF DISCHARGE: 09/05/2018 - Rehab Diagnosis Right Femur Fracture - Physical Exam General: Alert, Oriented x3, Cooperative HEENT: Atraumatic, PERRLA, EOMI, Normocephalic Neck: Supple, No JVD, Negative Carotid Bruits Lungs: Clear to auscultation, Normal air movement Cardiovascular: Regular rate, No murmurs Abdomen: Bowel Sounds Present, Soft, Non Tender Extremities: No edema, Capillary Refill Less than 3 Seconds Skin: No rashes, No breakdown Musculoskeletal: No Tenderness to Palpation of Joints or Extremities Neurological: Cranial nerves II-XII grossly intact Psych/Mental Status: Normal Affect, Appropriate, Alert and oriented to time, place, person, mood and affect Vital Signs Temp Pulse Resp BP Pulse Ox 98.1 F 89 16 111/61 98 09/04/18 19:49 09/04/18 19:49 09/04/18 19:49 09/04/18 19:49 09/04/18 19:49 Oxygen Delivery Method Room Air Weight: 75.2 kg Body Mass Index (BMI) 27.3 Intake and Output for Last 24 Hours 09/03/18 09/04/18 09/05/18 23:59 23:59 23:59 Intake Total 480 / 480 Balance 480 / 480 Active Medications Acetaminophen (Tylenol) 500 mg PO TID [facility] Last Admin: 09/05/18 06:10 Dose: 500 mg Amlodipine Besylate (Norvasc) 10 mg PO DAILY [facility] Last Admin: 09/05/18 08:28 Dose: 10 mg [facility] Admin: 09/05/18 08:29 Dose: 250 mg Aspirin (Aspirin, Baby) [facility] Last Admin: 09/05/18 08:30 Dose: 81 mg Atorvastatin Calcium (Lipitor) 20 mg PO QHS [facility] Last Admin: 09/04/18 21:17 Dose: 20 mg Bisacodyl (Dulcolax) 10 mg RECTAL .PRN X 1 PRN PRN Reason: Constipation Cholecalciferol (Vitamin D) 2,000 unit PO DAILY [facility] Last Admin: 09/05/18 08:28 Dose: 2,000 unit Cyanocobalamin (Vitamin B12) 1,000 mcg PO DAILY [facility] Last Admin: 09/05/18 08:28 Dose: 1,000 mcg Enoxaparin Sodium (Lovenox) 40 mg SC DAILY@0600 [facility] Last Admin: 09/05/18 06:11 Dose: 40 mg Magnesium Hydroxide (Milk Of Magnesia) 30 ml PO .PRN X 1 PRN PRN Reason: Constipation Oxycodone HCl (Oxyir) 5 mg PO Q4H PRN PRN PRN Reason: MODERATE PAIN (4-5/10) Polyethylene Glycol (Miralax) 17 gm PO DAILY [facility] Last Admin: 09/05/18 08:31 Dose: Not Given Polysaccharide Iron Complex (Ferrex 150) 150 mg PO DAILYCM [facility] Last Admin: 09/05/18 08:30 Dose: 150 mg Senna/Docusate Sodium (Senokot-S, Holly-Colace) 2 tablet PO BID [facility] Last Admin: 09/05/18 08:31 Dose: Not Given Discharge Diet: No Restrictions Discharge Activity: May Not Drive, May Shower - make sure the brace is well covered when showering, Use Walker - Non-weight bearing to the right leg may hop using Left leg only, - - Do not soak in a Tub bath until cleared by Ortho Weight Bearing Status: No weight bearing Keep extremity elevated above heart level: Right Leg Call your doctor if your incision/area has: Increased Pain/ Swelling, Increased Redness, Foul Smelling Discharge, Swelling at the incision site Call your doctor if you observe: Fever of 101 or Higher, Coldness, Increased Pain, Numbness or Tingling, Change in Color, Inability to urinate, Inability to have a bowel movement, Using more than one pad per hour, Shortness of breath, Dizziness, Fainting spells, Swelling in the ankles, Chest pain, Prolonged hiccoughing, Increased palpitations (irregular heartbeat), Calf discomfort, Uncontrolled pain Home Medications: Medications to take at Discharge Acetaminophen 500 mg PO TID 08/22/18 Aspirin 81 mg PO DAILY 08/22/18 Amlodipine [Norvasc] 10 mg PO DAILY #30 tablet 09/05/18 Ascorbic Acid [Vitamin C] 250 mg PO DAILYCM #30 tablet 09/05/18 Atorvastatin Calcium [Lipitor] 20 mg PO QHS #30 tablet 09/05/18 Cholecalciferol (Vitamin D3) [Vitamin D3] 2,000 unit PO DAILY #30 capsule 09/05/18 Cyanocobalamin (Vitamin B-12) [Vitamin B-12] 1,000 mcg PO DAILY #30 capsule 09/05/18 Iron Polysaccharide Complex [Ferrex 150] 150 mg PO DAILYCM #30 capsule 09/05/18 Following Prescrptions Were Given to Patient: Amlodipine [Norvasc] 10 mg PO DAILY #30 tablet Ascorbic Acid [Vitamin C] 250 mg PO DAILYCM #30 tablet Atorvastatin Calcium [Lipitor] 20 mg PO QHS #30 tablet Cholecalciferol (Vitamin D3) [Vitamin D3] 2,000 unit PO DAILY #30 capsule Cyanocobalamin (Vitamin B-12) [Vitamin B-12] 1,000 mcg PO DAILY #30 capsule Iron Polysaccharide Complex [Ferrex 150] 150 mg PO DAILYCM #30 capsule Primary Care Physician: Care Physician,No Primary [Primary Care Provider] - Please Follow Up With: Primary Care Physician Please Follow Up With: [facility] - Physical thearpy Disposition: Home with Home Health Minutes spent on discharge:: 40 Patient Condition:: Good Rehab Course The patient is a 68 year old Female who is admitted to the rehab unit for rehabilitation after suffering a mechanical fall on her back deck. She has a pass medical history of HTN, HLD, Arthritis. According to the patient the deck was slightly wet, and at the time she was wearing flip flops, when she slipped trapping her right leg behind her. An X-ray showed an acute angulated displaced fracture of the distal femoral diaphysis. She was taken to the OR by Dr. Martines on where a right retrograde femoral nailing for periprosthetic distal femur fracture was preformed with out complications. Patient received Ancef postop for 24 hours, she is Non-weightbearing with brace at all time to the right leg for at least 2 weeks until cleared by Dr. Martines. She also sustained a bruise at her right posterior forearm; and a small wound at the right medial ankle. She lives alone, in an apartment, in [place]. The plan is for her to go home with her youngest daughter would lives here in [place], until she is ready to return home. She was previously completely functionally independent and is admitted to the rehab unit in order to restore her previous level of functional independence. Summary of care: Debility s/p right retrograde intramedullary nailing of an angulated displaced distal femoral shaft periprosthetic fracture. Complicated by HTN, and acute blood loss anemia. Goal of rehab is quaker of functional independence. - Physical therapy for gait and balance - Occupational Therapy for ADLs - Weight bearing status is Non-weight bearing with brace at all time for next two weeks, will be reassessed by Dr. Martines for new weight bearing status at that time. Obtain X-Rays of right femur prior to appointment. - As needed analgesics - Bowel protocol - Incision wound -> right retrograde intramedullary nailing of an angulated displaced distal femoral shaft periprosthetic fracture - Anemia 2/2 acute blood loss anemia following distal femur fracture and surgery. Patient did receive parenteral iron transfusion; discharged on oral iron - HX of HLD - Continue home dose of Statin - Hx of HTN - BP well controlled on home medications - DVT prophylaxis - Lovenox, SCDs,and Rene hoses on the Left only. - Fall Precautions - X-rays of Femur and Pelvic done in preparation for discharge and appointment with Dr. Martines -> X-rays reviewed by Ortho team, patient will remain in brace at all times, will maintain Non-weight bearing status until cleared by Ortho in 1 month with follow up X-rays. - Plan is for discharge Wednesday 09/05 home, with Home health, Physical therapy. - Pain in right calf and ankle - Doppler US obtained => Doppler was negative for DVT With Physical therapy, she is able to get in and out of bed at stand by assist. She is hopping using the left leg 2/2 NWBT on the right 25 feet using a walker. They have simulated a step by having her hop onto a platform the same height as the entryway into her home, at stand by assist. With Occupational therapy, she is able to do all her own self care at set up level, for showers they wrap her leg so that she is able to take a shower using a shower chair. They have worked on wheelchair mobility which she is doing well. With Nursing her pain is well controlled, she does not require pain medication, only the occasional Tylenol. Her incision site is C/D/I, and well approximated, there is no swelling, or redness noted to the site. Meaningful Use Info Meaningful Use Diagnoses (Choose all that apply): None applicable
--- NOTE | 2018-09-05 09:10 | DS.PCM_ITS ---
Rehab Discharge Summary DATE OF ADMISSION: 08/25/18 DATE OF DISCHARGE: 09/05/2018 - Rehab Diagnosis Right Femur Fracture - Physical Exam General: Alert, Oriented x3, Cooperative HEENT: Atraumatic, PERRLA, EOMI, Normocephalic Neck: Supple, No JVD, Negative Carotid Bruits Lungs: Clear to auscultation, Normal air movement Cardiovascular: Regular rate, No murmurs Abdomen: Bowel Sounds Present, Soft, Non Tender Extremities: No edema, Capillary Refill Less than 3 Seconds Skin: No rashes, No breakdown Musculoskeletal: No Tenderness to Palpation of Joints or Extremities Neurological: Cranial nerves II-XII grossly intact Psych/Mental Status: Normal Affect, Appropriate, Alert and oriented to time, place, person, mood and affect Vital Signs Temp Pulse Resp BP Pulse Ox 98.1 F 89 16 111/61 98 09/04/18 19:49 09/04/18 19:49 09/04/18 19:49 09/04/18 19:49 09/04/18 19:49 Oxygen Delivery Method Room Air Weight: 75.2 kg Body Mass Index (BMI) 27.3 Intake and Output for Last 24 Hours 09/03/18 09/04/18 09/05/18 23:59 23:59 23:59 Intake Total 480 / 480 Balance 480 / 480 Active Medications Acetaminophen (Tylenol) 500 mg PO TID [facility] Last Admin: 09/05/18 06:10 Dose: 500 mg Amlodipine Besylate (Norvasc) 10 mg PO DAILY [facility] Last Admin: 09/05/18 08:28 Dose: 10 mg [facility]orbic [facility]itamin C) [facility] Last Admin: 09/05/18 08:29 Dose: 250 mg Aspirin (Aspirin, Baby) [facility] Last Admin: 09/05/18 08:30 Dose: 81 mg Atorvastatin Calcium (Lipitor) 20 mg PO QHS [facility] Last Admin: 09/04/18 21:17 Dose: 20 mg Bisacodyl (Dulcolax) 10 mg RECTAL .PRN X 1 PRN PRN Reason: Constipation Cholecalciferol (Vitamin D) 2,000 unit PO DAILY [facility] Last Admin: 09/05/18 08:28 Dose: 2,000 unit Cyanocobalamin (Vitamin B12) 1,000 mcg PO DAILY [facility] Last Admin: 09/05/18 08:28 Dose: 1,000 mcg Enoxaparin Sodium (Lovenox) 40 mg SC DAILY@0600 [facility] Last Admin: 09/05/18 06:11 Dose: 40 mg Magnesium Hydroxide (Milk Of Magnesia) 30 ml PO .PRN X 1 PRN PRN Reason: Constipation Oxycodone HCl (Oxyir) 5 mg PO Q4H PRN PRN PRN Reason: MODERATE PAIN (4-5/10) Polyethylene Glycol (Miralax) 17 gm PO DAILY [facility] Last Admin: 09/05/18 08:31 Dose: Not Given Polysaccharide Iron Complex (Ferrex 150) 150 mg PO DAILYCM [facility] Last Admin: 09/05/18 08:30 Dose: 150 mg Senna/Docusate Sodium (Senokot-S, Holly-Colace) 2 tablet PO BID [facility] Last Admin: 09/05/18 08:31 Dose: Not Given Discharge Diet: No Restrictions Discharge Activity: May Not Drive, May Shower - make sure the brace is well covered when showering, Use Walker - Non-weight bearing to the right leg may hop using Left leg only, - - Do not soak in a Tub bath until cleared by Ortho Weight Bearing Status: No weight bearing Keep extremity elevated above heart level: Right Leg Call your doctor if your incision/area has: Increased Pain/ Swelling, Increased Redness, Foul Smelling Discharge, Swelling at the incision site Call your doctor if you observe: Fever of 101 or Higher, Coldness, Increased Pain, Numbness or Tingling, Change in Color, Inability to urinate, Inability to have a bowel movement, Using more than one pad per hour, Shortness of breath, Dizziness, Fainting spells, Swelling in the ankles, Chest pain, Prolonged hiccoughing, Increased palpitations (irregular heartbeat), Calf discomfort, Uncontrolled pain Home Medications: Medications to take at Discharge Acetaminophen 500 mg PO TID 08/22/18 Aspirin 81 mg PO DAILY 08/22/18 Amlodipine [Norvasc] 10 mg PO DAILY #30 tablet 09/05/18 Ascorbic Acid [Vitamin C] 250 mg PO DAILYCM #30 tablet 09/05/18 Atorvastatin Calcium [Lipitor] 20 mg PO QHS #30 tablet 09/05/18 Cholecalciferol (Vitamin D3) [Vitamin D3] 2,000 unit PO DAILY #30 capsule 09/05/18 Cyanocobalamin (Vitamin B-12) [Vitamin B-12] 1,000 mcg PO DAILY #30 capsule 09/05/18 Iron Polysaccharide Complex [Ferrex 150] 150 mg PO DAILYCM #30 capsule 09/05/18 Following Prescrptions Were Given to Patient: Amlodipine [Norvasc] 10 mg PO DAILY #30 tablet Ascorbic Acid [Vitamin C] 250 mg PO DAILYCM #30 tablet Atorvastatin Calcium [Lipitor] 20 mg PO QHS #30 tablet Cholecalciferol (Vitamin D3) [Vitamin D3] 2,000 unit PO DAILY #30 capsule Cyanocobalamin (Vitamin B-12) [Vitamin B-12] 1,000 mcg PO DAILY #30 capsule Iron Polysaccharide Complex [Ferrex 150] 150 mg PO DAILYCM #30 capsule Primary Care Physician: Care Physician,No Primary [Primary Care Provider] - Please Follow Up With: Primary Care Physician Please Follow Up With: [facility] - [facility]py Disposition: Home with Home Health Minutes spent on discharge:: 40 Patient Condition:: Good Rehab Course The patient is a 68 year old Female who is admitted to the rehab unit for rehabilitation after suffering a mechanical fall on her back deck. She has a pass medical history of HTN, HLD, Arthritis. According to the patient the deck was slightly wet, and at the time she was wearing flip flops, when she slipped trapping her right leg behind her. An X-ray showed an acute angulated displaced fracture of the distal femoral diaphysis. She was taken to the OR by Dr. Martines on where a right retrograde femoral nailing for periprosthetic distal femur fracture was preformed with out complications. Patient received Ancef postop for 24 hours, she is Non-weightbearing with brace at all time to the right leg for at least 2 weeks until cleared by Dr. Martines. She also sustained a bruise at her right posterior forearm; and a small wound at the right medial ankle. She lives alone, in an apartment, in [place]. The plan is for her to go home with her youngest daughter would lives here in [place], until she is ready to return home. She was previously completely functionally independent and is admitted to the rehab unit in order to restore her previous level of functional independence. Summary of care: Debility s/p right retrograde intramedullary nailing of an angulated displaced distal femoral shaft periprosthetic fracture. Complicated by HTN, and acute blood loss anemia. Goal of rehab is sabianism of functional independence. - Physical therapy for gait and balance - Occupational Therapy for ADLs - Weight bearing status is Non-weight bearing with brace at all time for next two weeks, will be reassessed by Dr. Martines for new weight bearing status at that time. Obtain X-Rays of right femur prior to appointment. - As needed analgesics - Bowel protocol - Incision wound -> right retrograde intramedullary nailing of an angulated displaced distal femoral shaft periprosthetic fracture - Anemia 2/2 acute blood loss anemia following distal femur fracture and surgery. Patient did receive parenteral iron transfusion; discharged on oral iron - HX of HLD - Continue home dose of Statin - Hx of HTN - BP well controlled on home medications - DVT prophylaxis - Lovenox, SCDs,and Rene hoses on the Left only. - Fall Precautions - X-rays of Femur and Pelvic done in preparation for discharge and appointment with Dr. Martines -> X-rays reviewed by Ortho team, patient will remain in brace at all times, will maintain Non-weight bearing status until cleared by Ortho in 1 month with follow up X-rays. - Plan is for discharge Wednesday 09/05 home, with Home health, Physical therapy. - Pain in right calf and ankle - Doppler US obtained => Doppler was negative for DVT With Physical therapy, she is able to get in and out of bed at stand by assist. She is hopping using the left leg 2/2 NWBT on the right 25 feet using a walker. They have simulated a step by having her hop onto a platform the same height as the entryway into her home, at stand by assist. With Occupational therapy, she is able to do all her own self care at set up level, for showers they wrap her leg so that she is able to take a shower using a shower chair. They have worked on wheelchair mobility which she is doing well. With Nursing her pain is well controlled, she does not require pain medication, only the occasional Tylenol. Her incision site is C/D/I, and well approximated, there is no swelling, or redness noted to the site. Meaningful Use Info Meaningful Use Diagnoses (Choose all that apply): None applicable
--- NOTE | 2018-09-05 10:18 | DCINST_ITS ---
- Discharge Diagnoses Reason(s) for Visit for Discharge Instructions: Right Femur fracture You will use the following diet at home:: Regular Your food should be the consistency of: Regular Discharge Activity: May Not Drive, May Shower - make sure the brace is well covered when showering, Use Walker - Non-weight bearing to the right leg, - - Do not soak in a Tub bath until cleared by Ortho Weight Bearing Status: No weight bearing Keep extremity elevated above heart level: Right Leg Call your doctor if your incision/area has: Increased Pain/ Swelling, Increased Redness, Foul Smelling Discharge, Swelling at the incision site Call your doctor if you observe: Fever of 101 or Higher, Coldness, Increased Pain, Numbness or Tingling, Change in Color, Inability to urinate, Inability to have a bowel movement, Using more than one pad per hour, Shortness of breath, Dizziness, Fainting spells, Swelling in the ankles, Chest pain, Prolonged hiccoughing, Increased palpitations (irregular heartbeat), Calf discomfort, Uncontrolled pain Allergies/Adverse Reactions: Allergies meloxicam Allergy (Verified 08/25/18 18:37) Itching Sulfa (Sulfonamide Antibiotics) Allergy (Verified 08/25/18 18:37) Swelling Medications to take at Discharge Acetaminophen 500 mg PO TID 08/22/18 Aspirin 81 mg PO DAILY 08/22/18 Amlodipine [Norvasc] 10 mg PO DAILY #30 tablet 09/05/18 Ascorbic Acid [Vitamin C] 250 mg PO DAILYCM #30 tablet 09/05/18 Atorvastatin Calcium [Lipitor] 20 mg PO QHS #30 tablet 09/05/18 Cholecalciferol (Vitamin D3) [Vitamin D3] 2,000 unit PO DAILY #30 capsule 09/05/18 Cyanocobalamin (Vitamin B-12) [Vitamin B-12] 1,000 mcg PO DAILY #30 capsule 09/05/18 Iron Polysaccharide Complex [Ferrex 150] 150 mg PO DAILYCM #30 capsule 09/05/18 The following prescriptions were given: Amlodipine [Norvasc] 10 mg PO DAILY #30 tablet Ascorbic Acid [Vitamin C] 250 mg PO DAILYCM #30 tablet Atorvastatin Calcium [Lipitor] 20 mg PO QHS #30 tablet Cholecalciferol (Vitamin D3) [Vitamin D3] 2,000 unit PO DAILY #30 capsule Cyanocobalamin (Vitamin B-12) [Vitamin B-12] 1,000 mcg PO DAILY #30 capsule Iron Polysaccharide Complex [Ferrex 150] 150 mg PO DAILYCM #30 capsule Primary Care Physician: Care Physician,No Primary [Primary Care Provider] - Test Results: Test results from this visit will be discussed in further detail at your follow- up appointment, if applicable. Please Follow Up With: Primary Care Physician Please Follow Up With: [facility] - [facility] Proposed Discharge Date: 09/05/18
--- NOTE | 2018-09-05 14:29 | NURSING ---
Discharge instructions given and patient and daughter verbalized understanding.
[2018-09-05 14:30] VITALS: BP 130/70; PULSE 84; RESP 16; TEMP 36.6; O2SAT 97
== END 2018-09-05 14:30 | disposition home health service (06) | DRG 560 ==
PROVIDERS: Nurse Practitioner Acute Care; Admitting Provider Psychiatry & Neurology Neurology; Referring Provider Psychiatry & Neurology Neurology; Visit Provider Internal Medicine
DX: M97.11XD Periprosthetic fracture around internal prosthetic right knee joint, subsequent encounter (principal); D62 Acute posthemorrhagic anemia; S72.401D Unspecified fracture of lower end of right femur, subsequent encounter for closed fracture with routine healing; W18.39XD Other fall on same level, subsequent encounter; I10 Essential (primary) hypertension; E78.5 Hyperlipidemia, unspecified; M19.90 Unspecified osteoarthritis, unspecified site; S50.11XD Contusion of right forearm, subsequent encounter; Z87.891 Personal history of nicotine dependence
CPT/HCPCS: 36415; 72170; 73552; 80053; 83735; 84100; 85025; 93971; 97110; 97116; 97162; 97166; 97530; 97535